=== PATIENT | female | born 1945 | race Caucasian/White ===

== ENCOUNTER → 2017-05-03 08:33 | Outpatient (CLI) | payer MEDICARE, OTHER, SELFPAY ==
--- NOTE | 2017-05-03 08:35 | HPBD_ITS ---
STUDY: DUAL ENERGY X-RAY ABSORPTIOMETRY / DXA REASON FOR EXAM: Female, 71 years old. The patient is postmenopausal. Loss of height. TECHNIQUE: Bone Mineral Density (BMD) measurements of lumbar spine and bilateral hips were obtained. COMPARISON: Comparison is made with prior examination dated March 27, 2015. FINDINGS: Lumbar Spine (L1-L4): g/cm2 (1.352) / T-score (1.5) / Z-score (3.2) Findings are suggestive of normal bone density with a low fracture risk. Left Femur Total: g/cm2 (1.107) / T-score (0.8) / Z-score (2.4) Left Femoral Neck: g/cm2 (0.940) / T-score (-0.7) / Z-score (1.1) Right Femur Total: g/cm2 (1.029) / T-score (0.2) / Z-score (1.8) Right Femoral Neck: g/cm2 (0.915) / T-score (-0.9) / Z-score (0.9) The T-Scores on the most recent prior examination were: Lumbar Spine (L1-L4): There has been worsening of bone density since the previous examination. Left Femur Total: which represents a worsening of 4.2%. Right Femur Total: which represents a worsening of 5.2%. HPBD/Dexa Bone Density Study (HP) IMPRESSION: The patient is considered normal as outlined below according to World Randy Organization (WHO) criteria with a low fracture risk. There has been worsening of bone density since the previous examination. Reference Information: The T-score is the number of standard deviations above or below the standard which is normal for young adults at their peak bone mineral density. The World Health Organization (WHO) interprets the T-scores as follows: Above -1 Normal bone density Between -1 and -2.5 Osteopenia Equal to / or below -2.5 Osteoporosis As a practical clinical guideline, osteopenia may be graded as follows: Mild -1 through -1.5 Moderate -1.6 through -2.0 Severe -2.1 through -2.4 The Z-score is the number of standard deviations above or below age-matched controls. A Z-score of less than -1.5 would be considered abnormal. References: 1. NIH Osteoporosis and Related Bone Diseases http://www.osteo.org 2. International Society for Clinical Densitometry http://www.iscd.org 3. National Osteoporosis Foundation http://www.nof.org Electronically Signed: Jairo Welch MD at 14:57 EST Tel [phone], Service support ,
== END ==
PROVIDERS: Family Provider Internal Medicine; PCP Internal Medicine; Visit Provider Internal Medicine
DX: Z78.0 Asymptomatic menopausal state (principal)
CPT/HCPCS: 77080

== ENCOUNTER → 2017-12-15 08:28 | Outpatient (CLI) | payer MEDICARE, OTHER, SELFPAY ==
--- NOTE | 2017-12-15 08:31 | BI_ITS ---
MAMMOGRAPHY - BILATERAL SCREENING REASON FOR EXAM: Female, 72 years old. Routine annual screening examination. PERTINENT HISTORY: Non-contributory. TECHNIQUE: Digital bilateral breast elizabeth (3D mammographic acquisition) in the CC and MLO projections. 2-D mediolateral oblique (MLO) and craniocaudad (CC) views of both breasts were obtained. CAD: Full Field Digital Mammography with Computer Added Detection was performed. COMPARISON: Comparison is made with prior study dated June 18, 2016 and April 17, 2015. FINDINGS: Breast Composition: There are scattered areas of fibroglandular density. There are no dominant masses or suspicious calcifications. Stable small benign-appearing bilateral axillary lymph nodes. No other significant abnormalities are identified. There has been no significant change since the prior study. BI/SCREENING MAMM (CAD), BILAT IMPRESSION: Stable bilateral screening mammogram. Yearly follow-up mammogram recommended. (A) ASSESSMENT CATEGORY: BIRADS Category 2: Benign. A letter regarding these results will be sent to the patient by the facility within 30 days. Approximately 10% of breast cancers are not detected by mammography. A normal mammogram should not delay biopsy of a clinically suspicious abnormality. [id number] Electronically Signed: Jairo Welch MD at 9:43 EDT Tel [phone], Service support ,
== END ==
PROVIDERS: Family Provider Internal Medicine; PCP Internal Medicine; Visit Provider Internal Medicine
DX: Z12.31 Encounter for screening mammogram for malignant neoplasm of breast (principal)
CPT/HCPCS: 77063; 77067

== ENCOUNTER → 2018-01-27 15:41 | Outpatient (CLI) | payer MEDICARE, OTHER, SELFPAY | PROVIDERS: Family Provider Internal Medicine; PCP Internal Medicine; Referring Provider Nurse Practitioner; Visit Provider Nurse Practitioner | DX: N89.8 Other specified noninflammatory disorders of vagina (principal) | CPT/HCPCS: 87070; 87205 ==

== ENCOUNTER → 2018-05-19 12:09 | Outpatient (CLI) | payer MEDICARE, OTHER, SELFPAY ==
--- NOTE | 2018-05-19 13:00 | MRI_ITS ---
STUDY: MRI BRAIN WITH AND WITHOUT CONTRAST (ATTENTION INTERNAL AUDITORY CANALS - I.A.C.s) REASON FOR EXAM: Female, 72 years old. Hearing loss with ataxia and headaches. TECHNIQUE: Standardized multiplanar fat and water weighted pulse sequences were obtained. Gadavist 10 ml IV was administered for the contrast portion of the examination. Several images are limited by patient motion. COMPARISON: Prior comparison studies are not available for review at this time. FINDINGS: Normal bilateral temporal bones. Normal bilateral internal auditory canals. There is no demonstrated intracanalicular or cisternal vestibular schwannoma (acoustic neuroma). There is no enhancement of the bilateral VIIth or VIIIth cranial nerves. Normal bilateral cochlea, vestibules and semicircular canals. There is mild cerebral atrophy with widening of the extra-axial spaces and ventricular dilatation. There are a limited number of small white matter hyperintensities, distributed throughout the deep white matter tracts of the cerebral hemispheres, consistent with mild chronic white matter ischemic changes. There is no evidence for recent intracranial ischemia or other cause of cytotoxic edema on diffusion weighted imaging (DWI). Normal T2* images of the brain without demonstrated susceptibility artifact. There is no demonstrated hemosiderin stain. There are prominent perivascular spaces (PVS) involving the basal ganglia. Normal thalami. Normal flow voids within the major intracranial circulation suggesting patency by spin echo criteria. Normal venous enhancement. There is no enhancing intra-axial or extra-axial abnormality. There is no extra-axial fluid accumulation. Normal sella turcica, pituitary gland, infundibular stalk, optic chiasm and hypothalamus. Normal tectal plate and pineal gland. Normal midbrain, ryan and medulla. There are mild involutional changes of the cerebellum with increased CSF in the posterior fossa. Normal basal cisterns. There are bilateral ocular lens implants with otherwise normal intraorbital contents. Normal visualized paranasal sinuses. Normal calvarium and skull base. Normal visualized soft tissue structures. Normal visualized upper cervical spine. MRI/Brain W/WO Contrast IMPRESSION: 1. Involutional changes of the brain, as described above. 2. No MR evidence of acute infarct. 3. No MR evidence for cerebellopontine angle mass or internal auditory canal lesion. Electronically Signed: Lorie Chavez MD at 11:53 EST , Service support ,
== END ==
PROVIDERS: Family Provider Internal Medicine; PCP Internal Medicine; Referring Provider Otolaryngology Otolaryngology/Facial Plastic Surgery; Visit Provider Otolaryngology Otolaryngology/Facial Plastic Surgery
DX: H91.21 Sudden idiopathic hearing loss, right ear (principal); H93.19 Tinnitus, unspecified ear; R51 Headache; R27.0 Ataxia, unspecified
CPT/HCPCS: 70553; A9585

== ENCOUNTER → 2018-08-21 | Outpatient (CLI) | payer MEDICARE, OTHER, SELFPAY ==
--- NOTE | 2018-08-21 13:41 | STRESSREP ---
Stress Test Report Pharmacologic myocardial perfusion stress test. 72-year-old lady with a history of exertional chest pain. Medications Metformin carvedilol losartan atorvastatin. Stress protocol: Resting EKG demonstrates normal sinus rhythm with a rate of 75 bpm normal intervals are noted resting blood pressures 152/82 mmHg. The patient exercised according to regular Mario protocol for a total duration of 4 minutes and 45 seconds. The maximum heart rate attained was 127 bpm which was 86% of maximum predicted heart rate the maximum workload was 6.7 metabolic equivalents. The patient maintained sinus rhythm throughout the recording. At rest there were no ST or T wave changes noted suggest ischemia at peak exercise mildly upsloping ST changes were noted with no meet the criteria for ischemia. No clinical angina was noted the test was terminated due to shortness of breath. The resting blood pressure was 152/82 with a final blood pressure of 150/88. Myocardial perfusion protocol. 11.9 mCi of technetium 99m sestamibi was injected at rest. The patient exercised according to regular Mario protocol for 4 minutes and 45 seconds at peak exercise 34.2 mCi of technetium 99m sestamibi was injected stress images were obtained stress and rest images were reconstructed in comparing the short axis vertical long horizontal long axis. Gated images were also obtained Perfusion SPECT analysis: Review of the stress images demonstrate normal uptake of tracer noted in all areas of the myocardium. The resting images similarly demonstrate normal uptake of tracer noted in all areas of myocardium. No areas of reversibility are noted suggest ischemia. No previous infarct is noted. Gated SPECT analysis: The gated ejection fraction is noted to be 77%. Conclusion: Normal exercise myocardial perfusion stress test at a moderate workload Preserved ejection fraction.
== END | disposition home or self-care (01) ==
LOC: CVS 06:39
PROVIDERS: Family Provider Internal Medicine; PCP Internal Medicine; Referring Provider Internal Medicine; Visit Provider Internal Medicine
DX: R07.9 Chest pain, unspecified (principal)
CPT/HCPCS: 78452; 93017; A9500; A4216; J2785

== ENCOUNTER → 2018-12-20 14:37 | Outpatient (CLI) | payer MEDICARE, OTHER, SELFPAY ==
--- NOTE | 2018-12-20 14:39 | BI_ITS ---
MAMMOGRAPHY - BILATERAL SCREENING REASON FOR EXAM: Female, 73 years old. Routine annual screening examination. PERTINENT HISTORY: Non-contributory. TECHNIQUE: Digital bilateral breast concepcion (3D mammographic acquisition) in the CC and MLO projections. 2-D mediolateral oblique (MLO) and craniocaudad (CC) views of both breasts were obtained. CAD: Full Field Digital Mammography with Computer Added Detection was performed. COMPARISON: Comparison is made with prior study dated December 15, 2017 and June 18, 2016. FINDINGS: Breast Composition: There are scattered areas of fibroglandular density. There are no dominant masses or suspicious calcifications. Stable small benign-appearing bilateral axillary lymph nodes. No other significant abnormalities are identified. There has been no significant change since the prior study. BI/SCREEN MAMM (CAD) W/CONCEPCION BILAT IMPRESSION: Stable bilateral screening mammogram. Yearly follow-up mammogram recommended. (A) ASSESSMENT CATEGORY: BIRADS Category 1: Negative. A letter regarding these results will be sent to the patient by the facility within 30 days. Approximately 10% of breast cancers are not detected by mammography. A normal mammogram should not delay biopsy of a clinically suspicious abnormality. [id number] Electronically Signed: Jairo Welch, at 15:54 EDT , Service support ,
== END ==
PROVIDERS: Family Provider Internal Medicine; PCP Internal Medicine; Referring Provider Internal Medicine; Visit Provider Internal Medicine
DX: Z12.31 Encounter for screening mammogram for malignant neoplasm of breast (principal)
CPT/HCPCS: 77063; 77067

== ENCOUNTER 2019-06-27 17:47 | Emergency (ER) | payer MEDICARE, OTHER, SELFPAY ==
[2019-06-27 17:48] VITALS: BP 176/87; PULSE 88; RESP 16; TEMP 36.6; O2SAT 98; BMI 35.3
--- NOTE | 2019-06-27 17:48 | NURSING ---
NO OLD EKGS
--- NOTE | 2019-06-27 18:02 | EKG12_ITS ---
Test Reason : Blood Pressure : / mmHG Vent. Rate : 078 BPM Atrial Rate : 078 BPM P-R Int : 174 ms QRS Dur : 098 ms QT Int : 386 ms P-R-T Axes : 060 -33 040 degrees QTc Int : 440 ms Normal sinus rhythm Left axis deviation Abnormal ECG Confirmed by MISTY GARCIA, MALATHI ([id number]), editor magazine RYAN ESCALANTE ([id number]) on 06/29/2019 9:36:13 AM Referred By: DARREL Confirmed By:SPENCER JAY MD
--- NOTE | 2019-06-27 18:03 | ED.DCSUM_ITS ---
History of Present Illness Chief Complaint: Palpitations Narrative: Patient states she was woken up in the middle of the night this past night, 12 or more hours ago from now, with the feeling like her heart was beating hard. She denies it beating fast, skipping. She just states that the rate seemed normal but she could tell it was beating which is abnormal for her she usually does not feel that as she is walking around. She states this was intermittent. She also had intermittent chest tightness, 3 or 4 episodes lasting 15 or 20 minutes at a time, nonpleuritic and without any dyspnea. No lightheadedness or syncope/near syncope. No recent travel, pain or swelling in her legs, history of venous thromboembolic disease, and she does not take any anticoagulants. No history of heart disease. She had a stress test 8 months ago that was negative, and has never needed a heart catheterization. She is on losartan and carvedilol for blood pressure and has been compliant with it not skipping or running out of any of these medicines. She denies taking any decongestants in the last couple days. 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 Called her doctor who earlier had her take an extra dose of her losartan 50 mg, and later sent her to the ER. - Past Medical History (1) Recurrent UTI (urinary tract infection) Status: Chronic (2) Hyperlipidemia Status: Chronic (3) Hypertension Status: Chronic (4) Irritable bowel syndrome Status: Chronic (5) M?ni?re's disease Status: Chronic (6) Osteoarthritis Status: Chronic (7) Type 2 diabetes mellitus Status: Chronic (8) Vitamin D deficiency Status: Chronic Past Medical History - Allergies and Home Meds Allergies/Adverse Reactions: Allergies No Known Allergies Allergy (Verified 06/27/19 17:50) Primary Care Physician: Indu Soria DO [Primary Care Provider] - Surgical History: - - sections, nasal reconstruction, tubal ligation, bilateral total knee replacement, cataract extraction with intraocular lens implants, hysterectomy, cholecystectomy and carpal tunnel surgery. Lives: Alone Smoking Status: Never smoker - Family History Maternal Family History: Reports: Cancer - ovarian with mets to the lung and the brain in mother Paternal Family History: Reports: - - father had a brain tumor Sibling Family History: Reports: - - sister with BPD, Brother with DM...also with FH of alcoholism in a brother Review of Systems General: Denies: Chills, Fever, Sweats Eyes: Denies: Visual changes - bilaterally, Diplopia ENT: Denies: Bilateral ear pain, Rhinorrhea, Sore throat Cardiovascular: Reports: Chest pain - without radiation when occur, Palpitations. Denies: Heart racing Respiratory: Denies: Dyspnea, Cough, Sputum, Dyspnea on exertion, Orthopnea Gastrointestinal: Denies: Abdominal pain, Nausea, Vomiting, Diarrhea, Melena, Hematochezia Genitourinary: Denies: Dysuria, Hematuria, Frequency Musculoskeletal: Denies: Neck pain, Back pain, Swelling, Extremity Pain Skin: Denies: Rash, Wounds Neurological: Denies: Headache, Weakness, Numbness Physical Exam Vital Signs/Narrative: Vital Signs Temp Pulse Resp BP Pulse Ox 06/27/19 17:48 97.9 F 88 16 176/87 H 98 Inital Vital Signs reviewed: Yes General: Well nourished, Well developed, Obese, No Acute Distress Head: Normocephalic, Atraumatic Eyes: Perrl, EOMI ENT: Moist mucous membranes, No rhinorrhea Neck: Supple, Nontender, No lymphadenopathy, No JVD Cardiovascular: Regular rate, Regular rhythm, No murmurs, Normal S1, Normal S2. Negative for: Tachycardia Respiratory: No distress, CTA bilaterally, Chest nontender Abdomen: Soft, Nontender, Nondistended, Normal bowel sounds Back: Nontender, Normal Inspection, CVA tenderness Extremities: Nontender, No edema. Negative for: Calf Tenderness Skin: Normal color, No rash, No Trauma Neurological: Alert, Oriented x3, Cranial nerves II-XII grossly intact, Normal Strength, Normal Sensation, Normal Gait Psychological: Normal affect, Normal Mood Diagnostic/Tx/Re-eval Impressions Chest X-Ray 06/27/19 19:19 IMPRESSION: Normal x-ray examination of the chest. Electronically Signed: Peter Gao DO at 19:50 EDT Tel [phone], Service support , 06/27/19 19:19 Chest 1 View (Portable) [RAD] Stat Laboratory Results 06/27/19 06/27/19 18:36 18:36 WBC 10.0 RBC 4.36 Hgb 13.3 Hct 38.7 MCV 88.8 MCH 30.5 MCHC 34.4 RDW Std Deviation 38.9 RDW Coeff of Rojelio 12.0 Plt Count 294 MPV 9.6 Immature Gran % (Auto) 0.500 Neut % (Auto) 67.1 Lymph % (Auto) 24.5 Whitfield % (Auto) 6.8 Eos % (Auto) 0.7 Baso % (Auto) 0.4 Absolute Neuts (auto) 6.7 Absolute Lymphs (auto) 2.46 Nucleated RBC % 0 Sodium 142 Potassium 3.8 Chloride 111 H Carbon Dioxide 24.0 Anion Gap 7 BUN 18 Creatinine 1.06 H Estim Creat Clear Calc 36.83 Est GFR (MDRD) Af Amer 65 Est GFR (MDRD) Non-Af 54 L BUN/Creatinine Ratio 17.0 Glucose 122 H Calcium 9.6 Troponin I < 0.015 - Rhythm Strip Rhythm Strip: Sinus Rhythm Rate: 78 Ectopy: None - EKG Initial EKG Interpretation: Sinus Rhythm, No Acute Injury Pattern, LAFB Prior: No Prior - Medical Decision Making Prior to being able to give her anything for her blood pressure, her pressure came down to the 140s on recheck. Nursing held the clonidine that was ordered. It did not become necessary, her pressure went up into the 150s at one point, but she had no recurrent chest discomfort or other acute symptoms. Her work-up is negative. I feel she can safely be discharged home to follow-up with her doctor with regards to medication changes and outpatient testing. ED Disposition - Plan for ED Patient: Disposition: Home or Assisted Living Diagnosis: Intermittent chest pain, Accelerated hypertension Instructions: ED High Blood Pressure Established Out of Control, ED Chest Pain Atypical Unkn Cause Referrals: Indu Soria DO [Primary Care Provider] - 2 Days Additional Instructions: If you continue to have elevated pressures over 165 systolic, you may double your carvedilol (both doses if necessary) if your doctor has not yet gotten back to you about medication changes.
[2019-06-27] MEDS: Aspirin 81 MG TAB.CHEW 324 MG PO (18:24)
[2019-06-27 18:25] VITALS: BP 143/67; PULSE 79; RESP 16; O2SAT 96
[2019-06-27 18:31] VITALS: BP 132/84; PULSE 81; RESP 16; O2SAT 97
[2019-06-27 18:42] LABS: Absolute Lymphocyte Count 2.46 X10^3/uL (0.83-4.51); Absolute Neutrophil Count 6.7 X10^3/uL (2.0-7.7); Basophil# 0.04 X10^3/uL; Basophil% 0.4 % (0-1); Eosinophil# 0.07 X10^3/uL; Eosinophils% 0.7 % (0-5); Hematocrit 38.7 % (37-47); Hemoglobin 13.3 g/dL (12.0-15.0); Lymphocyte # 2.46 X10^3/ul (4.0); Lymphocyte % 24.5 % (19-41); Mean Corp Hgb Conc 34.4 g/dL (32-36); Mean Corpuscular Hgb 30.5 pg (27.0-32.0); Mean Corpuscular Volume 88.8 fL (81-99); Mean Platelet Vol. 9.6 fl (6.2-12.0); Monocyte# 0.68 X10^3/uL; Monocyte% 6.8 % (0-10); NRBC Flagged by Analyzer 0 % (0-5); Neutrophil # 6.74 X10^3/uL (2.7-7.7); Neutrophil % 67.1 % (47-70); Platelet Count 294 K/mm3 (150-450); RBC Distribution Width SD 38.9 fl (35.1-43.9); Red Blood Count 4.36 M/mm3 (4.2-5.4)
[2019-06-27 18:59] LABS: Anion Gap 7 (5-15); BUN 18 mg/dL (7-18); Calcium,Total 9.6 mg/dL (8.5-10.1); Chloride 111 mmol/L (98-107); Creatinine, Serum 1.06 mg/dL (0.55-1.02); EST Glomerular Filtration Rate 54 mL/min (>60); Est Glom Filt Rate - Afr Amer 65 mL/min (>60); Estimated Creatinine Clearance 36.83 ml/min; Glucose 122 mg/dL (74-106); Potassium 3.8 mmol/L (3.5-5.1); Sodium Level 142 mmol/L (136-145)
--- NOTE | 2019-06-27 19:19 | RAD_ITS ---
STUDY: X-RAY CHEST REASON FOR EXAM: Female, 73 years old. CHEST PALPITATIONS TODAY. NO PAIN OR PRIOR CARDIAC HX. TECHNIQUE: Frontal view COMPARISON: None. FINDINGS: The lungs are clear and expanded. There is no demonstrated pleural abnormality. Normal size heart. Normal mediastinum and shelli. Normal visualized pulmonary arteries. Normal visualized aortic arch and descending thoracic aorta. Normal visualized thoracic spine. Normal visualized ribs, clavicles, and shoulders. There is no demonstrated abnormality of the visualized soft tissue structures of the upper abdomen. RAD/Chest 1 View (Portable) IMPRESSION: Normal x-ray examination of the chest. Electronically Signed: Peter Gao DO at 19:50 EDT Tel [phone], Service support ,
[2019-06-27 20:17] VITALS: BP 152/77; PULSE 67; RESP 16; O2SAT 97
== END 2019-06-27 20:23 | disposition home or self-care (01) ==
PROVIDERS: Emergency Provider Emergency Medicine; PCP Internal Medicine
DX: R07.89 Other chest pain (principal); I10 Essential (primary) hypertension; E66.9 Obesity, unspecified; K58.9 Irritable bowel syndrome, unspecified; E11.9 Type 2 diabetes mellitus without complications; E55.9 Vitamin D deficiency, unspecified; M19.90 Unspecified osteoarthritis, unspecified site; H81.09 Meniere's disease, unspecified ear; Z87.440 Personal history of urinary (tract) infections; Z79.4 Long term (current) use of insulin; Z79.84 Long term (current) use of oral hypoglycemic drugs; Z79.899 Other long term (current) drug therapy
CPT/HCPCS: 71045; 80048; 84484; 85025; 93005; 99284; A4216

== ENCOUNTER 2019-07-11 19:18 | Emergency (ER) | payer MEDICARE, OTHER, SELFPAY ==
[2019-07-11 19:19] VITALS: BP 161/76; PULSE 62; RESP 13; TEMP 36.8; O2SAT 97; BMI 36.3
[2019-07-11 19:33] VITALS: BP 158/70; PULSE 65; RESP 16; O2SAT 96
--- NOTE | 2019-07-11 19:52 | EKG12_ITS ---
Test Reason : DIZZINESS Blood Pressure : / mmHG Vent. Rate : 061 BPM Atrial Rate : 061 BPM P-R Int : 180 ms QRS Dur : 096 ms QT Int : 410 ms P-R-T Axes : 003 -25 004 degrees QTc Int : 412 ms Normal sinus rhythm Normal ECG Confirmed by MISTY GARCIA, MALATHI ([id number]), graphics editor RYAN ESCALANTE ([id number]) on 07/16/2019 10:55:01 AM Referred By: DR STAPLES Confirmed By:SPENCER JAY MD
--- NOTE | 2019-07-11 19:52 | CT_ITS ---
STUDY: CT BRAIN WITHOUT CONTRAST REASON FOR EXAM: Female, 73 years old. DIZZINESS,NAUSEA,NUMBNESS AND TINGLING TO BILAT ARMS -- HX:HTN,DIABETES,MENIERE''S DISEASE RADIATION DOSAGE (If Supplied By Facility): CTDIvol = ( 44.99 ) mGy, DLP = ( 796.11 ) mGycm TECHNIQUE: Transaxial CT imaging of the brain was performed without administration of intravenous contrast material. Individualized dose optimization techniques were used for this CT. COMPARISON: No relevant priors. FINDINGS: Normal soft tissue structures. Normal calvarium. Normal size ventricles and extra-axial spaces for the patient''s age. Mild periventricular white matter ischemic changes.. Normal basal ganglia and thalami. Normal brainstem. Normal cerebellum. There is no intracranial hemorrhage. There are no findings of an acute ischemic infarction. Postsurgical changes of the orbits Normal visualized paranasal sinuses. CT/Brain/Head without Contrast IMPRESSION: Mild periventricular matter ischemic changes. No evidence for acute bleed. If concern for acute infarct MRI recommended.. Electronically Signed: Rober Bejarano MD at 20:35 EDT , Service support ,
--- NOTE | 2019-07-11 19:55 | ED.DCSUM_ITS ---
- ER Visit Summary Date of Service: 07/11/19 Chief Complaint: Transient dizziness History of Present Illness: The patient is a 73 F history of insulin-dependent diabetes, hypertension, valvular heart disease, M?ni?re's. Patient states around 10 AM today she had dizziness which resolved quickly. Then tonight it began around 5:30 PM. Said it also had tingling in her left arm went across her chest and her right arm. No chest pain. No shortness of breath. She did have some nausea vomiting associated with it. There was kind of a room spinning sensation. States she feels better now just a little tired. Denies any visual change currently. Denies any trouble using her arms or legs. Denies any tro uble with speech. She is never had a stroke or mini stroke. She denies any headache. No recent head trauma. She is on no blood thinners. States she is never had anything like this before. Physical Examination: Older female no acute distress. Initial blood pressure 161/76. She does not look septic or toxic. H EENT exam normal. No signs of trauma. Pupils are unreactive laser motions are intact. No facial droop. Normal speech. TMs normal bilaterally. No wax. Neck nontender no lymphadenopathy. Lungs clear to auscultation bilaterally. Heart regular rate and rhythm no murmur rate about 60. Chest were nontender. Abdomen soft nontender normal bowel sounds no peritoneal signs. Patient moving all 4 extremities. Neurovascular intact. 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 Dorsi plantarflexion intact. Calves are nontender without edema. Neurologically she is awake alert with no focal motor or sensory deficits. Normal speech. No facial droop. Fingertip to nose within normal limits. She has no drift. NIH score is 0. Test Results: CAT scan of the brain showed mild periventricular ischemic white matter changes. But no acute stroke or bleed. EKG sinus rhythm rate of 61 no acute signs of LA or ischemia. No dysrhythmia. CBC showed a white count of 13 with a hemoglobin of 12 and hematocrit 38. No bands. Chemistries unremarkable gap of 6. Creatinine 0.9. Orthostatic vital signs were negative. Emergency Department Course and Treatment: Older female with dizziness currently resolved. Her Hallpike maneuver is negative. I cannot reproduce the dizziness at this time. Her neurologic exam is normal. She undergo screening exams. CAT scan of her brain. She will be ambulated to assess her gait and balance. Repeat exam patient is doing well at 21:02 PM. She will be discharged home with outpatient follow-up. I walked the patient prior to discharge. Treatment Plan: Follow-up with her primary care physician. Disposition: Discharge Impression: Acute dizziness of uncertain etiology History of insulin-dependent diabetes History of hypertension This note was generated with [employer] dictation software. It may contain incorrect words, spelling, and punctuation that were not noted in review of the chart prior to signing ED Disposition - Plan for ED Patient: Referrals: Indu Soria DO [Primary Care Provider] -
[2019-07-11 20:07] VITALS: BP 149/67; BP 150/68; BP 152/71; PULSE 64; PULSE 67; PULSE 71
[2019-07-11 20:28] LABS: Anion Gap 6 (5-15); BUN 18 mg/dL (7-18); BUN/Creat Ratio 19.3 RATIO (10-20); Calcium,Total 9.2 mg/dL (8.5-10.1); Chloride 107 mmol/L (98-107); Creatinine, Serum 0.93 mg/dL (0.55-1.02); EST Glomerular Filtration Rate 62 mL/min (>60); Est Glom Filt Rate - Afr Amer 76 mL/min (>60); Estimated Creatinine Clearance 41.97 ml/min; Glucose 121 mg/dL (74-106); Potassium 3.9 mmol/L (3.5-5.1); Sodium Level 140 mmol/L (136-145)
[2019-07-11 20:44] LABS: Absolute Lymphocyte Count 1.91 X10^3/uL (0.83-4.51); Absolute Neutrophil Count 10.5 X10^3/uL (2.0-7.7); Basophil# 0.04 X10^3/uL; Basophil% 0.3 % (0-1); Eosinophil# 0.09 X10^3/uL; Eosinophils% 0.7 % (0-5); Hematocrit 38.2 % (37-47); Hemoglobin 12.8 g/dL (12.0-15.0); Lymphocyte # 1.91 X10^3/ul (4.0); Lymphocyte % 14.4 % (19-41); Mean Corp Hgb Conc 33.5 g/dL (32-36); Mean Corpuscular Hgb 29.9 pg (27.0-32.0); Mean Corpuscular Volume 89.3 fL (81-99); Mean Platelet Vol. 9.9 fl (6.2-12.0); Monocyte# 0.64 X10^3/uL; Monocyte% 4.8 % (0-10); NRBC Flagged by Analyzer 0 % (0-5); Neutrophil # 10.51 X10^3/uL (2.7-7.7); Neutrophil % 79.4 % (47-70); Platelet Count 256 K/mm3 (150-450); RBC Distribution Width SD 38.6 fl (35.1-43.9); Red Blood Count 4.28 M/mm3 (4.2-5.4); White Blood Count 13.2 K/mm3 (4.4-11.0)
--- NOTE | 2019-07-11 21:02 | ED.DEP ---
ED Disposition - Plan for ED Patient: Disposition: Home or Assisted Living Instructions: ED Dizziness [facility] Referrals: Indu Soria, [Primary Care Provider] - As soon as possible Additional Instructions: Follow-up with your doctor call tomorrow to get an appointment. Your labs, EKG and CAT scan today were unremarkable.
[2019-07-11 21:21] VITALS: BP 147/65; PULSE 65; RESP 16; O2SAT 97
== END 2019-07-11 21:22 | disposition home or self-care (01) ==
PROVIDERS: Emergency Provider Emergency Medicine; PCP Internal Medicine
DX: R42 Dizziness and giddiness (principal); R11.2 Nausea with vomiting, unspecified; E11.9 Type 2 diabetes mellitus without complications; I10 Essential (primary) hypertension; H81.09 Meniere's disease, unspecified ear; E78.00 Pure hypercholesterolemia, unspecified; Z79.4 Long term (current) use of insulin; Z79.84 Long term (current) use of oral hypoglycemic drugs; Z79.899 Other long term (current) drug therapy
CPT/HCPCS: 70450; 80048; 85025; 93005; 99285; J7030; A4216

== ENCOUNTER → 2020-01-03 12:14 | Outpatient (CLI) | payer MEDICARE, OTHER, SELFPAY ==
--- NOTE | 2020-01-03 12:17 | BI_ITS ---
MAMMOGRAPHY - BILATERAL SCREENING REASON FOR EXAM: Female, 74 years old. Routine annual screening examination. PERTINENT HISTORY: Non-contributory. TECHNIQUE: Digital bilateral breast concepcion (3D mammographic acquisition) in the CC and MLO projections. 2-D mediolateral oblique (MLO) and craniocaudad (CC) views of both breasts were obtained. CAD: Full Field Digital Mammography with Computer Added Detection was performed. COMPARISON: Comparison is made with prior examination dated 12/20/2018 and 12/15/2017. FINDINGS: Breast Composition: There are scattered areas of fibroglandular density. There are no dominant masses or suspicious calcifications. Stable small benign appearing bilateral axillary lymph nodes. No other significant abnormalities are identified. There has been no significant change since the prior study. BI/SCREEN MAMM (CAD) W/CONCEPCION BILAT IMPRESSION: Stable bilateral screening mammogram. Yearly follow-up mammogram recommended. (A) ASSESSMENT CATEGORY: BIRADS Category 2: Benign. A letter regarding these results will be sent to the patient by the facility within 30 days. Approximately 10% of breast cancers are not detected by mammography. A normal mammogram should not delay biopsy of a clinically suspicious abnormality. [id number] Electronically Signed: Jairo Welch, at 13:39 EDT , Service support ,
--- NOTE | 2020-01-03 12:20 | BD_ITS ---
STUDY: DUAL ENERGY X-RAY ABSORPTIOMETRY / DXA REASON FOR EXAM: Female, 74 years old. Age of jordon 49. Pat is 186.9# and 62 and quot; a loss of 1'' per pat. Past use of steroid injections in her knees. Type II diabetic and takes metformin and trulicity. Takes 1200mg calcium and a multi-vit daily. Does a little exercising. Hx of a foot and nose fx. TECHNIQUE: Bone Mineral Density (BMD) measurements of lumbar spine and bilateral hips were obtained. COMPARISON: Comparison is made with prior examination dated 05/03/2017. FINDINGS: Lumbar Spine (L1-L4): g/cm2 (1.335) / T-score (1.4) / Z-score (3.2) Findings are suggestive of normal bone density with a low fracture risk. Left Femur Total: g/cm2 (1.122) / T-score (0.9) / Z-score (2.6) Left Femoral Neck: g/cm2 (0.956) / T-score (-0.6) / Z-score (1.3) Right Femur Total: g/cm2 (1.032) / T-score (0.2) / Z-score (1.9) Right Femoral Neck: g/cm2 (0.980) / T-score (-0.4) / Z-score (1.5) The T-Scores on the most recent prior examination were: Lumbar Spine (L1-L4): There has been improvement of bone density since the previous examination. Left Femur Total: which represents an improvement of 1.4%. Right Femur Total: which represents an improvement of 0.3%. BD/Dexa Bone Density Study IMPRESSION: The patient is considered normal as outlined below according to World Randy Organization (WHO) criteria with a low fracture risk. There has been improvement of bone density since the previous examination. Reference Information: The T-score is the number of standard deviations above or below the standard which is normal for young adults at their peak bone mineral density. The World Health Organization (WHO) interprets the T-scores as follows: Above -1 Normal bone density Between -1 and -2.5 Osteopenia Equal to / or below -2.5 Osteoporosis As a practical clinical guideline, osteopenia may be graded as follows: Mild -1 through -1.5 Moderate -1.6 through -2.0 Severe -2.1 through -2.4 The Z-score is the number of standard deviations above or below age-matched controls. A Z-score of less than -1.5 would be considered abnormal. References: 1. NIH Osteoporosis and Related Bone Diseases www osteo.org 2. International Society for Clinical Densitometry www iscd.org 3. National Osteoporosis Foundation www nof.org Electronically Signed: Jairo Welch, at 12:46 EDT , Service support ,
== END ==
PROVIDERS: PCP Internal Medicine; Referring Provider Internal Medicine; Visit Provider Internal Medicine
DX: Z12.31 Encounter for screening mammogram for malignant neoplasm of breast (principal); Z78.0 Asymptomatic menopausal state
CPT/HCPCS: 77063; 77067; 77080

== ENCOUNTER → 2020-02-20 09:10 | Outpatient (CLI) | payer MEDICARE, OTHER, SELFPAY ==
[2020-01-31 16:22] VITALS: BMI 34.0
== END ==
PROVIDERS: PCP Internal Medicine; Referring Provider Internal Medicine; Visit Provider Internal Medicine
DX: R00.2 Palpitations (principal)
CPT/HCPCS: 93225; 93226

== ENCOUNTER → 2020-03-31 14:39 | Outpatient (CLI) | payer MEDICARE, OTHER, SELFPAY ==
[2020-01-31 16:22] VITALS: BMI 34.0
--- NOTE | 2020-03-31 14:43 | VDLE_ITS ---
Reason For Study: Pain, Swelling Procedure LEFT This is a venous duplex using B-mode, color GSV is normal. flow and spectral Doppler. CFV is compressible, spontaneous, phasic, Exam performed in department. competent, and demonstrates normal A preliminary report was called and/or faxed augmentation. to [facility]. FV is compressible, spontaneous, phasic, competent and demonstrates normal augmentation. POP V is compressible, spontaneous, phasic, competent and demonstrates normal augmentation. T/P Trunk is compressible. PTV is compressible. LT PerV is compressible. Interpretation Summary There is no evidence of left lower extremity deep vein thrombosis. Left great saphenous vein appears patent and compressible segmentally. Ordering Physician: Won Saenz Referring Physician: Indu Soria M.D. Performed By: Sheron Cabrales RVT
== END ==
PROVIDERS: PCP Internal Medicine; Referring Provider Physician Assistant; Visit Provider Physician Assistant
DX: M79.662 Pain in left lower leg (principal); S82.025A Nondisplaced longitudinal fracture of left patella, initial encounter for closed fracture
CPT/HCPCS: 93971

== ENCOUNTER → 2020-04-01 | Outpatient (CLI) | payer MEDICARE, OTHER, SELFPAY ==
[2020-01-31 16:22] VITALS: BMI 34.0
== END | disposition home or self-care (01) ==
LOC: LABSPEC 13:58
PROVIDERS: PCP Internal Medicine; Referring Provider Internal Medicine; Visit Provider Internal Medicine
DX: R09.81 Nasal congestion (principal)
CPT/HCPCS: 87633

== ENCOUNTER → 2020-05-09 | Outpatient (CLI) | payer MEDICARE, OTHER, SELFPAY ==
[2020-01-31 16:22] VITALS: BMI 34.0
== END | disposition home or self-care (01) ==
LOC: LABSPEC 12:21
PROVIDERS: PCP Internal Medicine; Referring Provider Nurse Practitioner; Visit Provider Nurse Practitioner
DX: J30.9 Allergic rhinitis, unspecified (principal)
CPT/HCPCS: 87633

== ENCOUNTER → 2020-05-14 06:00 | Outpatient (CLI) | payer MEDICARE, OTHER, SELFPAY ==
[2020-01-31 16:22] VITALS: BMI 34.0
--- NOTE | 2020-05-14 10:14 | STRESSREP_ITS ---
Stress Test Report Date: 05-14-2020 Procedure: Pharmacologic stress nuclear imaging study Indications: Chest pain Consent: Per the patient Procedure: The patient underwent pharmacologic (Regadenoson 0.4mg ) evaluation with a peak heart rate of 90 beats per minute (62%predicted maximal heart rate) and a peak blood pressure of 134/60 mmHg. The baseline ECG demonstrated sinus rhythm. The peak pharmacologic ECG demonstrated no obvious ECG changes. There were no cardiac dysrhythmias pretest, during pharmacologic infusion, or recovery. There was no complaint of chest discomfort during pharmacologic infusion or recovery. The examination was discontinued secondary to completion of protocol. Impression: 1. Pharmacologic (Regadenoson) evaluation 2. Peak pharmacologic ECG with no obvious ECG changes. 3. There were no cardiac dysrhythmias pretest, during pharmacologic infusion, or recovery. 4. Nuclear images pending Myocardial perfusion imaging study: Technique: The patient was injected with 11.3 millicuries of technetium 99m Cardiolite and subsequently rest SPECT Cardiolite nuclear imaging was obtained in the horizontal long, vertical long, and short axis views. The patient underwent pharmacologic (Regadenoson) evaluation with a peak heart rate of 90 beats per minute (62% percent predicted maximal heart rate) and a peak blood pressure of 134/60 mmHg. The patient was injected with 36.0 millicuries of technetium 99m Cardiolite and subsequently stress SPECT Cardiolite nuclear imaging was obtained in the horizontal long, vertical long, and short axis views. A gated Cardiolite study at peak stress was obtained. Interpretation: Rest and stress SPECT Cardiolite nuclear imaging status post realignment, normalization, and attenuation correction demonstrate a small area of subtle diminished tracer uptake near the mid to distal anterior segments which appears to improve/normalize following stress. There is end systolic thickening and brightening. The gated Cardiolite study demonstrates myocardial thickening and inward wall motion. The reported LVEF is 88% %. Impression: 1. Rest and stress SPECT her nuclear imaging demonstrate resting myocardial perfusion changes which appear to improve/normalize following stress appearing compatible with shifting soft tissue attenuation/artifact with no myocardial perfusion changes considered diagnostic for associated stress-induced myocardial ischemia. 2. The gated Cardiolite study reports an LVEF of 88%. This note was generated with [employer] software. It may contain incorrect words, spelling, and punctuation that were not noted in checking the note before signing.
== END ==
PROVIDERS: PCP Internal Medicine; Referring Provider Internal Medicine; Visit Provider Internal Medicine
DX: R07.89 Other chest pain (principal)
CPT/HCPCS: 78452; 93017; A9500; A4216; J2785

== ENCOUNTER 2021-01-19 15:59 | Outpatient (CLI) | payer MEDICARE, OTHER, SELFPAY ==
[2021-01-19] MEDS: 0.9% Saline Lock 10 ML Syringe IV (16:09)
[2021-01-19 16:15] VITALS: BP 146/61; PULSE 64; RESP 16; TEMP 36.4; O2SAT 98; BMI 34.5
[2021-01-19 17:10] VITALS: BP 152/45; PULSE 57; RESP 16; TEMP 36.6; O2SAT 99
[2021-01-19 18:07] VITALS: BP 166/61; PULSE 57; RESP 16; TEMP 36.7; O2SAT 100
== END 2021-01-19 18:12 | disposition home or self-care (01) ==
LOC: MS3OUT 16:00 → MS3 16:01
PROVIDERS: PCP Internal Medicine; Referring Provider Nurse Practitioner Adult Health; Visit Provider Nurse Practitioner Adult Health
DX: Z23 Encounter for immunization (principal); U07.1 COVID-19
CPT/HCPCS: J7050; M0245; Q0245; A4216

== ENCOUNTER → 2021-02-28 08:46 | Outpatient (CLI) | payer MEDICARE, OTHER, SELFPAY ==
--- NOTE | 2021-02-28 08:47 | BI_ITS ---
MAMMOGRAPHY - BILATERAL SCREENING REASON FOR EXAM: Female, 75 years old. Routine annual screening examination. PERTINENT HISTORY: Non-contributory. TECHNIQUE: Digital bilateral breast concepcion (3D mammographic acquisition) in the CC and MLO projections. 2-D mediolateral oblique (MLO) and craniocaudad (CC) views of both breasts were obtained. CAD: Full Field Digital Mammography with Computer Added Detection was performed. COMPARISON: Comparison is made with prior examination dated 01/03/2020 and 12/20/2018. FINDINGS: Breast Composition: There are scattered areas of fibroglandular density. There are no dominant masses or suspicious calcifications. No other significant abnormalities are identified. There has been no significant change since the prior study. BI/SCRN MAMM (CAD)W/CONCEPCION BILAT IMPRESSION: Stable bilateral screening mammogram. Yearly follow-up mammogram recommended. (A) ASSESSMENT CATEGORY: BIRADS Category 1: Negative. A letter regarding these results will be sent to the patient by the facility within 30 days. Approximately 10% of breast cancers are not detected by mammography. A normal mammogram should not delay biopsy of a clinically suspicious abnormality. [id number] Electronically Signed: Jairo Welch MD at 8:39 EST , Service support ,
== END ==
PROVIDERS: PCP Internal Medicine; Referring Provider Internal Medicine; Visit Provider Internal Medicine
DX: Z12.31 Encounter for screening mammogram for malignant neoplasm of breast (principal)
CPT/HCPCS: 77063; 77067

== ENCOUNTER 2021-04-02 10:34 | Outpatient (CLI) | payer MEDICARE, OTHER, SELFPAY ==
--- NOTE | 2021-04-02 10:39 | VDUE_ITS ---
Reason For Study: swelling Left Proximal Jugular V and Subclavian V are dilated and noncompressible. Left Arm Left axillary vein is spontaneous, patent, phasic, competent, compressible and demonstrates augmentation. Left brachial vein is compressible. Left cephalic vein is compressible. Left basilic vein is compressible. Left Lower Arm Left radial vein is compressible. Left ulnar vein is compressible. Prelim called to Dr. Soria. VL/Venous Duplex US, Unilateral Interpretation Summary Acute deep venous thrombosis left internal jugular and subclavian veins. Left axillary and more distal veins appear to be patent and compressible includ ing the left brachial and cephalic vein Ordering Physician: Indu Soria Performed By: Stiven Fair RVT ?
== END 2021-04-02 23:59 | disposition short-term general hospital (02) ==
LOC: CVS 10:36
PROVIDERS: PCP Internal Medicine; Referring Provider Internal Medicine; Visit Provider Internal Medicine
DX: I82.C12 Acute embolism and thrombosis of left internal jugular vein (principal)
CPT/HCPCS: 93971

== ENCOUNTER → 2021-07-15 | Outpatient (CLI) | payer MEDICARE, OTHER, SELFPAY ==
--- NOTE | 2021-07-15 08:44 | VDUE_ITS ---
Reason For Study: s/p DVT Right Proximal Left Proximal Right subclavian vein is spontaneous, widely Lt IJV and Lt SubcV are partially patent, phasic, with no intraluminal compressible with minimal blood flow noted. echogenicity noted. Left Arm Left axillary vein is spontaneous, patent, phasic, competent, compressible and demonstrates augmentation. Left brachial vein is compressible. Left cephalic vein is compressible. Left basilic vein is compressible. Left Lower Arm Left radial vein is compressible. Left ulnar vein is compressible. VL/Venous Duplex US, Unilateral Interpretation Summary Chronic deep venous thrombosis left internal jugular vein and left subclavian v ein with minimal blood flow noted. Patent and compressible left cephalic and basilic veins Normal flow patterns right subclavian vein Slight improvement noted from the previous examination April 02, 2021 Ordering Physician: Indu Soria Referring Physician: Indu Soria Performed By: Michaelle Murillo, NOEMY, RVT ?
== END | disposition home or self-care (01) ==
LOC: CVS 08:42
PROVIDERS: PCP Internal Medicine; Referring Provider Internal Medicine; Visit Provider Internal Medicine
DX: I82.622 Acute embolism and thrombosis of deep veins of left upper extremity (principal)
CPT/HCPCS: 93971

== ENCOUNTER → 2021-12-03 | Outpatient (CLI) | payer MEDICARE, OTHER, SELFPAY ==
--- NOTE | 2021-12-03 09:16 | BI_ITS ---
MAMMOGRAPHY - UNILATERAL DIAGNOSTIC: RIGHT BREAST REASON FOR EXAM: Female, 76 years old. One-month history of right breast lump with a axillary tenderness. PERTINENT HISTORY: Non-contributory. TECHNIQUE: Digital unilateral breast elizabeth (3D mammographic acquisition) in the CC and MLO projections. 2-D mediolateral oblique (MLO) and craniocaudad (CC) views of both breasts were obtained. CAD: Full Field Digital Mammography with Computer Added Detection was performed. COMPARISON: Comparison is made with prior study dated 02/28/2021 and 01/03/2020. FINDINGS: Breast Composition: There are scattered areas of fibroglandular density. There are no dominant masses or suspicious calcifications. Stable small benign-appearing left axillary lymph nodes. No other significant abnormalities are identified. There has been no significant change since the prior study. BI/DIAG MAMM W/CAD, UNILAT IMPRESSION: Stable unilateral diagnostic mammogram. With the patient''s history of a palpable lump in the upper lateral aspect of the right breast, correlation with ultrasound is recommended. ASSESSMENT CATEGORY: BIRADS Category 0: Incomplete. Need additional imaging evaluation. A letter regarding these results will be sent to the patient by the facility within 30 days. Approximately 10% of breast cancers are not detected by mammography. A normal mammogram should not delay biopsy of a clinically suspicious abnormality. Electronically Signed: Jairo Welch MD at 10:36 EDT ,
--- NOTE | 2021-12-03 09:16 | US_ITS ---
STUDY: ULTRASOUND BREAST - RIGHT REASON FOR EXAM: Female, 76 years old. Palpable lump in the right breast. TECHNIQUE: Axial and longitudinal images of the RIGHT breast were performed with a high resolution ultrasound transducer. # OF IMAGES: 21 COMPARISON: Comparison is made with prior mammogram done earlier in the day. FINDINGS: RIGHT Breast: The axillary region of the right breast was examined with ultrasound. No sonographic abnormality is seen. US/Breast Limited Unilateral IMPRESSION: No sonographic abnormality is seen. ASSESSMENT CATEGORY: BIRADS Category 1: Negative. A letter regarding these results will be sent to the patient by the facility within 30 days. Electronically Signed: Jairo Welch MD at 10:38 EDT ,
== END | disposition home or self-care (01) ==
LOC: US 09:14
PROVIDERS: PCP Internal Medicine; Referring Provider Internal Medicine; Visit Provider Internal Medicine
DX: N64.59 Other signs and symptoms in breast (principal)
CPT/HCPCS: 76642; 77061; 77065; G0279

== ENCOUNTER 2022-01-27 09:00 | Outpatient (RCR) | payer MEDICARE, OTHER, SELFPAY ==
--- NOTE | 2021-12-23 13:44 | HP.PTEVAL_ITS ---
Patient's Visit Information LIBERTAD ESTRADA is a 76 year old F referred to Physical Therapy by Dr. Indu Soria DO with a diagnosis of CERVICAL, THORACIC AND LUMBAR M. SPASMS/STRAIN AND CERV RADIC. Date of Evaluation: 12/23/21 Physical Therapist: Cierra Marcos, PT, Cert MDT - Visit Plan Frequency: 2-3x /Week Duration: 4-6 Months Plan: US AND STM X 6 TO L NECK AND MED SCAP REGIONS (OK TO DO RIGHT SIDE TOO). POSTURE CORRECTION/STRENGTHENING, INSTRUCTION IN APPROPRIATE BODY MECHANICS AND ACTIVITY MODIFICATIONS. DLS WITH A NUETRAL SPINE. DIPAK UE AND LE ROM, STRETCHING AND STRENGTHENING. HEP INSTRUCTION. - Subjective Work/Leisure: RETIRED. LIVES WITH SPOUSE WHOM IS IN GOOD HEALTH FOR HIS AGE. Present symptoms: CHIEF C/O LEFT NECK/SHLD/SHLD BLADE PAIN. MID BACK PAIN IS ALSO CHEIF COMPLAINT. SOMETIMES RIGHT NECK AND SHLD PAIN TOO. L SHLD PAIN GOES INTO UPPER ARM TOO. MILD LOW BACK PAIN - CHRONIC. Present since: COUPLE MONTHS AGO. Pain Scale: WORST 5/10, LEAST 1/10. Currently: 3/10. Commenced as a result of: NO APPARENT REASON BUT PAIN INCREASED TRYING TO HELP SISTER WITH TRANSFERS. Symptoms at onset: LEFT SHLD. Worse: MOVING, BENDING TO DO HOUSEWORK, REACHING, DRIVING. Better: HEAT AND MOTRIN. RESTING. Disturbed sleep: YES - SOMETIMES. Previous history/Previous treatment: CHRONIC LBP. NO HISTORY OF NECK OR L SHLD PAIN. REMOTE HISTORY OF R SHLD SX - ARTHROSCOPIC. LBP HAS BEEN SELF MANAGED. NO SPINE SX. NO SPINE INJECTIONS. NO L SHLD SX OR INJECITON. Treatment this episode: PT CONSULT. ANTI-INFL AND MUSCLE RELAXER PRESCRIBED BUT CAN'T TAKE M. RELAXER. Coughing/sneezing/straining: POSITIVE. Gait: NORMAL FOR PATIENT. Bowel or Bladder Dysfunction: NO BUT H/O UTI'S. Accidents: NO. Unexplained weight loss: NO. Imaging: NO RECENT NECK OR UPPER BACK X-RAYS. LUMBAR X-RAY SEPTEMBER 2020: FINDINGS: VERTEBRAE: Preserved vertebral body height. No fracture. 4 mm. anterolisthesis L2 on L3. Preservation of the normal lumbar lordosis. Severe multilevel facet arthropathy. DISCS: Severe multilevel degenerative disc disease and spondylosis. INCLUDED ABDOMEN: Included bowel gas pattern is non-obstructive. RAD/L/S Spine Min 4 Views. IMPRESSION: . Grade 1 anterolisthesis L2 on L3. . Severe multilevel degenerative disc disease and spondylosis. . Electronically Signed: Ruben Hanna MD. at 19:58 EDT. PMH: SEE BELOW. DIPAK TKR'S. - Objective Sitting/Standing Posture: POOR. FH. RS'S. INCREASED TRUNK FLEXION. Active Correction of posture: BETTER. Other Observations: INDEP GAIT AND TRANSFERS. Sensory deficit: DIPAK UE AND LE LIGHT TOUCH SENSATION GROSSLY INTACT AND SYMMETRICAL. ROM deficit: TIGHT DIPAK HIP IR'S, HS'S AND GASTROC SOLEUS COMPLEX'S. DIPAK UE ROM WFL BUT REACHING UP, OUT AND BACK WITH L UE INCREASES L NECK AND SHLD PAIN. Motor deficit: DIPAK LE'S GROSSLY 5/5 WITH MMT'ING EXCEPT HIPS 4/5. DIPAK UE STRENGTH GROSSLY 4/5 BUT L SHLD 4-/5. Dural Signs: NEGATIVE DIPAK LE'S. POSITIVE L UE. Cervical Mvmt Loss: Flex: MIN - INCREASES L SHLD AND DIPAK NECK PAIN. Pro: NIL - INCREASES L NECK PAIN. Ext: NIKKI. Ret: NIKKI. RSB: NIKKI - INCREASES L NECK PAIN. LSB: NIKKI - INCREASES L NECK PAIN. R Rot: MOD. L Rot: MOD. Postural strength: POOR. Lumbar mvmt loss: flex - MIN. ext - NIKKI. R SG - NIKKI. L SG - NIKKI. PATIENT DENIES INCREASED PAIN WITH LUMBAR ROM TESTING ALL PLANES. THORACIC MVMT LOSS: DIPAK ROT - MOD - DENIES INCREASED MID BACK PAIN. Core strength: POOR. Palpation: NO ACUTE SPINE TENDERNESS IN CERVICAL, THORACIC OR LUMBAR SPINE TODAY WITH LIGHT PALPATION. TENDERNESS WITH PALPATION OF LEFT UPPER TRAP AND LEFT MEDIAL SCAP REGIONS BUT NOT DELTOID. TREATMENT: NEUROMUSCULAR REEDUCATION - RETRAINING OF MVMT AND POSTURE FOR SITTING, LYING AND STANDING ACTIVITIES. - Balance/Special Test Scores Oswestry Low Back Score: 8 Oswestry Neck Score: 7 - Goals Goal 1:: DECREASE C/O SPINE PAIN Goal Time Frame: 4-6 Weeks Goal 2:: IMPROVE STANDING, WALKING, SITTING, READING, AND HOMEMAKING FUNCTION Goal Time Frame: 4-6 Weeks Goal 3:: INSTRUCT IN PROPHYLAXIS Goal Time Frame: 4-6 Weeks - Anticipated Interventions Patient/Client Instruction: Educate patient on: Condition, Plan of Care, Risk Factors For the Purpose of:: To improve self management Therapeutic Exercise to Include: Strength training, Body mechanics, Postural training, Flexibilty training, Neuromotor development, In an aquatic setting, Dynamic Lumbar Stabilization, Scapular Strength/Stabilization For the Purpose of:: To decrease pain, To increase ROM, To improve muscle performance and motor function, To increase tolerance to activity/condition/position, To improve ability of physical actions for home/community/work/leisure Cryotherapy (ice pack, ice massage): Yes Thermo therapy (hot pack): Yes Ultrasound (thermal/non thermal): Yes For the Purpose of:: To decrease pain, To improve nutrient delivery to tissue Thank you for the opportunity to evaluate your patient. For Medicare and Medicare HMO plans, please review the plan of care and approve it. It will need to be FAXED BACK to us at [phone] for Medicare purposes. For Medicare only, by signing this I certify the plan of care. Please let me know if there are questions or concerns regarding this plan of care. Physician Signature: Date:
--- NOTE | 2022-06-24 11:51 | HP.PTDCNRP_ITS ---
LIBERTAD ESTRADA was seen in my office for initial evaluation on 12/23/21. The following Plan of Care was established for this patient: Initial Frequency: 2-3x /Week Initial Duration: 4-6 Months Patient/Client Instruction: Educate patient on: Condition, Plan of Care, Risk Factors For the Purpose of:: To improve self management Therapeutic Exercise to Include: Strength training, Body mechanics, Postural training, Flexibilty training, Neuromotor development, In an aquatic setting, Dynamic Lumbar Stabilization, Scapular Strength/Stabilization For the Purpose of:: To decrease pain, To increase ROM, To improve muscle perfo rmance and motor function, To increase tolerance to activity/condition/position, To improve ability of physical actions for home/community/work/leisure Cryotherapy (ice pack, ice massage): Yes Thermo therapy (hot pack): Yes Ultrasound (thermal/non thermal): Yes For the Purpose of:: To decrease pain, To improve nutrient delivery to tissue This patient was last seen in our office 01/27/22. Pertinent comments regarding their Physical therapy will appear below: This patient has not returned to Physical Therapy and is appropriate to return to MD for further follow-up as needed. At this point I will be discontinuing this patient from physical therapy. I would be happy to see this patient again in the future if found appropriate by the physician. Thank you! Cierra Marcos, PT, Cert MDT Balance/Gait/Functional tests - Balance/Special Test Scores Oswestry Low Back Score: 8 Oswestry Neck Score: 7
== END 2022-01-27 19:00 | disposition home or self-care (01) ==
LOC: PT 09:00
PROVIDERS: PCP Internal Medicine; Referring Provider Internal Medicine; Visit Provider Internal Medicine
DX: M54.2 Cervicalgia; M54.12 Radiculopathy, cervical region; M62.830 Muscle spasm of back
CPT/HCPCS: 97035; 97140; 97162; 97530

== ENCOUNTER 2022-02-20 13:36 | Emergency (ER) | payer MEDICARE, OTHER, SELFPAY ==
[2022-02-20 13:37] VITALS: BP 189/78; PULSE 81; RESP 18; TEMP 36; O2SAT 100; BMI 34.7
--- NOTE | 2022-02-20 13:48 | EX.ED.UPPERE ---
HPI History of Present Illness Chief Complaint: Upper Extremity Injury Detail of Chief Complaint: Pain Informant: patient Narrative Narrative: Patient presents secondary left arm pain and swelling. She is having neck and left shoulder pain for several weeks. She had an x-ray that showed arthritic changes. She states that she is currently being scheduled for an MRI of her neck and shoulder. She is had intermittent pain shooting down her left arm, but states last night it was worse. She had difficulty finding a position of comfort. When she got up this morning her pain was improved, however she feels that her left arm and hand are swollen. She is a history of DVT and when she called her doctor she was advised to come in and get an ultrasound. Unfortunately she presents on a Tuesday afternoon by did not have vascular ultrasound available and they did not do upper extremity ultrasounds on the weekend. [facility] Medical History Actinic keratoses Arthralgia of multiple sites Arthritis Back pain Benign essential hypertension Cataract Chest tightness Controlled diabetes mellitus DM (diabetes mellitus), type 2, uncontrolled, with renal complications H/o nasal reconstruction Hearing loss History of fall within past 90 days History of frequent headaches Hyperlipidemia, unspecified Irritable bowel syndrome with diarrhea Knee pain, acute Meniere disease Muscle spasm of back Nocturia Palpitations QIAN Rib pain on right side Sinus drainage Sinusitis, bacterial Stress reaction, emotional Type II diabetes mellitus, well controlled Uncontrolled type 2 diabetes mellitus Urinary frequency Vaginal atrophy Vitamin D deficiency Home Medications atorvastatin 10 mg tablet 10 mg PO DAILY cholesterol 09/23/16 [History Last Taken 09/22/16] calcium carbonate 600 mg-vitamin D3 20 mcg (800 unit) tablet 2 ea PO DAILY supplement 09/23/16 [History Last Taken 09/23/16 07:00] metformin 1,000 mg tablet 1,000 mg PO BID diabetes 09/23/16 [History Last Taken 09/23/16 07:00] Cholecalciferol (Vitamin D3) [Vitamin D3] 5,000 unit PO DAILY 07/11/19 [History Last Taken Unknown] ascorbic acid (vitamin C) 250 mg tablet 250 mg PO DAILY 07/11/19 [History Last Taken Unknown] dulaglutide 1.5 mg/0.5 mL subcutaneous pen injector 1.5 mg SQ TU 07/11/19 [History Last Taken Unknown] insulin degludec 100 unit/mL (3 mL) subcutaneous pen 15 units SQ QHS 07/11/19 [History Last Taken Unknown] nitrofurantoin macrocrystal 50 mg capsule 100 mg PO QHS 07/11/19 [History Last Taken Unknown] oxybutynin chloride 10 mg tablet,extended release 24 hr 10 mg PO QHS 07/11/19 [History Last Taken Unknown] carvedilol 6.25 mg tablet 12.5 mg PO BID blood pressure 02/01/20 [History Last Taken Unknown] estradiol 0.01% (0.1 mg/gram) vaginal cream (Estrace) 1 applic vaginal Q3D 02/01/20 [History Last Taken Unknown] losartan 50 mg tablet 100 mg PO DAILY 02/01/20 [History Last Taken Unknown] multivitamin (Multiple Vitamins tablet) 1 tab PO DAILY 02/01/20 [History Last Taken Unknown] cranberry 400 mg capsule 400 mg PO DAILY 01/19/21 [History Last Taken Unknown] hydrocodone-acetaminophen 5-325mg 5mg-325mg 1 tab PO Q6H PRN pain 3 days #10 tabs 02/20/22 [Rx Last Taken Unknown] Allergy/AdvReac Type Severity Reaction Status Date / Time ciprofloxacin [From Cipro] Allergy Hives Verified 02/20/22 13:37 Family History Brother Diabetes Alcohol abuse Mother Brain cancer Lung cancer Ovarian cancer Father Brain tumor Blood disorder Sister Bipolar disorder Surgical History H/O section H/O total knee replacement H/O tubal ligation H/O: hysterectomy History of carpal tunnel surgery History of cholecystectomy History of intraocular lens implant Social History household members: spouse Smoking Status: Never smoker alcohol intake: current alcohol intake frequency: a few times a week substance use type: does not use what type of physical activity do you participate in: none ROS ROS ED Constitutional Constitutional ED: Denies chills or fever(s) Eyes Eyes: Denies change in vision or discharge from eye(s) ENT ENT ED: Denies discharge from eye(s), rhinorrhea or sore throat Cardiovascular Cardiovascular: Denies chest pain or palpitations Respiratory/Chest Respiratory/Chest: Denies cough or dyspnea Gastrointestinal Gastrointestinal: Denies abdominal pain, diarrhea, nausea or vomiting Genitourinary Genitourinary ED: Denies difficulty urinating or dysuria Musculoskeletal Musculoskeletal: Reports extremity pain and neck pain; Denies back pain Integumentary Denies Abrasions or rash Neurologic Neurologic: Reports paresthesias; Denies headache(s) or weakness Psychiatric Psychiatric: Denies anxiety or depression Allergic/Immunologic Allergic/Immunologic ED: Denies lip swelling or urticaria EXAM Physical Exam Const Vital Signs: 02/20/22 13:37 Temperature 96.8 F L Temperature Source Temporal Pulse Rate 81 Respiratory Rate 18 Blood Pressure 189/78 H Blood Pressure Mean 115 Pulse Ox 100 Oxygen Delivery Method Room Air Positive well nourished and well developed General Appearance ED: well developed HEENT Reports normocephalic and head/scalp atraumatic Eyes PERRL and EOMs intact bilaterally Neck supple Neck Narrative: Mild left cervical paraspinal tenderness. Chest Wall inspection of chest normal and palpation of chest normal Resp normal respiratory effort and clear to auscultation bilaterally Cardio regular rate and regular rhythm GI normal to inspection, nondistended, normoactive bowel sounds Palpation: soft Extremity Extremity Narrative: No reproducible tenderness with palpation over the left shoulder. Mild edema noted to the left upper extremity. Strong distal pulses are noted with good cap refill. Good sensation on testing. Neuro oriented x3 and no sensory deficits noted Sensorium / Orientation: alert Motor Exam: strength 5/5 throughout Psych mental status grossly normal Skin no rashes or lesions noted MDM MDM MDM Narrative Medical decision making narrative: Patient presents on a weekend for upper extremity ultrasound and this is not available. I will place the order and will be performed Tuesday morning. To help control patient's pain I will write her a short course of Scurry. She states she will try half a tab at bedtime to see if that helps her pain. Return instructions are given. Discharge Plan Triage Chief Complaint: Upper Extremity Injury ED Provider: Suzette Dhillon Dx/Rx/DC Orders Clinical Impression: Cervical radiculopathy, Arm edema Instructions: ED Neck Pain, ED Peripheral Edema, Unilateral, ED Radiculopathy, Cervical Prescriptions: New hydrocodone-acetaminophen 5-325 mg tablet 1 tab PO Q6H PRN (Reason: pain) 3 Days Qty: 10 0RF No Action estradiol [Estrace] 0.01 % (0.1 mg/gram) cream 1 applic VAGINAL Q3D Rx Instructions: twice weekly multivitamin [Multiple Vitamins] Tablet 1 tab PO DAILY atorvastatin 10 MG tablet 10 mg PO DAILY metformin 1,000 MG tablet 1,000 mg PO BID calcium carbonate-vitamin D3 1 EACH tablet 2 ea PO DAILY carvedilol 6.25 mg tablet 12.5 mg PO BID nitrofurantoin macrocrystal 50 mg capsule 100 mg PO QHS oxybutynin chloride 10 MG tablet extended release 24hr 10 mg PO QHS ascorbic acid (vitamin C) 250 MG tablet 250 mg PO DAILY insulin degludec 100 unit/mL (3 mL) insulin pen 15 units SQ QHS dulaglutide 1.5 mg/0.5 mL pen injector 1.5 mg SQ Label Comments: GIVEN ON TUESDAY. Cholecalciferol (Vitamin D3) [Vitamin D3] 5,000 UNIT capsule 5,000 unit PO DAILY losartan 50 mg tablet 100 mg PO DAILY cranberry 400 mg Capsule 400 mg PO DAILY Other Ambulatory Orders: Venous Duplex US, Unilateral (Stat) Facility: [facility] - Location: [facility] Ordered By: Dr. Suzette Dhillon Primary Care Provider: Indu Soria Referrals: Indu Soria DO [Primary Care Provider] - 5-7 Days Disposition Disposition: Home, Self Care
[2022-02-20 14:13] VITALS: BP 139/76; PULSE 84; RESP 16; O2SAT 97
== END 2022-02-20 14:13 | disposition home or self-care (01) ==
PROVIDERS: Emergency Provider Emergency Medicine; PCP Internal Medicine; Visit Provider Emergency Medicine
DX: M54.12 Radiculopathy, cervical region (principal); E11.9 Type 2 diabetes mellitus without complications; M25.512 Pain in left shoulder; I10 Essential (primary) hypertension; M19.90 Unspecified osteoarthritis, unspecified site; R60.0 Localized edema; E78.5 Hyperlipidemia, unspecified; M79.89 Other specified soft tissue disorders; R20.2 Paresthesia of skin
CPT/HCPCS: 99282

== ENCOUNTER 2022-02-21 11:01 | Outpatient (CLI) | payer MEDICARE, OTHER, SELFPAY ==
--- NOTE | 2022-02-21 11:11 | VDUE_ITS ---
Reason For Study: Left Arm Swellig Right Proximal Left Proximal Right subclavian vein is spontaneous, widely Left jugular vein is dilated with patent, phasic, with no intraluminal intraluminal echogenicity and diminished echogenicity noted. venous flow. Left subclavian vein is dilated with intraluminal echogenicity notedthroughout. Left Arm Left axillary vein is dilated with intraluminal echogenicity noted and no Doppler flow noted. Left brachial vein is dilated with intraluminal echogenicity noted and diminished Doppler flow noted. Brachial vein intraluminal echogenicity extends fromorigin throughout 1 of 2 duplicate veins. Left cephalic vein is compressible. Basilic vein intraluminal echogenicity extends fromOrigin to mid bicep. Left Lower Arm Left radial vein is compressible. Ulnar vein intraluminal echogenicity extends fromorigin to mid forearm. VL/Venous Duplex US, Unilateral Interpretation Summary Deep venous thrombosis involving the left internal jugular, subclavian, axillar y, brachial veins with duplicate vein, ulnar vein. Superficial thrombophlebitis left basilic vein from its origin to the mid bicep . Normal flow patterns right subclavian vein Ordering Physician: Suzette Dhillon Referring Physician: Suzette Dhillon Performed By: Leandro Felix RVT ???
== END 2022-02-21 23:59 | disposition home or self-care (01) ==
LOC: US 11:03
PROVIDERS: PCP Internal Medicine; Referring Provider Emergency Medicine; Visit Provider Emergency Medicine
DX: R22.32 Localized swelling, mass and lump, left upper limb (principal)
CPT/HCPCS: 93971

== ENCOUNTER 2022-02-21 11:48 | Emergency (ER) | payer MEDICARE, OTHER, SELFPAY ==
[2022-02-21 11:49] VITALS: BP 163/77; PULSE 84; RESP 16; TEMP 35.8; O2SAT 98; BMI 34.7
--- NOTE | 2022-02-21 12:07 | EX.ED.UPPERE ---
HPI History of Present Illness Chief Complaint: Upper Extremity Injury Informant: patient Narrative Narrative: 76-year-old female was seen in the emergency room yesterday as an outpatient ultrasound ordered of her left arm for rule out DVT. She has previously had a DVT and was on Eliquis. She states that she has about 30 days of Eliquis remaining at home. She returned today for the duplex ultrasound which shows clot in the jugular vein extending into the internal jugular vein. There is also clot in the left subclavian and down to the brachial vein. She denies any chest pain or shortness of breath. She denies any new dyspnea on exertion. No shoulder pain or other signs and symptoms of PE. [facility] Medical History Actinic keratoses Arthralgia of multiple sites Arthritis Back pain Benign essential hypertension Cataract Chest tightness Controlled diabetes mellitus DM (diabetes mellitus), type 2, uncontrolled, with renal complications H/o nasal reconstruction Hearing loss History of fall within past 90 days History of frequent headaches Hyperlipidemia, unspecified Irritable bowel syndrome with diarrhea Knee pain, acute Meniere disease Muscle spasm of back Nocturia Palpitations QIAN Rib pain on right side Sinus drainage Sinusitis, bacterial Stress reaction, emotional Type II diabetes mellitus, well controlled Uncontrolled type 2 diabetes mellitus Urinary frequency Vaginal atrophy Vitamin D deficiency Home Medications atorvastatin 10 mg tablet 10 mg PO DAILY cholesterol 09/23/16 [History Last Taken 09/22/16] calcium carbonate 600 mg-vitamin D3 20 mcg (800 unit) tablet 2 ea PO DAILY supplement 09/23/16 [History Last Taken 09/23/16 07:00] metformin 1,000 mg tablet 1,000 mg PO BID diabetes 09/23/16 [History Last Taken 09/23/16 07:00] Cholecalciferol (Vitamin D3) [Vitamin D3] 5,000 unit PO DAILY 07/11/19 [History Last Taken Unknown] ascorbic acid (vitamin C) 250 mg tablet 250 mg PO DAILY 07/11/19 [History Last Taken Unknown] dulaglutide 1.5 mg/0.5 mL subcutaneous pen injector 1.5 mg SQ TU 07/11/19 [History Last Taken Unknown] insulin degludec 100 unit/mL (3 mL) subcutaneous pen 15 units SQ QHS 07/11/19 [History Last Taken Unknown] nitrofurantoin macrocrystal 50 mg capsule 100 mg PO QHS 07/11/19 [History Last Taken Unknown] oxybutynin chloride 10 mg tablet,extended release 24 hr 10 mg PO QHS 07/11/19 [History Last Taken Unknown] carvedilol 6.25 mg tablet 12.5 mg PO BID blood pressure 02/01/20 [History Last Taken Unknown] estradiol 0.01% (0.1 mg/gram) vaginal cream (Estrace) 1 applic vaginal Q3D 02/01/20 [History Last Taken Unknown] losartan 50 mg tablet 100 mg PO DAILY 02/01/20 [History Last Taken Unknown] multivitamin (Multiple Vitamins tablet) 1 tab PO DAILY 02/01/20 [History Last Taken Unknown] cranberry 400 mg capsule 400 mg PO DAILY 01/19/21 [History Last Taken Unknown] hydrocodone-acetaminophen 5-325mg 5mg-325mg 1 tab PO Q6H PRN pain 3 days #10 tabs 02/20/22 [Rx Last Taken Unknown] apixaban 5 mg tablet (Eliquis) 5 mg PO BID #74 tabs 02/21/22 [Rx Last Taken Unknown] Allergy/AdvReac Type Severity Reaction Status Date / Time ciprofloxacin [From Cipro] Allergy Hives Verified 02/21/22 11:48 Family History Brother Diabetes Alcohol abuse Mother Brain cancer Lung cancer Ovarian cancer Father Brain tumor Blood disorder Sister Bipolar disorder Surgical History H/O section H/O total knee replacement H/O tubal ligation H/O: hysterectomy History of carpal tunnel surgery History of cholecystectomy History of intraocular lens implant Social History household members: spouse Smoking Status: Never smoker alcohol intake: current alcohol intake frequency: a few times a week substance use type: does not use what type of physical activity do you participate in: none ROS ROS ED Constitutional Constitutional ED: Denies chills, fever(s) or weight loss Eyes Eyes: Denies change in vision or diplopia ENT ENT ED: Denies ear pain, rhinorrhea or sore throat Cardiovascular Cardiovascular: Denies chest pain, orthopnea, palpitations or racing heartbeat Respiratory/Chest Respiratory/Chest: Reports other Details: Dyspnea on exertion but is chronic with no change recently ; Denies cough, dyspnea or orthopnea Gastrointestinal Gastrointestinal: Denies abdominal pain, diarrhea, nausea or vomiting Genitourinary Genitourinary ED: Denies dysuria, hematuria or urinary frequency Musculoskeletal Musculoskeletal: Reports other Details: Left arm swelling ; Denies arthralgias or myalgias Integumentary Denies abscess or rash Neurologic Neurologic: Denies headache(s) or weakness Psychiatric Psychiatric: Denies anxiety, depression, suicidal ideation or suicidal thoughts Endocrine Endocrinology: Denies polydipsia, polyphagia or polyuria Allergic/Immunologic Allergic/Immunologic ED: Denies mouth swelling, tongue swelling or urticaria EXAM Physical Exam Const Vital Signs: 02/21/22 11:49 Temperature 96.5 F L Temperature Source Temporal Pulse Rate 84 Respiratory Rate 16 Blood Pressure 163/77 H Blood Pressure Mean 105 Pulse Ox 98 Oxygen Delivery Method Room Air Positive well nourished and well developed General Appearance ED: well developed HEENT Reports normocephalic, head/scalp atraumatic and moist mucous membranes Eyes PERRL and EOMs intact bilaterally Neck full ROM, no lymphadenopathy, supple and no JVD Resp normal respiratory effort and clear to auscultation bilaterally Cardio regular rate, regular rhythm and no murmurs GI normal to inspection, nondistended, normoactive bowel sounds and non-tender Palpation: soft Back/Spine no CVA tenderness and normal ROM Extremity Extremity Narrative: There is swelling of the left hand and forearm. There is no evidence of compartment syndrome. There is good capillary refill. There is no skin discoloration Neuro oriented x3 and CN's II-XII intact bilaterally Sensorium / Orientation: alert Motor Exam: strength 5/5 throughout Psych mental status grossly normal Mood & Affect: Negative for depressed or tearful Skin no rashes or lesions noted and no wounds MDM MDM MDM Narrative Medical decision making narrative: I reviewed the ultrasound performed an independent examination of the patient. I also spoke with Dr. Sommers from vascular surgery who recommends starting the patient back on Eliquis. He can follow-up with the patient in the next few days. She was given return instructions Discharge Plan Triage Chief Complaint: Upper Extremity Injury ED Provider: Roverto Dawson Dx/Rx/DC Orders Clinical Impression: Acute deep vein thrombosis (DVT) of left upper extremity Instructions: DVT Complications Prescriptions: New Eliquis 5 mg tablet 5 mg PO BID Qty: 74 0RF Rx Instructions: 10 mg twice a day for the first week. Then 5 mg twice a day. No Action estradiol [Estrace] 0.01 % (0.1 mg/gram) cream 1 applic VAGINAL Q3D Rx Instructions: twice weekly multivitamin [Multiple Vitamins] Tablet 1 tab PO DAILY atorvastatin 10 MG tablet 10 mg PO DAILY metformin 1,000 MG tablet 1,000 mg PO BID calcium carbonate-vitamin D3 1 EACH tablet 2 ea PO DAILY carvedilol 6.25 mg tablet 12.5 mg PO BID nitrofurantoin macrocrystal 50 mg capsule 100 mg PO QHS oxybutynin chloride 10 MG tablet extended release 24hr 10 mg PO QHS ascorbic acid (vitamin C) 250 MG tablet 250 mg PO DAILY insulin degludec 100 unit/mL (3 mL) insulin pen 15 units SQ QHS dulaglutide 1.5 mg/0.5 mL pen injector 1.5 mg SQ Label Comments: GIVEN ON TUESDAY. Cholecalciferol (Vitamin D3) [Vitamin D3] 5,000 UNIT capsule 5,000 unit PO DAILY losartan 50 mg tablet 100 mg PO DAILY cranberry 400 mg Capsule 400 mg PO DAILY hydrocodone-acetaminophen 5-325 mg tablet 1 tab PO Q6H PRN (Reason: pain) 3 Days Qty: 10 0RF Primary Care Provider: Indu Soria Referrals: Maykel Sommers MD [Med Staff - Active Staff] - As soon as possible Indu Soria DO [Primary Care Provider] - Activity Restrictions/Additional Instructions: Dr. Sommers is a vascular surgeon and an expert in blood clots. I spoke with him today regarding your ultrasound and he would like to see you in the next couple days. Please call his office If you experience chest pain shortness of breath syncope please return to emergency As you have been off of your Eliquis we need you to take 10 mg by mouth twice a day for 7 days then begin 5 mg twice a day Disposition Disposition: Home, Self Care
[2022-02-21] MEDS: APIXABAN 5 MG TABLET 10 MG PO (12:17)
== END 2022-02-21 12:19 | disposition home or self-care (01) ==
LOC: ED 12:07
PROVIDERS: Emergency Provider Emergency Medicine; PCP Internal Medicine; Visit Provider Emergency Medicine
DX: I82.622 Acute embolism and thrombosis of deep veins of left upper extremity (principal); I82.B12 Acute embolism and thrombosis of left subclavian vein; E11.9 Type 2 diabetes mellitus without complications; E78.5 Hyperlipidemia, unspecified; I10 Essential (primary) hypertension; Z79.01 Long term (current) use of anticoagulants
CPT/HCPCS: 93971; 99282

== ENCOUNTER → 2022-03-16 | Outpatient (CLI) | payer MEDICARE, OTHER, SELFPAY ==
--- NOTE | 2022-03-16 07:29 | MRI_ITS ---
STUDY: MRI CERVICAL SPINE WITHOUT CONTRAST REASON FOR EXAM: Female, 76 years old. CERVICAL RADICULOPATHY TECHNIQUE: Standardized fat and water weighted pulse sequences were obtained in the sagittal and axial planes. COMPARISON: None FINDINGS: Normal foramen magnum and brainstem-cervical cord junction. Normal craniovertebral junction. Normal anterior atlantoaxial articulation. Normal odontoid process. Mild cervical kyphosis at the C4-C5 disc space level. Abnormal C7, T1 and T2 vertebral bodies worrisome for bone metastatic disease. C2-3: Normal endplates. Normal disc height, signal and morphology. Normal central canal and right intervertebral neural foramen. Mild stenosis of the left intervertebral neural foramen due to moderate left degenerative facet arthropathy. C3-4: Normal endplates. Normal disc height, signal and morphology. Normal central canal and right intervertebral neural foramen. Mild stenosis of the left intervertebral neural foramen due to moderately pronounced left degenerative facet arthropathy. C4-5: Normal endplates. Mild disc space height narrowing. Mild ventral extradural defect due to small posterior bulging annulus. Normal central canal. Moderate stenosis of the right intervertebral neural foramen and mild stenosis of the left intervertebral neural foramen. C5-6: Normal endplates. Pronounced disc space height narrowing. Mild ventral extradural defect due to posterior marginal spurs. Mild central canal stenosis with an AP canal diameter of 6.6 mm. Mild stenosis of the intervertebral neural foramina. C6-7: Normal C6 inferior endplate. Abnormal T1 and T2 dark intensity involving a large portion of the C7 vertebral body and abnormal T1 hypointensity of the C7 spinous process and left C7 lamina. The T1 hypointensity is a new area of edema on the STIR sequence. Normal central canal and right intervertebral neural foramen. Moderate stenosis of the left intervertebral neural foramen. C7-T1: Normal C7 inferior endplate. Abnormal T1 and T2 dark intensity is involving a large portion of the C7 vertebral body and the even greater involvement of the T1 vertebral body. There is abnormal T1 hypointensity which becomes hyperintense on sagittal STIR sequence involving the C7 and T1 spinous processes, the left C7 lamina, the left T1 lamina, the left T1 pedicle, left T1 transverse process and right T1 pedicle. These are highly suspicious for bone metastases. Normal central canal and intervertebral neural foramina. T1-T2: Normal endplates. Normal disc height, signal and morphology. Abnormal T1 and T2 dark intensity foci involving the T1 and T2 vertebral bodies. Normal central canal and intervertebral neural foramina. T2-T3 and T3-T4: (Sagittal only). Normal endplates. Normal disc height, signal and morphology. Normal central canal and intervertebral neural foramina. Normal cervical cord. Normal included upper thoracic spinal cord, brainstem and cerebellum. Normal included midline pituitary gland, anterior third ventricle and infundibular stalk. Abnormal edema of the soft tissues around the left T1-T2 intervertebral neural foramen more than the left T2-T3 intervertebral neural foramen. MRI/Spine Cervical (Routine) IMPRESSION: 1. Probable bone metastases involving C7, T1 and T2 vertebral bodies, C7 spinous process, left C7 lamina, T1 spinous process, left T1 lamina, both T1 pedicles and left T1 transverse process. 2. Abnormal soft tissue edema around the left T1-T2 intervertebral neural foramen more than left T2-T3 intervertebral neural foramen. This is highly suspicious for neoplastic metastatic infiltration and is presumably causing left brachial plexopathy. RECOMMENDATION: MRI of the brachial plexus with and without contrast will be very helpful for further evaluation. N.B. : The above Results were Read Back by Chris Waterman MD to Jinny Jovel NP, and understanding confirmed on 03/16/2022 09:04:24 (ET). Electronically Signed: Chris Waterman MD at 8:51 EST ,
== END | disposition home or self-care (01) ==
LOC: MRI 07:12
PROVIDERS: PCP Internal Medicine; Referring Provider Internal Medicine; Visit Provider Internal Medicine
DX: M47.812 Spondylosis without myelopathy or radiculopathy, cervical region (principal); M50.30 Other cervical disc degeneration, unspecified cervical region; M79.89 Other specified soft tissue disorders
CPT/HCPCS: 72141

== ENCOUNTER → 2022-03-25 | Outpatient (CLI) | payer MEDICARE, OTHER, SELFPAY ==
--- NOTE | 2022-03-25 10:10 | BI_ITS ---
MAMMOGRAPHY - BILATERAL SCREENING REASON FOR EXAM: Female, 76 years old. Routine annual screening examination. PERTINENT HISTORY: Non-contributory. TECHNIQUE: Digital bilateral breast concepcion (3D mammographic acquisition) in the CC and MLO projections. 2-D mediolateral oblique (MLO) and craniocaudad (CC) views of both breasts were obtained. CAD: Full Field Digital Mammography with Computer Added Detection was performed. COMPARISON: Comparison is made with prior study dated 02/28/2021 and 12/03/2021. FINDINGS: Breast Composition: There are scattered areas of fibroglandular density. There are no dominant masses or suspicious calcifications. Stable small benign-appearing bilateral axillary lymph nodes. No other significant abnormalities are identified. There has been no significant change since the prior study. BI/SCRN MAMM (CAD)W/CONCEPCION BILAT IMPRESSION: Stable bilateral screening mammogram. Yearly follow-up mammogram recommended. (A) ASSESSMENT CATEGORY: BIRADS Category 2: Benign. A letter regarding these results will be sent to the patient by the facility within 30 days. Approximately 10% of breast cancers are not detected by mammography. A normal mammogram should not delay biopsy of a clinically suspicious abnormality. [id number] Electronically Signed: Jairo Welch MD at 12:22 EST ,
--- NOTE | 2022-03-25 10:25 | BD_ITS ---
STUDY: DUAL ENERGY X-RAY ABSORPTIOMETRY / DXA REASON FOR EXAM: Female, 76 years old. [id number] TECHNIQUE: Bone Mineral Density (BMD) measurements of lumbar spine and bilateral hips were obtained. COMPARISON: Comparison is made with prior study dated 01/03/2020. FINDINGS: Lumbar Spine (L1-L4): g/cm2 (1.211) / T-score (1.5) / Z-score (4.0) Findings are suggestive of normal bone density with a low fracture risk. Left Femur Total: g/cm2 (1.017) / T-score (0.6) / Z-score (2.5) Left Femoral Neck: g/cm2 (0.729) / T-score (-1.1) / Z-score (1.1) Right Femur Total: g/cm2 (1.003) / T-score (0.5) / Z-score (2.4) Right Femoral Neck: g/cm2 (0.687) / T-score (-1.5) / Z-score (0.7) The T-Scores on the most recent prior examination were: Lumbar Spine (L1-L4): There has been worsening of bone density since the previous examination. Left Femur Total: which represents a worsening of 3.4%. Right Femur Total: which represents an improvement of 3.9%. BD/Dexa Bone Density Study IMPRESSION: The patient is considered osteopenic as outlined below according to World Randy Organization (WHO) criteria with a low fracture risk. There has been worsening of bone density since the previous examination. Reference Information: The T-score is the number of standard deviations above or below the standard which is normal for young adults at their peak bone mineral density. The World Health Organization (WHO) interprets the T-scores as follows: Above -1 Normal bone density Between -1 and -2.5 Osteopenia Equal to / or below -2.5 Osteoporosis As a practical clinical guideline, osteopenia may be graded as follows: Mild -1 through -1.5 Moderate -1.6 through -2.0 Severe -2.1 through -2.4 The Z-score is the number of standard deviations above or below age-matched controls. A Z-score of less than -1.5 would be considered abnormal. References: 1. NIH Osteoporosis and Related Bone Diseases www osteo.org 2. International Society for Clinical Densitometry www iscd.org 3. National Osteoporosis Foundation www nof.org Electronically Signed: Jairo Welch MD at 13:02 EST ,
== END | disposition home or self-care (01) ==
PROVIDERS: PCP Internal Medicine; Visit Provider Internal Medicine
DX: Z12.31 Encounter for screening mammogram for malignant neoplasm of breast (principal); Z78.0 Asymptomatic menopausal state
CPT/HCPCS: 77063; 77067; 77080

== ENCOUNTER → 2022-03-31 | Outpatient (CLI) | payer MEDICARE, OTHER, SELFPAY ==
--- NOTE | 2022-03-31 08:30 | PET_ITS ---
EXAMINATION: FDG PET/CT ? INDICATIONS: 76-year-old female with suspected osseous skeletal metastatic disease. ? COMPARISON EXAMINATION: MRI of the cervical spine 03/16/2022 report ? INDEX LESION SIZE SUV INTERPRETATION Pancreatic tail 23.1 mm 4.2 Fulfills quantitative criteria for viable neoplasm ? Right mid pelvic mesentery anteriorly nodular density 14.3 mm largest 4.9 max Fulfills quantitative criteria for viable neoplasm ? 7th cervical, 1st and 2nd thoracic vertebra ? 4.3 max Quantitative criteria for viable neoplasm are fulfilled ? Left and right lobe hepatic parenchyma ? 2.8 max Ratio <2.0 Correlation with Magnetic Resonance Imaging may be of benefit ? TECHNIQUE: Following the intravenous administration of 13.09 mCi of F-18 deoxyglucose via the right hand, multiplanar image acquisitions of the neck, chest, abdomen and pelvis to the level of the midthigh, lower extremities to the level of the bilateral forefoot obtained at one-hour post radiopharmaceutical administration contemporaneously interpreted with MRI of the cervical spine 03/16/2022 report reveal: ? SERUM GLUCOSE LEVEL:? 145 mg/dL? HEIGHT:?? 62 inches WEIGHT:?? 180 pounds ? FINDINGS: ? HEAD/NECK:? There is no evidence of abnormal increased glucose metabolism in the pharyngeal mucosal space, parapharyngeal space, oropharynx, bilateral-lateral and anterior neck, hypopharynx and distribution of the larynx. ? The visualized portion of the cerebral cortical-subcortical structures demonstrate symmetric and preserved glucose metabolism. ? CHEST:? There is no quantitative scintigraphic evidence of abnormal increased glucose metabolism within the context of the bilateral hemithorax pulmonary parenchyma, right and left hemithorax at the pleural interface, mediastinal structures, and left-right thoracic perihilum. Prominent uptake is noted in the descending thoracic aorta commensurate with activated leukocytes associated with atherosclerotic plaque formation. ? CT of the chest demonstrates the following anatomic characteristics: A noncalcified parenchymal density noted in the left mid lung field just anterior to the fissure (left upper lobe) is nonglucose avid. Atherosclerotic calcification is defined in the thoracic aorta without evidence of dilatation, aneurysm formation. Coronary arterial calcification is observed. Right-left axillary soft tissue is ametabolic. Scattered mediastinal soft tissue densities reveal no evidence of increased glucose metabolism. ? ABDOMEN/PELVIS:? Several foci of increased tracer uptake are noted throughout the left and right lobes of the hepatic parenchyma (2.6) with a calculated maximum standard uptake value of 2.8 and lesion:liver ratio of <2.0. Facilitated FDG uptake is noted in the right upper pelvic mesentery anteriorly corresponding to a nodular density with a calculated standard uptake value of 4.9. The maximal axial diameter of the metabolic, morphologic abnormality is 14.3 mm. Increased radiopharmaceutical concentration is noted in the pancreatic tail corresponding to apparent mass formation generating a calculated standard uptake value of 4.2. The maximal axial diameter of the metabolic, morphologic abnormality is 23.1 mm AP.? Normal physiologic distribution of the radiopharmaceutical is identified in the splenic parenchyma, both renal units, urinary bladder, and diffusely apparent in the visualized intestinal tract. ? CT of the abdomen and pelvis is remarkable for the following: The uterus is surgically absent. Right-left subcentimeter inguinal soft tissue densities are nonglucose avid. Atherosclerotic calcification is defined in the abdominal aorta without evidence of dilatation, aneurysm formation. Pelvic arterial calcification is observed. Calcified granuloma formation is noted within the splenic parenchyma. The gallbladder appears surgically absent. ? SKELETAL:? Facilitated radiopharmaceutical concentration is defined in the 7th cervical and 1st and 2nd thoracic vertebra. Uptake involves the vertebral body of the 7th cervical, 1st and 2nd thoracic vertebra, as well as the left transverse process of the 1st thoracic vertebra. The calculated maximum standard uptake value is 4.3. Quantitative criteria for viable neoplasm are fulfilled. ? PET/PET/CT Tumor WB Initial IMPRESSION: 1. ABNORMAL EXAMINATION INDICATIVE OF MALIGNANT-VIABLE NEOPLASM. 2. The increased radiopharmaceutical concentration defined in the pancreatic tail fulfills quantitative criteria for viable neoplasm with single point technique. 3. The nodular density defined in the right mid anterior pelvic mesentery fulfills quantitative criteria for viable neoplasia. 4. Accentuated tracer uptake manifest in the 7th cervical and 1st and 2nd thoracic vertebra fulfill quantitative criteria for viable osseous neoplasia (Kati, et al, Clinical Nuclear Medicine, 29:161, 2004). 5. Enhanced tracer uptake manifest in the left and right lobes of hepatic parenchyma do not fulfill quantitative criteria for viable neoplasm. Correlation with magnetic resonance Imaging may be of benefit. Electronic Signature Durga Hsieh D.O. Accurate Quantification of SUVs for this report are calculated using the exclusive [employer]. ([place].S. Patent No. [id number] B2 US [phone] [place] patent [phone]). Standardization and correction of the FDG SUV metric via [employer] technology allow for vendor non-specific objective quantitative examination comparison and optimization of the sensitivity and specificity of the FDG PET-CT examination. . Electronically Signed: Durga Hsieh, at 8:35 EST ,
== END | disposition home or self-care (01) ==
LOC: ONC 07:53
PROVIDERS: PCP Internal Medicine; Referring Provider Internal Medicine; Visit Provider Internal Medicine
DX: Z90.710 Acquired absence of both cervix and uterus (principal); I70.0 Atherosclerosis of aorta; I25.10 Atherosclerotic heart disease of native coronary artery without angina pectoris; K76.9 Liver disease, unspecified; Z90.49 Acquired absence of other specified parts of digestive tract; D48.0 Neoplasm of uncertain behavior of bone and articular cartilage
CPT/HCPCS: 78816; A9552

== ENCOUNTER 2022-04-11 10:16 | Inpatient (IN) | payer MEDICARE, OTHER, SELFPAY ==
[2022-04-11] VITALS (7 sets, daily range): BP systolic 103–151; BP diastolic 44–57; PULSE 78–82; RESP 14–23; TEMP 36.5–36.6; O2SAT 94–98; BMI 33.3; BMI 33.8
--- NOTE | 2022-04-11 10:37 | ED.VIS.DYS ---
HPI History of Present Illness Chief Complaint: Shortness of Breath Informant: patient and family Onset/Context/Timing Onset: Weeks (2) Context: gradual Timing: Continuous Quality: Positive for Dyspnea on exertion and Orthopnea Worsened by: Exertion and Lying flat Relieved by: Rest Associated Symptoms Negative for cough, rhinorrhea, ear pain, fever, sore throat, chills or sweats Chest Pain: Positive for Intermittent and Pressure (Heaviness) Narrative Narrative: Patient presents with shortness of breath that has been getting progressively worse over the past 2 weeks. Patient states her breathing is worse whenever she lays flat. Patient also states she has been having some dyspnea with exertion. Patient states it has been constant and gradually getting worse. Patient admits to some heaviness in the substernal area. Patient denies any cough. Patient denies any sore throat or rhinorrhea. Patient denies any fevers or chills. Patient has a DVT and is on Eliquis for this. Patient and her daughter are concerned this could be a pulmonary embolism. PE Risk Factors: Positive for Cancer and Prior DVT or PE; Negative for OCP + Smoking + > 35, Recent immobilization, Recent surgery or Recent travel [facility] Medical History Actinic keratoses Arthralgia of multiple sites Arthritis Back pain Benign essential hypertension Cataract Chest tightness Controlled diabetes mellitus DM (diabetes mellitus), type 2, uncontrolled, with renal complications H/o nasal reconstruction Hearing loss History of fall within past 90 days History of frequent headaches Hyperlipidemia, unspecified Irritable bowel syndrome with diarrhea Knee pain, acute Meniere disease Muscle spasm of back Nocturia Palpitations QIAN Rib pain on right side Sinus drainage Sinusitis, bacterial Stress reaction, emotional Type II diabetes mellitus, well controlled Uncontrolled type 2 diabetes mellitus Urinary frequency Vaginal atrophy Vitamin D deficiency Home Medications atorvastatin 10 mg tablet 10 mg PO DAILY cholesterol 09/23/16 [History Last Taken 09/22/16] calcium carbonate 600 mg-vitamin D3 20 mcg (800 unit) tablet 2 ea PO DAILY supplement 09/23/16 [History Last Taken 09/23/16 07:00] metformin 1,000 mg tablet 1,000 mg PO BID diabetes 09/23/16 [History Last Taken 09/23/16 07:00] Cholecalciferol (Vitamin D3) [Vitamin D3] 5,000 unit PO DAILY 07/11/19 [History Last Taken Unknown] ascorbic acid (vitamin C) 250 mg tablet 250 mg PO DAILY 07/11/19 [History Last Taken Unknown] insulin degludec 100 unit/mL (3 mL) subcutaneous pen 15 units SQ QHS 07/11/19 [History Last Taken Unknown] carvedilol 6.25 mg tablet 12.5 mg PO BID blood pressure 02/01/20 [History Last Taken Unknown] estradiol 0.01% (0.1 mg/gram) vaginal cream (Estrace) 1 applic vaginal Q3D 02/01/20 [History Last Taken Unknown] losartan 50 mg tablet 100 mg PO DAILY 02/01/20 [History Last Taken Unknown] cranberry 400 mg capsule 400 mg PO DAILY 01/19/21 [History Last Taken Unknown] apixaban 5 mg tablet (Eliquis) 5 mg PO BID #74 tabs 02/21/22 [Rx Last Taken Unknown] apixaban 5 mg tablet (Eliquis) 5 mg PO BID #120 tabs 02/25/22 [Rx Last Taken Unknown] dulaglutide 1.5 mg/0.5 mL subcutaneous pen injector (Trulicity) 1.5 mg subcut QWEEK 02/25/22 [History Last Taken Unknown] multivitamin (Multiple Vitamins tablet) 2 tab PO DAILY 02/25/22 [History Last Taken Unknown] Allergy/AdvReac Type Severity Reaction Status Date / Time ciprofloxacin [From Cipro] Allergy Hives Verified 04/11/22 10:17 Family History Brother Diabetes Alcohol abuse Mother Brain cancer Lung cancer Ovarian cancer Father Brain tumor Blood disorder Sister Bipolar disorder Surgical History H/O section H/O total knee replacement H/O tubal ligation H/O: hysterectomy History of carpal tunnel surgery History of cholecystectomy History of intraocular lens implant Social History household members: spouse Smoking Status: Never smoker alcohol intake: current alcohol intake frequency: a few times a week substance use type: does not use what type of physical activity do you participate in: none ROS ROS ED Constitutional Constitutional ED: Denies chills or fever(s) Eyes Eyes: Denies blurry vision or change in vision ENT ENT ED: Denies rhinorrhea or sore throat Cardiovascular Cardiovascular: Reports chest pain; Denies palpitations Respiratory/Chest Respiratory/Chest: Reports dyspnea; Denies cough Gastrointestinal Gastrointestinal: Denies nausea or vomiting Genitourinary Genitourinary ED: Denies dysuria or hematuria Musculoskeletal Musculoskeletal: Reports back pain and neck pain Integumentary Denies abscess or rash Neurologic Neurologic: Denies headache(s) or weakness Allergic/Immunologic Allergic/Immunologic ED: Denies mouth swelling or urticaria EXAM Physical Exam Const Vital Signs: 04/11/22 10:18 04/11/22 10:45 04/11/22 10:54 Temperature 98 F Temperature Source Temporal Pulse Rate 81 Respiratory Rate 14 Respiratory Effort Short of Breath Respiratory Depth Normal Respiratory Pattern Normal Blood Pressure 103/57 L Blood Pressure Mean 72 Pulse Ox 97 Oxygen Delivery Method Room Air Room Air Room Air 04/11/22 12:28 Temperature Temperature Source Pulse Rate 78 Respiratory Rate 18 Respiratory Effort Respiratory Depth Respiratory Pattern Blood Pressure 119/50 L Blood Pressure Mean 73 Pulse Ox 95 Oxygen Delivery Method Room Air Positive well nourished, well developed and obese General Appearance ED: well developed and NAD Nutritional Appearance: obese HEENT Reports moist mucous membranes Neck supple and no JVD Resp normal respiratory effort Auscultation: diminished lung sounds bilateral lower Cardio regular rate and regular rhythm GI normal to inspection, nondistended, normoactive bowel sounds and non-tender Palpation: soft Extremity normal to inspection General Extremety ED: Negative for edema or tenderness General Extremity: Negative for edema Neuro oriented x3, CN's II-XII intact bilaterally and no sensory deficits noted Sensorium / Orientation: alert Motor Exam: strength 5/5 throughout Psych mental status grossly normal Skin no rashes or lesions noted MDM MDM MDM Narrative Medical decision making narrative: Patient was given a dose of Tylenol here. Differential diagnosis includes pulmonary embolism, cardiac ischemia, cardiac dysrhythmia, pneumonia, and cancer. Will obtain EKG to assess for cardiac ischemia/dysrhythmia. Will obtain CBC to check for leukocytosis and anemia. Will obtain comprehensive metabolic profile to assess for electrolyte abnormality, renal function, liver function. Will obtain PT with INR and PTT to assess for coagulopathy. Will obtain a troponin to assess for cardiac ischemia. We will obtain a CTA of the chest to assess for pulmonary embolism and cancer. Lab Data Lab results narrative: CBC was reviewed and showed a mild leukocytosis of 14.1. Hemoglobin was 11.3 hematocrit 34.7. Platelets were slightly low at 122. PT was 19.8 and INR is 1.7. PTT was 35.2. Comprehensive metabolic profile was reviewed. Alkaline phosphatase was slightly elevated at 548 and AST was slightly elevated at 44. ALT was normal. Bilirubin was normal. BUN was slightly elevated at 28 and creatinine was 1.16. CO2 was slightly low at 18. Anion gap was normal. High-sensitivity troponin was reviewed and was slightly elevated at 343. Labs: Laboratory Results - last 24 hr 04/11/22 04/11/22 04/11/22 10:40 10:40 10:40 WBC 14.1 H RBC 3.74 L Hgb 11.3 L Hct 34.7 L MCV 92.8 MCH 30.2 MCHC 32.6 RDW Std Deviation 49.1 H RDW Coeff of Rojelio 14.5 Plt Count 122 L MPV 11.2 Immature Gran % (Auto) 1.000 H Neut % (Auto) 73.0 H Lymph % (Auto) 14.9 L Freestone % (Auto) 8.0 Eos % (Auto) 2.6 Baso % (Auto) 0.5 Absolute Neuts (auto) 10.3 H Absolute Lymphs (auto) 2.10 Nucleated RBC % 0 PT 19.8 H INR 1.7 APTT 35.2 Sodium 139 Potassium 4.9 Chloride 112 H Carbon Dioxide 18.0 L Anion Gap 9 BUN 28 H Creatinine 1.16 H Estim Creat Clear Calc 32.12 Est GFR (MDRD) Af Amer 58 L Est GFR (MDRD) Non-Af 48 L BUN/Creatinine Ratio 24.1 H Glucose 143 H Calcium 9.3 Total Bilirubin 0.80 AST 44 H ALT 56 Alkaline Phosphatase 548 H Troponin I High Sens 343 H* Total Protein 7.0 Albumin 3.3 Globulin 3.7 Albumin/Globulin Ratio 0.9 Radiography Diagnostic Testing: Clinical Impression(s) from Imaging Studies Chest CTA 04/11/22 10:44 IMPRESSION: Small segmental and subsegmental right lower pulmonary emboli. Mild pleural effusions with mild pulmonary edema. Bilateral pulmonary nodules and mild mediastinal lymphadenopathy, suspicious for metastases with the finding of a pancreatic tail mass. Trace perisplenic free fluid again seen. Sclerotic lesions in the cervicothoracic spine, suspicious for osteoblastic metastases. Electronically Signed: Amarilis Tejeda MD at 11:57 EST , ADDENDUM: 04/11/22 1209 IMPRESSION: Small segmental and subsegmental right lower pulmonary emboli. Mild pleural effusions with mild pulmonary edema. Bilateral pulmonary nodules and mild mediastinal lymphadenopathy, suspicious for metastases with the finding of a pancreatic tail mass. Trace perisplenic free fluid again seen. Sclerotic lesions in the cervicothoracic spine, suspicious for osteoblastic metastases. N.B. : Dr Maykel Rivera MD, confirmed on 04/11/2022 12:02:51 (ET) that the healthcare facility has received the radiology report. Electronically Signed: Amarilis Tejeda MD at 11:57 EST , CTA of the chest was obtained. On my independent review, there are small segmental and subsegmental right lower lobe pulmonary emboli. There are mild pleural effusions. Radiologist also interpreted the CT scan and noted mild pulmonary edema with bilateral pulmonary nodules and mediastinal lymphadenopathy suspicious for metastases. There is also sclerotic lesions noted in the cervical thoracic spine suspicious for osteoblastic metastasis. Treatment and Re-Evaluation Narrative: Patient is feeling better on reevaluation. Patient was advised of her findings. Patient was given a heparin bolus and started on heparin drip given that she has pulmonary emboli it while she was already on Eliquis. Case was discussed with the hospitalist. He will admit patient to PCU. Patient understood and was agreeable with the plan. All questions were answered. Discharge Plan Triage Chief Complaint: Shortness of Breath ED Provider: Maykel Rivera Dx/Rx/DC Orders Clinical Impression: Pulmonary embolism, Hypertension, Elevated troponin, Morbid obesity Prescriptions: No Action estradiol [Estrace] 0.01 % (0.1 mg/gram) cream 1 applic VAGINAL Q3D Rx Instructions: twice weekly Eliquis 5 mg tablet 5 mg PO BID Qty: 120 0RF atorvastatin 10 MG tablet 10 mg PO DAILY metformin 1,000 MG tablet 1,000 mg PO BID calcium carbonate-vitamin D3 1 EACH tablet 2 ea PO DAILY carvedilol 6.25 mg tablet 12.5 mg PO BID ascorbic acid (vitamin C) 250 MG tablet 250 mg PO DAILY insulin degludec 100 unit/mL (3 mL) insulin pen 15 units SQ QHS Cholecalciferol (Vitamin D3) [Vitamin D3] 5,000 UNIT capsule 5,000 unit PO DAILY losartan 50 mg tablet 100 mg PO DAILY cranberry 400 mg Capsule 400 mg PO DAILY Eliquis 5 mg tablet 5 mg PO BID Qty: 74 0RF Rx Instructions: 10 mg twice a day for the first week. Then 5 mg twice a day. Primary Care Provider: Indu Soria Referrals: Indu Soria DO [Primary Care Provider] - Disposition Disposition: Acute Care Hospital [facility]
--- NOTE | 2022-04-11 10:44 | CT_ITS ---
ACR Level 3 findings have been noted. An addendum which confirms receipt of the report will follow. HISTORY: SOB x 1 week, blood clot in arm in February, on Eliquis. TECHNIQUE: CT angiogram of the chest was performed after the intravenous administration of 75 mL Isovue 370. Post-processing of the angiographic images was performed with multiplanar reformation and 3D reconstruction. Individualized dose optimization techniques were used for this CT. 1146 images. COMPARISON: PET-CT 03/31/2022. FINDINGS: CENTRAL AIRWAYS: Patent. LUNGS: Mild septal thickening with groundglass and nodular opacities. 2 mm noncalcified right upper lobe nodule on image 82/216. Spiculated 5 mm right lower lobe nodule on image 144. 4 mm left upper lobe nodule on image 68. 2 mm left upper lobe nodule on image 96. PLEURA: Mild bilateral pleural effusions. HEART/PERICARDIUM: Heart within normal limits in size. No right heart strain with the RV: LV ratio less than 1. No pericardial effusion. PULMONARY ARTERIES: Segmental and subsegmental right lower lobe filling defects. AORTA/VESSELS: No thoracic aortic aneurysm or dissection flap. Atherosclerosis noted. MEDIASTINUM/ALISSA: 1 x 1.5 cm precarinal lymph node. OSSEOUS STRUCTURES: Degenerative change. Sclerotic lesions in the lower cervical and upper thoracic spine. UPPER ABDOMEN: Incompletely imaged pancreatic tail mass. Trace perisplenic free fluid. CT/CTA Chest W/WO Contrast IMPRESSION: Small segmental and subsegmental right lower pulmonary emboli. Mild pleural effusions with mild pulmonary edema. Bilateral pulmonary nodules and mild mediastinal lymphadenopathy, suspicious for metastases with the finding of a pancreatic tail mass. Trace perisplenic free fluid again seen. Sclerotic lesions in the cervicothoracic spine, suspicious for osteoblastic metastases. Electronically Signed: Amarilis Tejeda MD at 11:57 EST ,
--- NOTE | 2022-04-11 10:44 | EKG12_ITS ---
Test Reason : SOB Blood Pressure : / mmHG Vent. Rate : 080 BPM Atrial Rate : 080 BPM P-R Int : 156 ms QRS Dur : 088 ms QT Int : 372 ms P-R-T Axes : 042 -26 038 degrees QTc Int : 429 ms Normal sinus rhythm Septal infarct , age undetermined Abnormal ECG Confirmed by AUNG GARCIA, REBECCA ([id number]), market editor DAVID CRAIN ([id number]) on 04/12/2022 10:52:24 AM Referred By: Confirmed By:REBECCA HORAN MD
[2022-04-11 10:57] LABS: Absolute Neutrophil Count 10.3 X10^3/uL (2.0-7.7); Basophil# 0.07 X10^3/uL; Basophil% 0.5 % (0-1); Eosinophil# 0.37 X10^3/uL; Eosinophils% 2.6 % (0-5); Hematocrit 34.7 % (37-47); Hemoglobin 11.3 g/dL (12.0-15.0); Lymphocyte % 14.9 % (19-41); Mean Corp Hgb Conc 32.6 g/dL (32-36); Mean Corpuscular Hgb 30.2 pg (27.0-32.0); Mean Corpuscular Volume 92.8 fL (81-99); Mean Platelet Vol. 11.2 fl (6.2-12.0); Monocyte# 1.12 X10^3/uL; NRBC Flagged by Analyzer 0 % (0-5); Neutrophil # 10.25 X10^3/uL (2.7-7.7); Platelet Count 122 K/mm3 (150-450); RBC Distribution Width CV 14.5 % (11.6-14.6); RBC Distribution Width SD 49.1 fl (35.1-43.9); Red Blood Count 3.74 M/mm3 (4.2-5.4); White Blood Count 14.1 K/mm3 (4.4-11.0)
[2022-04-11] MEDS: Aspirin 81 MG TAB.CHEW 324 MG PO (11:00)
[2022-04-11 11:06] LABS: International Normalized Ratio 1.7; Prothrombin Time (Protime)PT. 19.8 SECONDS (11.7-14.9)
[2022-04-11 11:09] LABS: Partial Thromboplast Time 35.2 Seconds (24.1-36.2)
[2022-04-11 11:21] LABS: ALB/GLOB Ratio 0.9 RATIO (0.9-2.4); AST(SGOT) 44 U/L (15-37); Alanine Aminotransfer ALT/SGPT 56 U/L (13-56); Albumin, Serum 3.3 g/dL (3.2-5.0); Alkaline Phosphatase 548 U/L (45-117); Anion Gap 9 (5-15); BUN 28 mg/dL (7-18); BUN/Creat Ratio 24.1 RATIO (10-20); Calcium,Total 9.3 mg/dL (8.5-10.1); Chloride 112 mmol/L (98-107); Creatinine, Serum 1.16 mg/dL (0.55-1.02); EST Glomerular Filtration Rate 48 mL/min (>60); Est Glom Filt Rate - Afr Amer 58 mL/min (>60); Estimated Creatinine Clearance 32.12 ml/min; Globulin 3.7 g/dL (2.2-4.2); Glucose 143 mg/dL (74-106); Potassium 4.9 mmol/L (3.5-5.1); Sodium Level 139 mmol/L (136-145); Troponin-I HS 343 pg/mL (3.0-54.0)
[2022-04-11 13:49] LABS: International Normalized Ratio 1.7; Prothrombin Time (Protime)PT. 19.8 SECONDS (11.7-14.9)
[2022-04-11 13:50] LABS: Partial Thromboplast Time 34.4 Seconds (24.1-36.2)
[2022-04-11] MEDS: Heparin Injection (Vial) 5,000 UNIT/ML VIAL 6000 UNIT IV (13:53)
[2022-04-11] MEDS: HEPARIN/D5w 25,000 UNITS 25,000 UNITS/250 ML IV.SOLN. 12 UNITS CONT INF (13:54)
[2022-04-11 13:57] LABS: Troponin-I HS 365 pg/mL (3.0-54.0)
--- NOTE | 2022-04-11 14:55 | PCM.HP.STD ---
HPI - General General Date of Admission: 04/11/22 HPI Narrative LIBERTAD ESTRADA, is a 76 F who presents to the hospital with shortness of breath and chest pressure has been going on for several weeks but it got worse today and yesterday. In the ER she was found to have an elevated troponin but is not endorsing any significant chest pain. A CTA of the chest was done which just shows segmental and subsegmental PEs. Unfortunately this is occurring while on Eliquis that she has been taking for the last several weeks for a left upper extremity DVT. 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 EKG was nonischemic of note she is afebrile with a leukocytosis, this could be reactive to cancer. [facility]LY [facility] Medical History Actinic keratoses Arthralgia of multiple sites Arthritis Back pain Benign essential hypertension Cataract Chest tightness Controlled diabetes mellitus DM (diabetes mellitus), type 2, uncontrolled, with renal complications H/o nasal reconstruction Hearing loss History of fall within past 90 days History of frequent headaches Hyperlipidemia, unspecified Irritable bowel syndrome with diarrhea Knee pain, acute Meniere disease Muscle spasm of back Nocturia Palpitations QIAN Rib pain on right side Sinus drainage Sinusitis, bacterial Stress reaction, emotional Type II diabetes mellitus, well controlled Uncontrolled type 2 diabetes mellitus Urinary frequency Vaginal atrophy Vitamin D deficiency Home Medications atorvastatin 10 mg tablet 10 mg PO DAILY cholesterol 09/23/16 [History Last Taken 09/22/16] calcium carbonate 600 mg-vitamin D3 20 mcg (800 unit) tablet 2 ea PO DAILY supplement 09/23/16 [History Last Taken 09/23/16 07:00] metformin 1,000 mg tablet 1,000 mg PO BID diabetes 09/23/16 [History Last Taken 09/23/16 07:00] Cholecalciferol (Vitamin D3) [Vitamin D3] 5,000 unit PO DAILY 07/11/19 [History Last Taken Unknown] ascorbic acid (vitamin C) 250 mg tablet 250 mg PO DAILY 07/11/19 [History Last Taken Unknown] insulin degludec 100 unit/mL (3 mL) subcutaneous pen 15 units SQ QHS 07/11/19 [History Last Taken Unknown] carvedilol 6.25 mg tablet 12.5 mg PO BID blood pressure 02/01/20 [History Last Taken Unknown] estradiol 0.01% (0.1 mg/gram) vaginal cream (Estrace) 1 applic vaginal Q3D 02/01/20 [History Last Taken Unknown] losartan 50 mg tablet 100 mg PO DAILY 02/01/20 [History Last Taken Unknown] cranberry 400 mg capsule 400 mg PO DAILY 01/19/21 [History Last Taken Unknown] apixaban 5 mg tablet (Eliquis) 5 mg PO BID #74 tabs 02/21/22 [Rx Last Taken Unknown] apixaban 5 mg tablet (Eliquis) 5 mg PO BID #120 tabs 02/25/22 [Rx Last Taken Unknown] dulaglutide 1.5 mg/0.5 mL subcutaneous pen injector (Trulicity) 1.5 mg subcut QWEEK 02/25/22 [History Last Taken Unknown] multivitamin (Multiple Vitamins tablet) 2 tab PO DAILY 02/25/22 [History Last Taken Unknown] Allergy/AdvReac Type Severity Reaction Status Date / Time ciprofloxacin [From Cipro] Allergy Hives Verified 04/11/22 10:17 Family History Brother Diabetes Alcohol abuse Mother Brain cancer Lung cancer Ovarian cancer Father Brain tumor Blood disorder Sister Bipolar disorder Surgical History H/O section H/O total knee replacement H/O tubal ligation H/O: hysterectomy History of carpal tunnel surgery History of cholecystectomy History of intraocular lens implant Social History household members: spouse Smoking Status: Never smoker alcohol intake: current alcohol intake frequency: a few times a week substance use type: does not use what type of physical activity do you participate in: none ROS Constitutional Constitutional: Denies chills, fatigue, fever(s) or malaise Eyes Eyes: Denies blurry vision ENT HEENT: Denies headache(s) or nasal discharge Cardiovascular Cardiovascular: Reports chest pain; Denies dyspnea on exertion or syncope Respiratory/Chest Respiratory/Chest: Reports shortness of breath at rest; Denies cough or shortness of breath with exertion Gastrointestinal Gastrointestinal: Denies constipation, diarrhea, nausea or vomiting Genitourinary Genitourinary: Denies dysuria Musculoskeletal Musculoskeletal: Reports back pain Neurologic Neurologic: Denies focal weakness, numbness or tremor(s) Psychiatric Psychiatric: Denies anxiety or depression Vital Signs Vital Signs Vital Signs: 04/11/22 10:18 04/11/22 10:45 04/11/22 10:54 Temperature 98 F Temperature Source Temporal Pulse Rate 81 Respiratory Rate 14 Respiratory Effort Short of Breath Respiratory Depth Normal Respiratory Pattern Normal Blood Pressure 103/57 L Blood Pressure Mean 72 Pulse Ox 97 Oxygen Delivery Method Room Air Room Air Room Air 04/11/22 12:28 04/11/22 13:57 04/11/22 14:38 Temperature 98 F Temperature Source Oral Pulse Rate 78 82 81 Respiratory Rate 18 23 H 21 H Respiratory Effort Respiratory Depth Respiratory Pattern Blood Pressure 119/50 L 149/51 H 151/54 H Blood Pressure Mean 73 83 86 Pulse Ox 95 94 94 Oxygen Delivery Method Room Air Room Air Room Air Weight Weight: 182 lb 5.156 oz Body Mass Index (BMI) 33.3 Physical Exam Narrative General: Alert, Oriented x3, Cooperative, No apparent distress HEENT: Atraumatic, PERRLA, EOMI, Normocephalic Oral: Moist Mucosa Neck: Supple, No JVD Lungs: Clear to auscultation, Normal air movement, No rhonchi, No wheeze, No rales Cardiovascular: Regular rate, Regular Rhythm, Normal S1, Normal S2, murmur Abdomen: Soft, Non Tender, Non-Distended, No Hepato-splenomegaly Extremities: No edema, Capillary Refill Less than 3 Seconds Skin: No rashes, No breakdown Musculoskeletal: No Tenderness to Palpation of Joints or Extremities Neurological: Cranial nerves II-XII grossly intact, Motor Exam 5/5 strength throughout, Sensory exam intact to light touch and pain Psych/Mental Status: Normal Affect, Appropriate Results Lab / Micro Data Result Diagrams: 04/11/22 10:40 04/11/22 10:40 Labs: Laboratory Results - last 24 hr 04/11/22 10:40: WBC 14.1 H, RBC 3.74 L, Hgb 11.3 L, Hct 34.7 L, MCV 92.8, MCH 30.2, MCHC 32.6, RDW Std Deviation 49.1 H, RDW Coeff of Rojelio 14.5, Plt Count 122 L, MPV 11.2, Immature Gran % (Auto) 1.000 H, Neut % (Auto) 73.0 H, Lymph % (Auto) 14.9 L, [place] % (Auto) 8.0, Eos % (Auto) 2.6, Baso % (Auto) 0.5, Absolute Neuts (auto) 10.3 H, Absolute Lymphs (auto) 2.10, Nucleated RBC % 0 04/11/22 10:40: Sodium 139, Potassium 4.9, Chloride 112 H, Carbon Dioxide 18.0 L, Anion Gap 9, BUN 28 H, Creatinine 1.16 H, Estim Creat Clear Calc 32.12, Est GFR (MDRD) Af Amer 58 L, Est GFR (MDRD) Non-Af 48 L, BUN/Creatinine Ratio 24.1 H, Glucose 143 H, Calcium 9.3, Total Bilirubin 0.80, AST 44 H, ALT 56, Alkaline Phosphatase 548 H, Troponin I High Sens 343 H*, Total Protein 7.0, Albumin 3.3, Globulin 3.7, Albumin/Globulin Ratio 0.9 04/11/22 10:40: PT 19.8 H, INR 1.7, APTT 35.2 04/11/22 13:32: PT 19.8 H, INR 1.7, APTT 34.4 04/11/22 13:32: Troponin I High Sens 365 H* Micro: Microbiology 04/11/22 11:00 Nasal Secretion SARS-CoV-2 & FLU Antigen (Rapid) - Final Radiology Impression Chest CTA 04/11/22 10:44 IMPRESSION: Small segmental and subsegmental right lower pulmonary emboli. Mild pleural effusions with mild pulmonary edema. Bilateral pulmonary nodules and mild mediastinal lymphadenopathy, suspicious for metastases with the finding of a pancreatic tail mass. Trace perisplenic free fluid again seen. Sclerotic lesions in the cervicothoracic spine, suspicious for osteoblastic metastases. Electronically Signed: Amarilis Tejeda MD at 11:57 EST Reading Location ID and State: [facility] / [place] Tel , Service support , ADDENDUM: 04/11/22 1209 IMPRESSION: Small segmental and subsegmental right lower pulmonary emboli. Mild pleural effusions with mild pulmonary edema. Bilateral pulmonary nodules and mild mediastinal lymphadenopathy, suspicious for metastases with the finding of a pancreatic tail mass. Trace perisplenic free fluid again seen. Sclerotic lesions in the cervicothoracic spine, suspicious for osteoblastic metastases. N.B. : Dr Maykel Rivera MD, confirmed on 04/11/2022 12:02:51 (ET) that the healthcare facility has received the radiology report. Electronically Signed: Amarilis Tejeda MD at 11:57 EST , Assessment & Plan Assessment/Plan (1) Pulmonary embolism: (2) Elevated troponin: PLAN: Plan 1. Elevated troponin due to either pulmonary embolism versus non-STEMI/HTN/HLD/pancreatic tail mass with recent upper extremity DVT ? Her elevated troponin is potentially due to her PEs so start her on a heparin drip and obtain an echo in the morning ? We will obtain serial troponins ? We will continue with her home blood pressure medications as well as her home Lipitor ? She has had Eliquis since the beginning of February when her upper extremity DVT was diagnosed it is possible at that time that she also had these PEs however given the pancreatic tail mass, I think it is better to assume that this is a Eliquis failure and transition her to subcutaneous Lovenox on discharge ? Continue with a heparin drip and will obtain an echo, she would also like to possibly have a biopsy done during this hospitalization ? 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 Had a 45-minute advance care planning discussion with her and her 2. DM2 ? Hold her formant but can continue with her long-acting insulin ? Accu-Cheks AC at bedtime ? Sign scale insulin ? We will adjust as necessary DVT: Heparin drip Charges/Coding Visit Charges Inpatient E&M: 12628 Init Hosp L2
--- NOTE | 2022-04-11 15:05 | ECHOD_ITS ---
Reason For Study: CHEST PAIN Procedure This was a 2D Doppler, Color Flow transthoracic echocardiogram. Exam performed portable in patient room. Left Ventricle Normal LV size. Left ventricular systolic function is normal. The estimated ejection fraction is 60 %. Stage 2 diastolic dysfunction. No regional wall motion abnormalities noted. Right Ventricle Normal RV size. Normal systolic function. Atria Normal left atrium. Normal right atrium. Mitral Valve There is mild mitral annular calcification. Bileaflet diffuse mitral valve thickening. Mild-Moderate (1-2+) eccentric mitral valve insufficiency. Tricuspid Valve Normal tricuspid valve. Moderate (2+) tricuspid valve insufficiency. Pulmonary artery systolic pressure is 77 mmHg. Moderate pulmonary hypertension. Aortic Valve Normal aortic valve. Trisinus/trileaflet aortic valve. Peak aortic valve gradient 38 mmHg. Mean aortic valve gradient 19 mmHg. Mild (1+) aortic valve insufficiency. Pulmonic Valve Normal pulmonic valve. Great Vessels Normal aortic root. The pulmonary artery is normal size. Normal inferior vena cava. Pericardium/Pleural No pericardial effusion. MMode/2D Measurements & Calculations Ao root diam: 3.5 cm LAV(MOD-bp): 50.6 ml LVAd ap4: 18.2 cm2 LAV(MOD-bp) Indexed: 27.6 ml/m2 LVLd ap4: 5.9 cm LAV(MOD-sp2): 75.8 ml EDV(MOD-sp4): 45.2 ml LAV(MOD-sp4): 24.6 ml EDV(sp4-el): 47.1 ml LVAs ap4: 11.7 cm2 LVLs ap4: 5.3 cm ESV(MOD-sp4): 23.4 ml ESV(sp4-el): 22.3 ml EF(MOD-sp4): 48.4 % EF(sp4-el): 52.8 % SV(MOD-sp4): 21.9 ml SV(sp4-el): 24.9 ml LA A4 area: 11.4 cm2 LA dimension(2D): 4.0 cm RA A4 area: 9.3 cm2 Time Measurements MV dec time: 0.19 sec Doppler Measurements & Calculations MV E max gustavo: 118.1 cm/sec Med Peak E' Gustavo: 9.1 cm/sec MV V2 max: 142.9 cm/sec MV A max gustavo: 83.5 cm/sec E/E' med: 12.9 MV max P.2 mmHg MV E/A: 1.4 MV V2 mean: 92.4 cm/sec MV mean P.8 mmHg MV V2 VTI: 40.1 cm MV dec slope: 671.2 cm/sec2 Ao V2 max: 305.9 cm/sec AI max gustavo: 427.0 cm/sec Ao max P.9 mmHg AI max P.9 mmHg Ao V2 mean: 201.9 cm/sec AI dec slope: 321.8 cm/sec2 Ao mean P.3 mmHg AI P1/2t: 388.6 msec Ao V2 VTI: 66.7 cm AV (velocity ratio): 0.35 LV V1 max: 102.6 cm/sec TR max gustavo: 428.8 cm/sec LV V1 max P.2 mmHg TR max P.5 mmHg LV V1 mean P.4 mmHg LV V1 mean: 73.4 cm/sec LV V1 VTI: 23.5 cm ECHO/Echo Complete Interpretation Summary Normal LV size. Left ventricular systolic function is normal. The estimated ejection fraction is 60 %. Mild-Moderate (1-2+) eccentric mitral valve insufficiency. Stage 2 diastolic dysfunction. Pulmonary artery systolic pressure is 77 mmHg. Moderate pulmonary hypertension. The previous the mitral regurgitation and tricuspid regurgitation are worse in the aortic valve is more thickened. Ordering Physician: Abebe Martinez Referring Physician: Indu Soria M.D. Performed By: Odette Cespedes RCS
[2022-04-11 17:15] LABS: Bedside Glucose 150 mg/dL (74-106)
[2022-04-11 18:13] LABS: Troponin-I HS 402 pg/mL (3.0-54.0)
[2022-04-11] MEDS: Morphine 2 MG/ML Syringe IV (19:25)
[2022-04-11] MEDS: 0.9% Saline Lock 10 ML Syringe IV (19:26)
[2022-04-11] MEDS: Carvedilol 12.5 MG Tablet PO (20:07)
[2022-04-11] MEDS: Insulin Glargine-YFGN 100 UNIT/ML Pen 15 UNIT SC (20:07)
[2022-04-11] MEDS: traZODone 50 MG Tablet PO (20:07)
[2022-04-11] MEDS: Atorvastatin Calcium 10 MG Tablet PO (20:07)
[2022-04-11 21:20] LABS: Bedside Glucose 149 mg/dL (74-106)
[2022-04-11 21:21] LABS: Partial Thromboplast Time 165.7 Seconds (24.1-36.2)
[2022-04-12] MEDS: Morphine 2 MG/ML Syringe IV (03:11)
[2022-04-12] MEDS: 0.9% Saline Lock 10 ML Syringe IV (03:12)
[2022-04-12 03:30] VITALS: BP 136/53; PULSE 77; RESP 16; TEMP 36.6; O2SAT 98
[2022-04-12 05:46] LABS: Absolute Lymphocyte Count 2.24 X10^3/uL (0.83-4.51); Basophil# 0.09 X10^3/uL; Basophil% 0.7 % (0-1); Eosinophil# 0.39 X10^3/uL; Lymphocyte # 2.24 X10^3/ul (0.83-4.51); Lymphocyte % 17.2 % (19-41); Mean Corp Hgb Conc 32.3 g/dL (32-36); Mean Corpuscular Hgb 30.1 pg (27.0-32.0); Mean Corpuscular Volume 93.4 fL (81-99); Mean Platelet Vol. 10.6 fl (6.2-12.0); Monocyte# 1.23 X10^3/uL; Monocyte% 9.5 % (0-10); NRBC Flagged by Analyzer 0 % (0-5); Neutrophil # 8.98 X10^3/uL (2.7-7.7); Neutrophil % 69.1 % (47-70); Platelet Count 131 K/mm3 (150-450); RBC Distribution Width CV 14.5 % (11.6-14.6); RBC Distribution Width SD 49.2 fl (35.1-43.9); Red Blood Count 3.32 M/mm3 (4.2-5.4)
[2022-04-12 05:57] LABS: Partial Thromboplast Time 71.2 Seconds (24.1-36.2)
[2022-04-12 06:12] LABS: Anion Gap 9 (5-15); BUN 24 mg/dL (7-18); Chloride 112 mmol/L (98-107); Creatinine, Serum 0.92 mg/dL (0.55-1.02); EST Glomerular Filtration Rate 63 mL/min (>60); Est Glom Filt Rate - Afr Amer 76 mL/min (>60); Glucose 130 mg/dL (74-106); Potassium 4.4 mmol/L (3.5-5.1); Sodium Level 139 mmol/L (136-145)
--- NOTE | 2022-04-12 08:05 | CT_ITS ---
STUDY: CT ABDOMEN AND PELVIS WITH CONTRAST REASON FOR EXAM: Female, 76 years old. Pancreatic mass. Pulmonary nodules. RADIATION DOSAGE (If Supplied By Facility): CTDIvol = ( 20.00 ) mGy, DLP = ( 1037.14 ) mGycm TECHNIQUE: Transaxial images were obtained from the dome of the diaphragm to the symphysis pubis without oral contrast. IV 100mL Isovue-370 was administered. Sagittal and coronal images were reconstructed. Individualized dose optimization techniques were used for this CT. COMPARISON: None. FINDINGS: Small bilateral pleural effusions with focal areas of confluence at the lung bases suggestive of atelectasis and/or infiltrates. Coronary artery calcification. Heterogeneous appearance of the liver parenchyma. There are multiple ill-defined areas throughout the liver. Metastatic deposits should be ruled out. The patient is status post cholecystectomy. Heterogeneous enhancement of the spleen. There is a 2.3 cm x 2.6 cm hypodense mass in the tail portion of the pancreas. This abuts the splenic hilum. Normal bilateral adrenal glands. Normal right kidney. Normal left kidney. Normal visualized stomach. Normal small intestine. Large amount of fecal material is seen in the colon. The appendix is visualized and appears normal. There is diffuse atherosclerotic calcification of the abdominal aorta and its major visceral branches, without a demonstrated aneurysm. Normal inferior vena cava. There is borderline retroperitoneal lymphadenopathy with enlarged nodes no greater than 10mm in the short axis diameter. Normal urinary bladder. There is absence of the uterus consistent with a prior hysterectomy. Normal abdominal wall. There are diffuse degenerative changes of the visualized lumbar spine. CT/Abdomen/Pelvis WITH Contrast IMPRESSION: Small bilateral pleural effusions with bibasilar atelectasis and/or early infiltrates. Heterogeneous appearance of the liver parenchyma suggestive of metastatic disease. Heterogeneous enhancement of the spleen. 2.3 cm x 2.6 cm hypodense mass in the tail of the pancreas. Electronically Signed: Jairo Welch MD at 12:17 EST ,
[2022-04-12 08:12] VITALS: BP 148/53; PULSE 79; RESP 14; TEMP 36.7; O2SAT 98
[2022-04-12] MEDS: Carvedilol 12.5 MG Tablet PO ×2 (09:53→21:41)
[2022-04-12] MEDS: Losartan Potassium 100 MG Tablet PO (09:53)
--- NOTE | 2022-04-12 11:06 | CASEMGMT ---
RN CM NOTE: RN CM to room to complete initial assessment. Pt out of room @ this time for CT. Kasey BSN RN CM
--- NOTE | 2022-04-12 11:45 | CASEMGMT ---
RN CM CARTRIDGE FILLER CM to room to meet with patient for initial transition planning/care coordination assessment. RN LORAINE introduced self and role at [facility]. Pt voices understanding and consents to assessment at this time. Pt sitting up in chair in room in no distress at this time. ,Elan, dtr, June, and friend, Christianne, all at bedside and pt agreeable to them being present during assessment. Pt is A/O at this time and answers all questions appropriately. Care providers, pharmacy, and demographics verified/updated at this time. PCP: Dr Soria Specialists:Dr Dinh-urology Preferred Pharmacy: [facility], [place] Insurance: Astrid Prescription Benefit: Yes. [facility] [employer] Living Will/HPOA: Has both LW and HCPOA, who is her , Elan LNOK: , Elan. Dtr's June and Berenice Living Arrangements: Lives w/her in one-story home w/3 steps to enter. Indep w/ADL's, manages her own medications, and does home mgmt tasks. Transportation: Pt states drives self and states no transportation concerns at this time. also drives DME: Has functioning glucometer w/supplies. She states is getting low on lancets and plans to call her PCP for refills. HHC/SNF: No hx SNF. Has had HHC in the past after knee surgery. She denies need for HHC @ d/c. Anticipate pt will discharge home on Lovenox inj. Pt states is comfortable w/giving herself injections, as she already does insulin injections. Pt wishes to return home and states has no concerns with going home at time of discharge. CM to follow for any discharge planning/needs. Pt voices no further concerns/needs at this time. Advised pt to ask for CM if any further questions/concerns/needs arise. Voices understanding. PLAN: Home w/family support and discharge plans in place. CM to follow for Lovenox @ d/c. Kasey RASMUSSEN RN, CM
[2022-04-12 12:14] LABS: Partial Thromboplast Time 54.1 Seconds (24.1-36.2)
--- NOTE | 2022-04-12 12:19 | CASEMGMT ---
SUNI CM NOTE: Call placed to [facility] pharmacy to obtain pt's Rx coverage info: Pt has [employer] Rx coverage. ID: [id number] Grp: [id number] Call placed to Alexa Farhanjaden @ . Per medical billing representative, Anna will require Prior auth. Direct # to obtain PA is: . Kasey RASMUSSEN RN CM
[2022-04-12] MEDS: Heparin Injection (Vial) 5,000 UNIT/ML VIAL IV (12:29)
[2022-04-12 12:55] LABS: Bedside Glucose 146 mg/dL (74-106)
--- NOTE | 2022-04-12 14:45 | PN.HOSP_ITS ---
Subjective Subjective Patient complaining of left medial scapular pain which sounds like precipitated her work-up in the first place. She was on [place] at home without much help. She also states that she has not had a bowel movement since Tuesday and would like something to help with this. Constipation has been problematic for her p reviously. We did discuss the plan of care with regards to her pulmonary embolisms as well as her pancreatic mass and probable biopsy. Last Eliquis dose was a.m. of 04/11/2022. Patient will need to be off Eliquis for 48 hours prior to biopsy. Patient did report that she has had unintentional weight loss in the last month. Objective Data Objective Data Vital Signs: Vital Signs Temp Pulse Resp BP Pulse Ox O2 Del Method 98.1 F 79 14 148/53 H 98 Room Air 04/12/22 08:12 04/12/22 08:12 04/12/22 08:12 04/12/22 08:12 04/12/22 08:12 04/12/22 10:00 Oxygen Delivery Method Room Air Weight: 83.869 kg Body Mass Index (BMI) 33.8 Intake & Output: Intake and Output for Last 24 Hours 04/10/22 04/11/22 04/12/22 23:59 23:59 23:59 Intake Total 940.4 / 940.4 567.45 / 567.45 Balance 940.4 / 940.4 567.45 / 567.45 Lab / Micro Data Result Diagrams: 04/12/22 05:36 04/12/22 05:36 Labs: Laboratory Results - last 24 hr 04/11/22 16:45: POC Glucose 150 H 04/11/22 17:24: Troponin I High Sens 402 H* 04/11/22 19:53: APTT 165.7 H* 04/11/22 20:05: POC Glucose 149 H 04/12/22 05:36: WBC 13.0 H, RBC 3.32 L, Hgb 10.0 L, Hct 31.0 L, MCV 93.4, MCH 30.1, MCHC 32.3, RDW Std Deviation 49.2 H, RDW Coeff of Rojelio 14.5, Plt Count 131 L, MPV 10.6, Immature Gran % (Auto) 0.500, Neut % (Auto) 69.1, Lymph % (Auto) 17.2 L, [place] % (Auto) 9.5, Eos % (Auto) 3.0, Baso % (Auto) 0.7, Absolute Neuts (auto) 9.0 H, Absolute Lymphs (auto) 2.24, Nucleated RBC % 0 04/12/22 05:36: Sodium 139, Potassium 4.4, Chloride 112 H, Carbon Dioxide 18.0 L , Anion Gap 9, BUN 24 H, Creatinine 0.92, Estim Creat Clear Calc 40.50, Est GFR (MDRD) Af Amer 76, Est GFR (MDRD) Non-Af 63, BUN/Creatinine Ratio 26.0 H, Glucose 130 H, Calcium 9.0 04/12/22 05:36: APTT 71.2 H 04/12/22 11:55: APTT 54.1 H 04/12/22 12:35: POC Glucose 146 H Micro: Microbiology 04/11/22 11:00 Nasal Secretion SARS-CoV-2 & FLU Antigen (Rapid) - Final Radiography Diagnostic Testing: Radiology Impression Echocardiogram 04/11/22 15:05 Interpretation Summary Normal LV size. Left ventricular systolic function is normal. The estimated ejection fraction is 60 %. Mild-Moderate (1-2+) eccentric mitral valve insufficiency. Stage 2 diastolic dysfunction. Pulmonary artery systolic pressure is 77 mmHg. Moderate pulmonary hypertension. The previous the mitral regurgitation and tricuspid regurgitation are worse in the aortic valve is more thickened. Ordering Physician: Abebe Martinez Referring Physician: Indu Soria M.D. Performed By: Odette Cespedes RCS Abdomen/Pelvis CT 04/12/22 08:05 IMPRESSION: Small bilateral pleural effusions with bibasilar atelectasis and/or early infiltrates. Heterogeneous appearance of the liver parenchyma suggestive of metastatic disease. Heterogeneous enhancement of the spleen. 2.3 cm x 2.6 cm hypodense mass in the tail of the pancreas. Electronically Signed: Jairo Welch MD at 12:17 EST , Physical Exam Const alert, oriented x3 and no apparent distress Constitutional Narrative: Older white female sitting up in chair at the bedside, family at bedside, patient appears comfortable and nontoxic at this time HEENT head/scalp atraumatic and moist oral mucous membranes HEENT Narrative: Mallampati 2, no thrush Head and Scalp: normocephalic Eyes PERRL and EOMs intact bilaterally Eyes Narrative: No scleral icterus Resp normal respiratory effort, no retractions, no use of accessory muscles and clear to auscultation bilaterally Auscultation: Negative for crackles, rhonchi or wheezes Cardio regular rate, regular rhythm, S1 normal heart sound, S2 normal heart sound, no murmurs, no rub, no gallops and no clicks GI normal to inspection, nondistended, normoactive bowel sounds, soft to palpation and non-tender Extremity no clubbing, cyanosis or edema Extremity Narrative: 2+ pedal pulses Skin no rashes or lesions noted, no wounds, skin turgor normal, no jaundice, no petechiae and no mottling Neuro oriented x3, moves all extremities and no focal motor deficits Speech: speech normal Psych affect normal Psych Narrative: Very pleasant, appropriately interactive Assessment & Plan Assessment/Plan (1) Elevated troponin: (2) Pulmonary embolism: (3) Pancreatic mass: (4) Metastatic malignant neoplasm of unknown primary site: (5) Anemia: (6) Constipation: (7) Thrombocytopenia: PLAN: Plan Acute pulmonary embolism/upper extremity DVT -CTA of the chest on 04/11/2022 demonstrated small subsegmental and segmental right lower pulmonary emboli as well as bilateral pulmonary nodules and mediastinal lymphadenopathy with a pancreatic tail mass and sclerotic lesions of the cervicothoracic spine suspicious for osteoblastic metastasis -Suspect the PE is a result of metastatic pancreatic cancer -Patient without any pain list on this however the masses in the tail of the pancreas which would not cause any obstruction -Continue heparin drip for now with plans to transition to Lovenox after CT- guided biopsy versus ERCP is performed -Plan to transition to Lovenox at discharge Pancreatic tail mass with metastatic disease -Suspect this is a pancreatic primary adenocarcinoma -Discussed case with interventional radiology and will plan for either CT-guided biopsy of the liver versus ERCP after I discussed the case with GI -Last Eliquis dose was a.m. of 04/11/2022 so the first that we could do the biopsy would be on 04/13/2022 -I did discuss the overall prognosis of pancreatic primaries with the patient and family at the bedside and they voiced understanding -Appears that she does have Trousseau's sign with the above VTE -We will need oncology follow-up after discharge Left shoulder pain -MRI of the cervical spine reviewed and appears there is concern for 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 -Start Decadron 4 mg daily -Topical lidocaine patch -As needed oxycodone every 4 hours 5 mg -Start tizanidine 2 mg every 8 hours scheduled -Reevaluate tomorrow Constipation -Start scheduled MiraLAX today -We will trial 1 dose of lactulose Troponin elevation -Echocardiogram done on 04/12/2021 demonstrated an EF of 60% with stage II diastolic dysfunction, severe pulmonary artery hypertension showing a pulmonary artery systolic pressure of 77 mmHg -Most likely related to acute PE -No wall motion abnormality on echo -Patient without any chest pain -Continue anticoagulation as noted above Anemia -This is new since admission -Repeat CBC in a.m. -Possibly somewhat dilutional -If continues to trend down will need to evaluate for any occult bleeding Thrombocytopenia -Mild with platelet count of 131,000 -Improved since yesterday -May be consumptive related to PE -Repeat CBC in a.m. Hypertension -Continue home Coreg at 12.5 mg p.o. twice daily -Continue home losartan Hyperlipidemia -Continue home atorvastatin DM-2 -Continue home glargine 15 units at at bedtime -Hold home Trulicity -Hold home metformin -Sliding scale insulin -Accu-Cheks as ordered -We will need to monitor with addition of Decadron -Continue cardiac/carb controlled diet -Continue home Coreg DVT prophylaxis -Full anticoagulated with a heparin drip with plans to transition to Lovenox CODE STATUS -DNR CCA with no intubation Charges/Coding Visit Charges Inpatient E&M: [address] [facility] Hosp L3
[2022-04-12] MEDS: oxyCODONE 5 MG Tablet PO ×2 (14:47→21:25)
[2022-04-12] MEDS: Lactulose 20 GM/30 ML UDC PO (14:47)
[2022-04-12] MEDS: Polyethylene Glycol 3350 17 GM PACKET PO (14:47)
[2022-04-12] MEDS: tiZANidine HCl 2 MG Tablet PO (14:50)
[2022-04-12] MEDS: HEPARIN/D5w 25,000 UNITS 25,000 UNITS/250 ML IV.SOLN. 10 UNITS CONT INF (15:56)
[2022-04-12] MEDS: dexAMETHasone 4 MG Tablet PO (15:57)
[2022-04-12 16:00] VITALS: BP 122/48; PULSE 73; RESP 14; TEMP 36.4; O2SAT 97
[2022-04-12 17:45] LABS: Bedside Glucose 153 mg/dL (74-106)
[2022-04-12 19:23] LABS: Partial Thromboplast Time 97.6 Seconds (24.1-36.2)
[2022-04-12 21:30] VITALS: BP 132/59; PULSE 78; RESP 16; TEMP 36.7; O2SAT 96
[2022-04-12] MEDS: Atorvastatin Calcium 10 MG Tablet PO (21:40)
[2022-04-12] MEDS: traZODone 50 MG Tablet PO (21:52)
[2022-04-12] MEDS: Insulin Lispro 100 UNIT/ML INSULN.PEN SC (21:53)
[2022-04-12] MEDS: Insulin Glargine-YFGN 100 UNIT/ML Pen 15 UNIT SC (21:57)
[2022-04-12 22:00] VITALS: PULSE 78
[2022-04-13] VITALS (17 sets, daily range): BP systolic 104–143; BP diastolic 46–72; PULSE 71–79; RESP 13–24; TEMP 36.3–36.8; O2SAT 94–100
--- NOTE | 2022-04-13 | ASPIGT_PTH ---
PATIENT: LIBERTAD ESTRADA LOC: [facility] U#:[id number] AGE/SX: 76/F ROOM: [facility] RE04/11/[address]: Dr. Nydia Root DO : 1945 BED: 1 DIS: 04/15/2022 SPEC #: [id number] RECD: 04/13/22 14:12 STATUS: DRISS REQ #: [id number] LISA: 04/13/22 00:[address]: Abebe Martinez DEPT: SURGICAL PATHOLOGY RECD BY: Lele Oro ENTERED: 04/13/22 14:12 SP TYPE: ASP RAD OTHR DR: DO Dr. Nydia Horta DO Dr. Nicholas F Kotsonis, MD Tissues: Liver, NOS Procedures: FNA Specimen Adequacy Special Stain Group II Surgery Specimen Level V Imprint (control) Comments: @ Ordering doctor for SSII edited from to @ by RETA at 04/13/221558 @ Ordering doctor for SUIV edited from to DR.NKOTSO Green by RETA at 04/13/22 155 @ Ordering doctor for SUV edited from to @ by RETA at 04/13/22 155 @ Ordering doctor for IMPRINT edited from to DR.NKOTSO Green by RETA at 04/13/221558 @ Ordering doctor for FNASA edited from to DR.NKOTSO Green by RETA at 04/13/22 155 @ Submitting doctor edited from to DR.NKOTSO Green by RETA at 04/13/22 155 HEADER OPERATION: CT-guided liver biopsy PRE-OP DIAGNOSIS: Mass TISSUE SUBMITTED: Liver 18-gauge x5 MICROSCOPIC DIAGNOSIS Liver, CT-guided core biopsy: Metastatic adenocarcinoma. See comment. AM:[place] 04/14/2022 COMMENT The specimen is evaluated at the time of biopsy by Dr. Bae. Immediate Evaluation = A few atypical cells noted. Immunohistochemistry ([id number]) supports the above diagnosis and is consistent with an upper GI/pancreatobiliary primary. This case was reviewed and diagnosis discussed with Dr. Araujo on 04/16/22. Case has been reviewed in consultation with Dr. Bae who concurs with the above diagnosis. IDC:SJ MICROSCOPIC DESCRIPTION Slides are reviewed. GROSS DESCRIPTION Received in fixative is one container labeled with the patient's name and designated liver. The specimen consists of multiple cores of kyle tissue that in aggregate measure 1 x 0.7 x 0.1 cm. The specimen is totally submitted in one cassette. Two touch imprints are prepared at the time of core biopsy. / SJ:rg 04/13/2022 TC:0 CPT: 15964
--- NOTE | 2022-04-13 | IMM_PTH ---
PATIENT: LIBERTAD ESTRADA LOC: U U#:[id number] AGE/SX: 76/F ROOM: [facility] RE04/11/[address]: Dr. Nydia Root, : 1945 BED: 1 DIS: 04/15/2022 SPEC #: [id number] RECD: 04/14/22 14:29 STATUS: DRISS REOnesimo #: [id number] LISA: 04/13/22 00:[address]: Abebe Martinez DEPT: IMMUNOHISTOCHEMISTRY RECD BY: Zulma Cruz ENTERED: 04/14/22 14:31 SP TYPE: IMMUNO OTHR DR: Dr. Indu Soria, DO Dr. Nydia Root DO Tissues: Liver, NOS Procedures: RCC (add) NAPSIN A (add) CK20 (add) CK7 (add) CK8 (add) HEP PAR (add) KI-67 (add) MAMM (add) P53 (add) MD (add) TTF1 (add) Vimentin (add) Pankeratin (add) GATA3 (add) ER (initial) PHYSICIAN & INSTITUTION [place] [id number] SPECIMEN INFORMATION: Tissue Source: Liver Clinical Info: Mass Specimen Number: [id number] CPT code: 20881, 53985 x14 METHODOLOGY: Deparaffinized sections of prefer/formalin-fixed tissue or PAP/DQ stained slides are incubated with monoclonal/polyclonal antibodies/oligonucleotide probes. Localization is made via biotin free immunoperoxidase method. Appropriate controls are performed and reacted as expected. Results on target cell population are indicated in the following table: RESULTS: ANTIBODY / CLONE RESULT ER (6F11) negative MD (1E2) negative Mammaglobin (31A5) negative GATA3 (L50-823) positive, focal, dim AE1-3 (AE1/AE3/PCK26) positive CK7 (OV-TL12/30) positive, focal CK8 (40rqvzU23) negative CK20 (KS20.8) negative Vimentin (V9) negative TTF-1 (8G7G3/1) negative Napsin A (Rabbit Polyclonal) positive, focal HepPar (OCh1E5) negative RCC (PN-15) negative P53 (DO-7) positive, 90% Ki-67 (30-9) positive These tests were developed and their performance characteristics determined by [facility]. They may not have been cleared or approved by the U.S. Food and Drug Administration. The FDA has determined that such clearance or approval is not necessary. The above immunohistochemical/dualISH markers are ordered and reviewed by the Pathologist. INTERPRETATION: Liver, CT-guided core biopsy: Adenocarcinoma. See comment. AM:[place] 04/16/2022 Comment: The immunohistochemical profile is consistent with upper GI/pancreatobiliary primary.
[2022-04-13 03:10] LABS: Partial Thromboplast Time 60.5 Seconds (24.1-36.2)
[2022-04-13 03:46] LABS: Bedside Glucose 311 mg/dL (74-106)
[2022-04-13] MEDS: Insulin Lispro 100 UNIT/ML INSULN.PEN SC ×3 (06:48→21:42)
[2022-04-13 07:10] LABS: Bedside Glucose 204 mg/dL (74-106)
[2022-04-13 09:12] LABS: Absolute Lymphocyte Count 1.39 X10^3/uL (0.83-4.51); Absolute Neutrophil Count 11.1 X10^3/uL (2.0-7.7); Basophil# 0.03 X10^3/uL; Basophil% 0.2 % (0-1); Eosinophil# 0.01 X10^3/uL; Eosinophils% 0.1 % (0-5); Hematocrit 30.5 % (37-47); Lymphocyte # 1.39 X10^3/ul (0.83-4.51); Lymphocyte % 10.3 % (19-41); Mean Corp Hgb Conc 32.8 g/dL (32-36); Mean Corpuscular Hgb 30.2 pg (27.0-32.0); Mean Corpuscular Volume 92.1 fL (81-99); Mean Platelet Vol. 10.9 fl (6.2-12.0); Monocyte# 0.81 X10^3/uL; NRBC Flagged by Analyzer 0 % (0-5); Neutrophil # 11.11 X10^3/uL (2.7-7.7); Neutrophil % 82.7 % (47-70); Platelet Count 174 K/mm3 (150-450); RBC Distribution Width CV 14.7 % (11.6-14.6); RBC Distribution Width SD 49.1 fl (35.1-43.9); Red Blood Count 3.31 M/mm3 (4.2-5.4); White Blood Count 13.5 K/mm3 (4.4-11.0)
[2022-04-13 09:28] LABS: Partial Thromboplast Time 56.1 Seconds (24.1-36.2)
[2022-04-13 09:30] LABS: AST(SGOT) 66 U/L (15-37); Alanine Aminotransfer ALT/SGPT 67 U/L (13-56); Albumin, Serum 3.3 g/dL (3.2-5.0); Alkaline Phosphatase 557 U/L (45-117); Anion Gap 8 (5-15); BUN 29 mg/dL (7-18); Calcium,Total 9.1 mg/dL (8.5-10.1); Chloride 110 mmol/L (98-107); Creatinine, Serum 1.32 mg/dL (0.55-1.02); EST Glomerular Filtration Rate 41 mL/min (>60); Est Glom Filt Rate - Afr Amer 50 mL/min (>60); Estimated Creatinine Clearance 28.23 ml/min; Globulin 3.4 g/dL (2.2-4.2); Glucose 228 mg/dL (74-106); Potassium 4.7 mmol/L (3.5-5.1); Protein, Total 6.7 g/dL (6.4-8.2); Sodium Level 137 mmol/L (136-145)
[2022-04-13] MEDS: Lidocaine 5% Patch 1 PATCH TOPICAL (11:36)
[2022-04-13] MEDS: Carvedilol 12.5 MG Tablet PO ×2 (11:37→21:14)
[2022-04-13] MEDS: Losartan Potassium 100 MG Tablet PO (11:37)
--- NOTE | 2022-04-13 12:06 | PN.HOSP_ITS ---
Subjective Subjective Patient states that her pain was much better managed overnight. She finally got a good night sleep. She also indicates she had a bowel movement yesterday. We discussed her biopsy later today and she is agreeable. The plan will be to start Lovenox this evening after her biopsy is complete discontinue heparin pilar ohara. We are hopeful for discharge tomorrow. I did discuss the case with radiation oncology and he will see her on Tuesday. Objective Data Objective Data Vital Signs: Vital Signs Temp Pulse Resp BP Pulse Ox O2 Del Method O2 Flow Rate 97.7 F L 77 16 132/60 H 97 Room Air 96 04/13/22 11:32 04/13/22 11:32 04/13/22 11:32 04/13/22 11:32 04/13/22 11:32 04/13/22 11:32 04/12/22 22:00 Oxygen Flow Rate (L/min) 96 Oxygen Delivery Method Room Air Weight: 83.869 kg Body Mass Index (BMI) 33.8 Intake & Output: Intake and Output for Last 24 Hours 04/11/22 04/12/22 04/13/22 23:59 23:59 23:59 Intake Total 940.4 / 940.4 1111.79 / 1311.79 300.00 / 300.00 Output Total 0 / 0 Balance 940.4 / 940.4 1111.79 / 1311.79 300.00 / 300.00 Lab / Micro Data Result Diagrams: 04/13/22 09:02 04/13/22 09:02 Labs: Laboratory Results - last 24 hr 04/12/22 11:55: APTT 54.1 H 04/12/22 12:35: POC Glucose 146 H 04/12/22 17:22: POC Glucose 153 H 04/12/22 18:38: APTT 97.6 H* 04/12/22 21:44: POC Glucose 311 H 04/13/22 02:52: APTT 60.5 H 04/13/22 06:46: POC Glucose 204 H 04/13/22 09:02: APTT 56.1 H 04/13/22 09:02: WBC 13.5 H, RBC 3.31 L, Hgb 10.0 L, Hct 30.5 L, MCV 92.1, MCH 30.2, MCHC 32.8, RDW Std Deviation 49.1 H, RDW Coeff of Rojelio 14.7 H, Plt Count 174, MPV 10.9, Immature Gran % (Auto) 0.700, Neut % (Auto) 82.7 H, Lymph % (Auto) 10.3 L, [place] % (Auto) 6.0, Eos % (Auto) 0.1, Baso % (Auto) 0.2, Absolute Neuts (auto) 11.1 H, Absolute Lymphs (auto) 1.39, Nucleated RBC % 0 04/13/22 09:02: Sodium 137, Potassium 4.7, Chloride 110 H, Carbon Dioxide 19.0 L , Anion Gap 8, BUN 29 H, Creatinine 1.32 H, Estim Creat Clear Calc 28.23, Est GFR (MDRD) Af Amer 50 L, Est GFR (MDRD) Non-Af 41 L, BUN/Creatinine Ratio 22.0 H , Glucose 228 H, Calcium 9.1, Total Bilirubin 0.60, AST 66 H, ALT 67 H, Alkaline Phosphatase 557 H, Total Protein 6.7, Albumin 3.3, Globulin 3.4, Albumin/Globulin Ratio 1.0 Micro: Microbiology 04/11/22 11:00 Nasal Secretion SARS-CoV-2 & FLU Antigen (Rapid) - Final Radiography Diagnostic Testing: Radiology Impression Echocardiogram 04/11/22 15:05 Interpretation Summary Normal LV size. Left ventricular systolic function is normal. The estimated ejection fraction is 60 %. Mild-Moderate (1-2+) eccentric mitral valve insufficiency. Stage 2 diastolic dysfunction. Pulmonary artery systolic pressure is 77 mmHg. Moderate pulmonary hypertension. The previous the mitral regurgitation and tricuspid regurgitation are worse in the aortic valve is more thickened. Ordering Physician: Abebe Martinez Referring Physician: Indu Soria M.D. Performed By: Odette Cespedes RCS Abdomen/Pelvis CT 04/12/22 08:05 IMPRESSION: Small bilateral pleural effusions with bibasilar atelectasis and/or early infiltrates. Heterogeneous appearance of the liver parenchyma suggestive of metastatic disease. Heterogeneous enhancement of the spleen. 2.3 cm x 2.6 cm hypodense mass in the tail of the pancreas. Electronically Signed: Jairo Welch MD at 12:17 EST , Physical Exam Const alert, oriented x3 and no apparent distress Constitutional Narrative: Older white female sitting up in chair at the bedside, her on the telephone, patient appears comfortable and nontoxic at this time HEENT head/scalp atraumatic and moist oral mucous membranes Head and Scalp: normocephalic Resp normal respiratory effort, no retractions, no use of accessory muscles and clear to auscultation bilaterally Auscultation: Negative for crackles, rhonchi or wheezes Cardio regular rate, regular rhythm, S1 normal heart sound, S2 normal heart sound, no murmurs, no rub, no gallops and no clicks GI normal to inspection, nondistended, normoactive bowel sounds, soft to palpation and non-tender Extremity no clubbing, cyanosis or edema Extremity Narrative: 2+ pedal pulses Neuro oriented x3, moves all extremities and no focal motor deficits Speech: speech normal Psych affect normal Psych Narrative: Very pleasant, appropriately interactive Assessment & Plan Assessment/Plan (1) Elevated troponin: (2) Pulmonary embolism: (3) Pancreatic mass: (4) Metastatic malignant neoplasm of unknown primary site: (5) Anemia: (6) Constipation: (7) Thrombocytopenia: PLAN: Plan Acute pulmonary embolism/upper extremity DVT -CTA of the chest on 04/11/2022 demonstrated small subsegmental and segmental right lower pulmonary emboli as well as bilateral pulmonary nodules and mediastinal lymphadenopathy with a pancreatic tail mass and sclerotic lesions of the cervicothoracic spine suspicious for osteoblastic metastasis -Suspect the PE is a result of metastatic cancer -Continue heparin drip for now and will transition to Lovenox later today after biopsy -Prescription sent for preauthorization -Patient will need education on self injection for Lovenox after discharge 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 of 04/11/2022 -Discussed case both with Dr. Dawkins from medical oncology and Dr. Araujo from radiation oncology -Dr. Araujo felt that that would be amenable to radiation and will see the patient on Tuesday -Dr. Dawkins will arrange follow-up after discharge -CA 19-9 pending Left shoulder pain -MRI of the cervical spine reviewed and appears there is concern for 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 -Continue Decadron and will plan on discharging with this -Topical lidocaine patch -As needed oxycodone every 4 hours 5 mg -Continue tizanidine 2 mg every 8 hours scheduled -Pain was much improved with above interventions -Would not pursue MRI of the shoulder at this time -We will plan for outpatient follow-up with radiation oncology as I feel this is likely related to metastatic disease based on previous cervical spine imaging Constipation -Continue scheduled MiraLAX today -Resolved with good bowel movement yesterday Troponin elevation -Echocardiogram done on 04/12/2021 demonstrated an EF of 60% with stage II diastolic dysfunction, severe pulmonary artery hypertension showing a pulmonary artery systolic pressure of 77 mmHg -Most likely related to acute PE -No wall motion abnormality on echo -Patient without any chest pain -Continue anticoagulation as noted above Anemia -Stable at 10.0 -Possibly somewhat dilutional Thrombocytopenia -Resolved -Suspect consumption related to PE Hypertension -Continue home Coreg at 12.5 mg p.o. twice daily -Continue home losartan Hyperlipidemia -Continue home atorvastatin DM-2 -Continue home glargine but increase from 15 units at at bedtime to 20 units at bedtime with steroid initiation -And fasting blood sugar was 228 -Hold home Trulicity -Hold home metformin -Sliding scale insulin -Accu-Cheks as ordered -We will need to monitor with addition of Decadron -Continue cardiac/carb controlled diet -Continue home Coreg DVT prophylaxis -Full anticoagulated with a heparin drip with plans to transition to Lovenox CODE STATUS -DNR CCA with no intubation Charges/Coding Visit Charges Inpatient E&M: 13591 Subs Hosp L2
[2022-04-13 13:36] LABS: Bedside Glucose 170 mg/dL (74-106)
[2022-04-13] MEDS: Midazolam 2 MG/2 ML Syringe IV (13:39)
[2022-04-13] MEDS: fentaNYL 100 MCG/2 ML Ampul IV (13:40)
[2022-04-13] MEDS: Lidocaine 2% (20 ml mdv) 20 ML Vial INFILT (13:55)
[2022-04-13] MEDS: oxyCODONE 5 MG Tablet PO ×2 (15:55→21:32)
[2022-04-13] MEDS: tiZANidine HCl 2 MG Tablet PO ×2 (15:57→21:14)
--- NOTE | 2022-04-13 17:40 | CT_ITS ---
PROCEDURE: CT DIRECTED CORE LIVER BIOPSY INDICATION: Female, 76 years old. PANCREATIC MASS- -- BX LIVER METS PHYSICIAN: Dr. RONI Stack CONSENT: Written informed consent was obtained having explained the risks, benefits and alternatives in detail with the patient who accepted the risks and agreed to proceed. Laboratory review and clinical assessment was performed. CONSCIOUS SEDATION PROTOCOL: The Drugs used were: 2 mg Versed, IV., and 50 mcg Fentanyl, IV. The sedation time was: 20 minutes. Conscious sedation was started at 1:40 PM and terminated at 2:00 PM. The conscious sedation protocol was independently monitored. RADIATION DOSAGE (If Supplied By Facility): CTDIvol = ( 22 ) mGy, DLP = ( 621 ) mGycm Individualized dose optimization techniques were used for this CT. TECHNIQUE: Using CT image guidance with image documentation, a suitable location in the right lobe of the liver was identified. Using an anterior approach, puncture of the liver was uneventful with an 18-gauge core needle system. 5, 18-gauge core samples were obtained, and submitted in formalin to the pathologist for further assessment. Followup CT scan revealed no distinct sequelae. CT/Biopsy/Inj or Needle Placement IMPRESSION: 1. CT directed core needle biopsy of the liver, using CT image guidance with image documentation as described. 2. Conscious Sedation protocol utilized with independent monitoring. Electronically Signed: Jairo Welch MD at 14:31 EST ,
[2022-04-13] MEDS: Enoxaparin 80 MG/0.8 ML Syringe SC (19:12)
[2022-04-13] MEDS: traZODone 50 MG Tablet PO (21:13)
[2022-04-13] MEDS: Atorvastatin Calcium 10 MG Tablet PO (21:13)
[2022-04-13] MEDS: Polyethylene Glycol 3350 17 GM PACKET PO (21:22)
[2022-04-13] MEDS: Insulin Glargine-YFGN 100 UNIT/ML Pen 20 UNIT SC (21:43)
[2022-04-14 02:47] LABS: Bedside Glucose 151 mg/dL (74-106)
[2022-04-14 02:47] LABS: Bedside Glucose 208 mg/dL (74-106)
[2022-04-14 03:15] VITALS: BP 103/54; PULSE 73; RESP 16; TEMP 36.3; O2SAT 100
[2022-04-14 06:31] LABS: Absolute Lymphocyte Count 2.22 X10^3/uL (0.83-4.51); Absolute Neutrophil Count 9.2 X10^3/uL (2.0-7.7); Basophil# 0.05 X10^3/uL; Basophil% 0.4 % (0-1); Eosinophil# 0.47 X10^3/uL; Eosinophils% 3.6 % (0-5); Hematocrit 28.3 % (37-47); Hemoglobin 9.1 g/dL (12.0-15.0); Lymphocyte # 2.22 X10^3/ul (0.83-4.51); Lymphocyte % 17.2 % (19-41); Mean Corp Hgb Conc 32.2 g/dL (32-36); Mean Corpuscular Hgb 30.4 pg (27.0-32.0); Mean Corpuscular Volume 94.6 fL (81-99); Mean Platelet Vol. 11.7 fl (6.2-12.0); Monocyte# 0.85 X10^3/uL; Monocyte% 6.6 % (0-10); NRBC Flagged by Analyzer 0 % (0-5); Neutrophil # 9.24 X10^3/uL (2.7-7.7); Neutrophil % 71.4 % (47-70); Platelet Count 177 K/mm3 (150-450); RBC Distribution Width CV 15.1 % (11.6-14.6); Red Blood Count 2.99 M/mm3 (4.2-5.4); White Blood Count 12.9 K/mm3 (4.4-11.0)
[2022-04-14 07:01] LABS: ALB/GLOB Ratio 1.1 RATIO (0.9-2.4); AST(SGOT) 154 U/L (15-37); Alanine Aminotransfer ALT/SGPT 110 U/L (13-56); Albumin, Serum 3.3 g/dL (3.2-5.0); Alkaline Phosphatase 593 U/L (45-117); Anion Gap 8 (5-15); BUN 37 mg/dL (7-18); BUN/Creat Ratio 18.6 RATIO (10-20); Calcium,Total 8.5 mg/dL (8.5-10.1); Chloride 108 mmol/L (98-107); Creatinine, Serum 1.99 mg/dL (0.55-1.02); EST Glomerular Filtration Rate 26 mL/min (>60); Est Glom Filt Rate - Afr Amer 31 mL/min (>60); Estimated Creatinine Clearance 18.72 ml/min; Globulin 3.1 g/dL (2.2-4.2); Glucose 151 mg/dL (74-106); Potassium 4.6 mmol/L (3.5-5.1); Protein, Total 6.4 g/dL (6.4-8.2); Sodium Level 137 mmol/L (136-145)
[2022-04-14 07:10] LABS: Bedside Glucose 129 mg/dL (74-106)
[2022-04-14 07:45] VITALS: O2SAT 97
--- NOTE | 2022-04-14 08:20 | US_ITS ---
INDICATION: Transaminitis - EXAMINATION: US Scrotum (Contents) TECHNIQUE: Martinez-scale and color Doppler imaging was performed of the right upper abdominal quadrant. COMPARISON: None. Findings: The liver is heterogenous with areas of increased and decreased echogenicity, however is normal in echotexture. There is no evidence of contour nodularity. No focal hepatic mass is identified. The main portal vein is normal in size and patent demonstrating hepatopetal flow. The gallbladder is surgically absent. Sonographic Baker''s tenderness is not appreciated. There is no evidence of intrahepatic biliary ductal dilatation. The CBD is dilated measuring 9 mm at the level of the bruna hepatis most likely due to reservoir effect. The visualized portions of the pancreas are unremarkable without evidence of focal or diffuse enlargement. Specifically, the tail is obscured by overlying bowel gas. Right kidney measures 8.7 cm in length. It is normal in echogenicity. No focal renal lesion is identified. There is no evidence of hydronephrosis. US/Abdomen Limited IMPRESSION: Heterogenous liver without evidence of contour nodularity. Findings are nonspecific and may be consistent with sequelae of fatty infiltration or other forms of diffuse liver disease. No evidence of focal hepatic mass. Remainder of the exam is otherwise unremarkable. Electronically Signed: Ruben Hanna MD at 17:55 EST ,
[2022-04-14] MEDS: dexAMETHasone 4 MG Tablet PO (09:00)
[2022-04-14 09:01] VITALS: BP 112/42; PULSE 74; RESP 16; TEMP 36.7; O2SAT 99
[2022-04-14] MEDS: 0.9% Normal Saline 1,000 ML 100 ML IV ×2 (09:06→18:19)
[2022-04-14] MEDS: 0.9% Saline Lock 10 ML Syringe IV (09:06)
[2022-04-14] MEDS: Lidocaine 5% Patch 1 PATCH TOPICAL (09:07)
[2022-04-14] MEDS: Enoxaparin 80 MG/0.8 ML Syringe SC (09:08)
[2022-04-14] MEDS: Ascorbic Acid 500 MG Tablet 250 MG PO (09:09)
[2022-04-14] MEDS: Polyethylene Glycol 3350 17 GM PACKET PO (09:32)
[2022-04-14 11:52] LABS: Hemoglobin 8.6 g/dL (12.0-15.0)
[2022-04-14 11:56] LABS: Bedside Glucose 199 mg/dL (74-106)
[2022-04-14 12:16] LABS: Anion Gap 11 (5-15); BUN 40 mg/dL (7-18); BUN/Creat Ratio 19.5 RATIO (10-20); Calcium,Total 8.6 mg/dL (8.5-10.1); Chloride 105 mmol/L (98-107); Creatinine, Serum 2.05 mg/dL (0.55-1.02); EST Glomerular Filtration Rate 25 mL/min (>60); Est Glom Filt Rate - Afr Amer 30 mL/min (>60); Estimated Creatinine Clearance 18.18 ml/min; Glucose 182 mg/dL (74-106); Potassium 4.5 mmol/L (3.5-5.1); Sodium Level 135 mmol/L (136-145)
[2022-04-14] MEDS: oxyCODONE 5 MG Tablet PO (14:06)
[2022-04-14 14:38] VITALS: BP 126/55; PULSE 76; RESP 16; TEMP 36.8; O2SAT 96
--- NOTE | 2022-04-14 15:29 | PN.HOSP_ITS ---
Subjective Subjective Patient reports she is having a little bit of pain at the site of her biopsy but overall no significant pain at rest. Continues to sleep better. No bowel movement yesterday however she states that she typically does not have daily bowel movements at home. I did discuss with her her renal function is elevated compared to her baseline today and I would like to see it stabilized and trend down prior to discharge I suspect its likely related to contrast that she had contrast for the CTA and the CT of her abdomen and pelvis and the timeframe for contrast-induced nephropathy would be about right at 2 to 3 days at this point. Her liver functions were also elevated and the etiology of this is unclear. Her alk phos was elevated on presentation however AST and ALT are newly elevated they were slightly elevated yesterday and have trended up since then it appears to be more like a medication induced etiology. Everything was explained the patient she voiced understanding. Objective Data Objective Data Vital Signs: Vital Signs Temp Pulse Resp BP Pulse Ox O2 Del Method O2 Flow Rate 98.3 F 76 16 126/55 H 96 Room Air 96 04/14/22 14:38 04/14/22 14:38 04/14/22 14:38 04/14/22 14:38 04/14/22 14:38 04/14/22 14:38 04/12/22 22:00 Oxygen Flow Rate (L/min) 96 Oxygen Delivery Method [5] Room Air Oxygen Delivery Method [4] Room Air Oxygen Delivery Method [3] Room Air Oxygen Delivery Method [2] Room Air Oxygen Delivery Method [1 ( Room Air Initial Baseline)] Oxygen Delivery Method Room Air Weight: 83.869 kg Body Mass Index (BMI) 33.8 Intake & Output: Intake and Output for Last 24 Hours 04/12/22 04/13/22 04/14/22 23:59 23:59 23:59 Intake Total 1111.79 / 1311.79 950.00 / 1050.00 100 / 100 Output Total 0 / 0 Balance 1111.79 / 1311.79 950.00 / 1050.00 100 / 100 Lab / Micro Data Result Diagrams: 04/14/22 11:45 04/14/22 11:45 Labs: Laboratory Results - last 24 hr 04/13/22 16:46: POC Glucose 151 H 04/13/22 21:40: POC Glucose 208 H 04/14/22 05:54: WBC 12.9 H, RBC 2.99 L, Hgb 9.1 L, Hct 28.3 L, MCV 94.6, MCH 30.4, MCHC 32.2, RDW Std Deviation 52.0 H, RDW Coeff of Rojelio 15.1 H, Plt Count 177, MPV 11.7, Immature Gran % (Auto) 0.800, Neut % (Auto) 71.4 H, Lymph % (Auto) 17.2 L, [place] % (Auto) 6.6, Eos % (Auto) 3.6, Baso % (Auto) 0.4, Absolute Neuts (auto) 9.2 H, Absolute Lymphs (auto) 2.22, Nucleated RBC % 0 04/14/22 05:54: Sodium 137, Potassium 4.6, Chloride 108 H, Carbon Dioxide 21.0, Anion Gap 8, BUN 37 H, Creatinine 1.99 H, Estim Creat Clear Calc 18.72, Est GFR (MDRD) Af Amer 31 L, Est GFR (MDRD) Non-Af 26 L, BUN/Creatinine Ratio 18.6, Glucose 151 H, Calcium 8.5, Phosphorus 5.0 H, Magnesium 2.0, Total Bilirubin 1.80 H, AST 154 H, ALT 110 H, Alkaline Phosphatase 593 H, Total Protein 6.4, Albumin 3.3, Globulin 3.1, Albumin/Globulin Ratio 1.1 04/14/22 06:25: POC Glucose 129 H 04/14/22 11:18: POC Glucose 199 H 04/14/22 11:45: Hgb 8.6 L, Hct 27.0 L 04/14/22 11:45: Sodium 135 L, Potassium 4.5, Chloride 105, Carbon Dioxide 19.0 L , Anion Gap 11, BUN 40 H, Creatinine 2.05 H, Estim Creat Clear Calc 18.18, Est GFR (MDRD) Af Amer 30 L, Est GFR (MDRD) Non-Af 25 L, BUN/Creatinine Ratio 19.5, Glucose 182 H, Calcium 8.6 Micro: Microbiology 04/11/22 11:00 Nasal Secretion SARS-CoV-2 & FLU Antigen (Rapid) - Final Physical Exam Narrative Const alert, oriented x3 and no apparent distress Constitutional Narrative: Older white female sitting up in chair at the bedside, family on phone at the time of my conversation with the patient, patient appears comfortable and nontoxic at this time HEENT head/scalp atraumatic and moist oral mucous membranes Eyes PERRL and EOMs intact bilaterally Eyes Narrative: No scleral icterus Resp normal respiratory effort, no retractions, no use of accessory muscles and clear to auscultation bilaterally Auscultation: Negative for crackles, rhonchi or wheezes Cardio regular rate, regular rhythm, S1 normal heart sound, S2 normal heart sound, no murmurs, no rub, no gallops and no clicks GI normal to inspection, nondistended, normoactive bowel sounds and soft to palpation GI Narrative: Mild right upper quadrant tenderness in the area of biopsy Extremity no clubbing, cyanosis or edema Extremity Narrative: 2+ pedal pulses Neuro oriented x3, moves all extremities and no focal motor deficits Speech: speech normal Psych affect normal Psych Narrative: Very pleasant, appropriately interactive Assessment & Plan Assessment/Plan (1) Elevated troponin: (2) Pulmonary embolism: (3) Pancreatic mass: (4) Metastatic malignant neoplasm of unknown primary site: (5) Anemia: (6) Constipation: (7) Thrombocytopenia: PLAN: Plan Acute pulmonary embolism/upper extremity DVT -CTA of the chest on 04/11/2022 demonstrated small subsegmental and segmental right lower pulmonary emboli as well as bilateral pulmonary nodules and mediastinal lymphadenopathy with a pancreatic tail mass and sclerotic lesions of the cervicothoracic spine suspicious for osteoblastic metastasis -Suspect the PE is a result of metastatic cancer -Continue subcu Lovenox -Prescription sent for preauthorization -Patient will need education on self injection for Lovenox after discharge 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 of 04/11/2022 -Discussed case both with Dr. Dawkins from medical oncology and Dr. Araujo from radiation oncology -Dr. Araujo felt that that would be amenable to radiation and will see the patient on Tuesday at 10 AM -Dr. Dawkins will arrange follow-up after discharge -CA 19-9 remains pending NANETTE -Serum creatinine up from 1.32 yesterday to 1.99 -This seems to be most consistent with contrast-induced nephropathy as she did receive contrast on the and -Repeat BMP this afternoon shows stabilizing serum creatinine at 2.05 with decreased rate of rise -Continue IV fluids -Hopeful that creatinine stabilizes and then starts to trend down -Currently on Lovenox for DVT however may need to convert back to heparin drip if renal function does not improve Transaminitis -Patient with alk phos/ALT/AST elevations -Appears more consistent with medication with regards to the liver enzymes as they were normal on presentation -We will check right upper quadrant ultrasound -Alk phos has been elevated throughout her admission and was 548 on presentation and now 593 however she has bony mets and I suspect this is likely related to this -Right upper quadrant ultrasound is pending Left shoulder pain -MRI of the cervical spine reviewed and appears there is concern for 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 -Continue Decadron and will plan on discharging with this -Topical lidocaine patch -As needed oxycodone every 4 hours 5 mg -Continue tizanidine 2 mg every 8 hours scheduled -Pain was much improved with above interventions -Would not pursue MRI of the shoulder at this time -We will plan for outpatient follow-up with radiation oncology as I feel this is likely related to metastatic disease based on previous cervical spine imaging Constipation -Continue scheduled MiraLAX today -Resolved with good bowel movement yesterday Troponin elevation -Echocardiogram done on 04/12/2021 demonstrated an EF of 60% with stage II diastolic dysfunction, severe pulmonary artery hypertension showing a pulmonary artery systolic pressure of 77 mmHg -Most likely related to acute PE -No wall motion abnormality on echo -Patient without any chest pain -Continue anticoagulation as noted above Anemia -Stable at 10.0 -Possibly somewhat dilutional Thrombocytopenia -Resolved -Suspect consumption related to PE Hypertension -Continue home Coreg at 12.5 mg p.o. twice daily -Hold losartan with worsening renal function -Add as needed hydralazine Hyperlipidemia -Continue home atorvastatin DM-2 -Continue home glargine at 20 units at at bedtime -Fasting blood sugar was 151 this morning -Hold home Trulicity -Hold home metformin -Sliding scale insulin -Accu-Cheks as ordered -We will need to monitor with addition of Decadron -Continue cardiac/carb controlled diet -Continue home Coreg DVT prophylaxis -Continue Lovenox but may need to switch back to heparin drip if renal function does not improve CODE STATUS -DNR CCA with no intubation Charges/Coding Visit Charges Inpatient E&M: 82248 Subs Hosp L2
--- NOTE | 2022-04-14 15:38 | CASEMGMT ---
SUNI BARON NOTE: Pt will be discharging home on Lovenox injections, which has been e-scribed to [facility] pharmacy. Call placed to [facility] and spoke w/pharmacist. She states no prior-auth is needed and cost is $168.05 for 5 day supply (10 syringes). Attempted to contact pt via phone at this time to inquire if this is affordable. No answer at this time. Will notify [employer], Sheron, of above to have her f/u with pt re: same. Kasey BSN SUNI BARON
[2022-04-14] MEDS: Insulin Lispro 100 UNIT/ML INSULN.PEN SC ×2 (16:43→21:22)
[2022-04-14 17:20] LABS: Bedside Glucose 228 mg/dL (74-106)
[2022-04-14 18:12] LABS: Carbohydrate AG 19-9 26242 U/mL (0-35)
[2022-04-14 21:11] VITALS: BP 128/50; PULSE 71; PULSE 77; RESP 18; TEMP 36.7; O2SAT 96
[2022-04-14] MEDS: tiZANidine HCl 2 MG Tablet PO (21:20)
[2022-04-14] MEDS: traZODone 50 MG Tablet PO (21:20)
[2022-04-14] MEDS: Insulin Glargine-YFGN 100 UNIT/ML Pen 20 UNIT SC (21:22)
[2022-04-14 21:45] LABS: Bedside Glucose 323 mg/dL (74-106)
[2022-04-15 03:00] VITALS: BP 130/56; PULSE 77; RESP 17; TEMP 36.6; O2SAT 97
[2022-04-15] MEDS: 0.9% Normal Saline 1,000 ML 100 ML IV (04:04)
[2022-04-15 05:30] LABS: Absolute Lymphocyte Count 1.13 X10^3/uL (0.83-4.51); Basophil# 0.01 X10^3/uL; Basophil% 0.1 % (0-1); Eosinophil# 0.02 X10^3/uL; Eosinophils% 0.1 % (0-5); Hematocrit 26.5 % (37-47); Hemoglobin 8.5 g/dL (12.0-15.0); Lymphocyte # 1.13 X10^3/ul (0.83-4.51); Lymphocyte % 8.1 % (19-41); Mean Corp Hgb Conc 32.1 g/dL (32-36); Mean Corpuscular Hgb 29.9 pg (27.0-32.0); Mean Corpuscular Volume 93.3 fL (81-99); Mean Platelet Vol. 11.2 fl (6.2-12.0); Monocyte# 0.78 X10^3/uL; Monocyte% 5.6 % (0-10); NRBC Flagged by Analyzer 0 % (0-5); Neutrophil # 11.95 X10^3/uL (2.7-7.7); Neutrophil % 85.1 % (47-70); Platelet Count 186 K/mm3 (150-450); RBC Distribution Width CV 14.7 % (11.6-14.6); RBC Distribution Width SD 50.2 fl (35.1-43.9); Red Blood Count 2.84 M/mm3 (4.2-5.4)
[2022-04-15] MEDS: tiZANidine HCl 2 MG Tablet PO ×2 (06:05→12:54)
[2022-04-15 06:07] VITALS: PULSE 68
[2022-04-15 06:08] LABS: ALB/GLOB Ratio 0.9 RATIO (0.9-2.4); AST(SGOT) 122 U/L (15-37); Alanine Aminotransfer ALT/SGPT 134 U/L (13-56); Alkaline Phosphatase 553 U/L (45-117); Anion Gap 11 (5-15); BUN 43 mg/dL (7-18); BUN/Creat Ratio 25.3 RATIO (10-20); Calcium,Total 8.2 mg/dL (8.5-10.1); Chloride 108 mmol/L (98-107); EST Glomerular Filtration Rate 31 mL/min (>60); Est Glom Filt Rate - Afr Amer 37 mL/min (>60); Estimated Creatinine Clearance 21.92 ml/min; Globulin 3.3 g/dL (2.2-4.2); Glucose 231 mg/dL (74-106); Phosphorus 4.2 mg/dL (2.5-4.9); Potassium 4.8 mmol/L (3.5-5.1); Protein, Total 6.3 g/dL (6.4-8.2); Sodium Level 136 mmol/L (136-145)
[2022-04-15] MEDS: Insulin Lispro 100 UNIT/ML INSULN.PEN SC ×2 (06:41→12:53)
[2022-04-15] MEDS: dexAMETHasone 4 MG Tablet PO (07:59)
[2022-04-15 08:00] VITALS: O2SAT 97
[2022-04-15] MEDS: Enoxaparin 80 MG/0.8 ML Syringe SC (08:08)
[2022-04-15] MEDS: Lidocaine 5% Patch 1 PATCH TOPICAL (08:08)
[2022-04-15] MEDS: Polyethylene Glycol 3350 17 GM PACKET PO (08:08)
[2022-04-15] MEDS: Carvedilol 12.5 MG Tablet PO (08:08)
[2022-04-15] MEDS: Ascorbic Acid 500 MG Tablet 250 MG PO (08:08)
[2022-04-15 08:20] LABS: Bedside Glucose 231 mg/dL (74-106)
[2022-04-15 09:00] VITALS: BP 123/63; PULSE 77; RESP 16; TEMP 36.3; O2SAT 99
[2022-04-15 09:30] LABS: Bedside Glucose 214 mg/dL (74-106)
--- NOTE | 2022-04-15 11:40 | DS.PCM_ITS ---
Providers Date of Admission: 04/11/22 Date of Discharge: 04/15/22 Primary Care Physician: Dr. Indu Soria DO Reason For Visit: PULMONARY EMBOLISM WITH POSSIBLE NON STEMI Diagnosis Discharge Diagnosis (1) Elevated troponin: Status: Acute Code(s): R77.8 - Other specified abnormalities of plasma proteins (2) Pulmonary embolism: Status: Acute Code(s): I26.99 - Other pulmonary embolism without acute cor pulmonale (3) Pancreatic mass: Status: Acute Code(s): K86.89 - Other specified diseases of pancreas (4) Metastatic malignant neoplasm of unknown primary site: Status: Acute Code(s): C79.9 - Secondary malignant neoplasm of unspecified site; C80.1 - Malignant (primary) neoplasm, unspecified (5) Anemia: Status: Acute Code(s): D64.9 - Anemia, unspecified (6) Constipation: Status: Acute Code(s): K59.00 - Constipation, unspecified (7) Thrombocytopenia: Status: Acute Code(s): D69.6 - Thrombocytopenia, unspecified Plan Acute pulmonary embolism/upper extremity DVT -CTA of the chest on 04/11/2022 demonstrated small subsegmental and segmental right lower pulmonary emboli as well as bilateral pulmonary nodules and mediastinal lymphadenopathy with a pancreatic tail mass and sclerotic lesions of the cervicothoracic spine suspicious for osteoblastic metastasis -Suspect the PE is a result of metastatic cancer -Continue subcu Lovenox -Prescription sent for preauthorization -Patient will need education on self injection for Lovenox after discharge 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 of 04/11/2022 -Discussed case both with Dr. Dawkins from medical oncology and Dr. Araujo from radiation oncology -Dr. Araujo felt that that would be amenable to radiation and will see the patient on Tuesday at 10 AM -Dr. Dawkins will arrange follow-up after discharge -CA 19-9 remains pending NANETTE -Serum creatinine up from 1.32 yesterday to 1.99 -This seems to be most consistent with contrast-induced nephropathy as she did receive contrast on the and -Repeat BMP this afternoon shows stabilizing serum creatinine at 2.05 with decreased rate of rise -Continue IV fluids -Hopeful that creatinine stabilizes and then starts to trend down -Currently on Lovenox for DVT however may need to convert back to heparin drip if renal function does not improve Transaminitis -Patient with alk phos/ALT/AST elevations -Appears more consistent with medication with regards to the liver enzymes as they were normal on presentation -We will check right upper quadrant ultrasound -Alk phos has been elevated throughout her admission and was 548 on presentation and now 593 however she has bony mets and I suspect this is likely related to this -Right upper quadrant ultrasound is pending Left shoulder pain -MRI of the cervical spine reviewed and appears there is concern for 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 -Continue Decadron and will plan on discharging with this -Topical lidocaine patch -As needed oxycodone every 4 hours 5 mg -Continue tizanidine 2 mg every 8 hours scheduled -Pain was much improved with above interventions -Would not pursue MRI of the shoulder at this time -We will plan for outpatient follow-up with radiation oncology as I feel this is likely related to metastatic disease based on previous cervical spine imaging Constipation -Continue scheduled MiraLAX today -Resolved with good bowel movement yesterday Troponin elevation -Echocardiogram done on 04/12/2021 demonstrated an EF of 60% with stage II diastolic dysfunction, severe pulmonary artery hypertension showing a pulmonary artery systolic pressure of 77 mmHg -Most likely related to acute PE -No wall motion abnormality on echo -Patient without any chest pain -Continue anticoagulation as noted above Anemia -Stable at 10.0 -Possibly somewhat dilutional Thrombocytopenia -Resolved -Suspect consumption related to PE Hypertension -Continue home Coreg at 12.5 mg p.o. twice daily -Hold losartan with worsening renal function -Add as needed hydralazine Hyperlipidemia -Continue home atorvastatin DM-2 -Continue home glargine at 20 units at at bedtime -Fasting blood sugar was 151 this morning -Hold home Trulicity -Hold home metformin -Sliding scale insulin -Accu-Cheks as ordered -We will need to monitor with addition of Decadron -Continue cardiac/carb controlled diet -Continue home Coreg DVT prophylaxis -Continue Lovenox but may need to switch back to heparin drip if renal function does not improve CODE STATUS -DNR CCA with no intubation Medications at Discharge Home Medications atorvastatin 10 mg tablet 10 mg PO DAILY cholesterol 07/06/17 calcium carbonate 600 mg-vitamin D3 20 mcg (800 unit) tablet 2 ea PO DAILY s upplement 09/23/16 metformin 1,000 mg tablet 1,000 mg PO BID diabetes 09/23/16 Cholecalciferol (Vitamin D3) [Vitamin D3] 5,000 unit PO DAILY vitamin 07/11/19 ascorbic acid (vitamin C) 250 mg tablet 250 mg PO DAILY vitamin 07/11/19 carvedilol 6.25 mg tablet 12.5 mg PO BID blood pressure 02/01/20 losartan 50 mg tablet 100 mg PO DAILY Blood pressure 02/01/20 cranberry 400 mg capsule 400 mg PO DAILY supplement 01/19/21 dulaglutide 1.5 mg/0.5 mL subcutaneous pen injector (Trulicity) 1.5 mg subcut QWEEK diabetes 02/25/22 multivitamin (Multiple Vitamins tablet) 2 tab PO DAILY supplement 02/25/22 enoxaparin 80 mg/0.8 mL subcutaneous syringe (Lovenox) 80 mg (0.8 mL) subcut Q12H #8 mL 04/13/22 dexamethasone 4 mg tablet 4 mg PO BREAKFAST #30 tabs 04/15/22 insulin degludec 100 unit/mL (3 mL) subcutaneous pen 28 unit (0.28 mL) subcut QHS diabetes #15 mL 04/15/22 lactulose 20 gram/30 mL oral solution 20 g (30 mL) PO DAILY PRN constipation #1,200 mL 04/15/22 oxycodone 5 mg tablet 5 mg PO Q4H PRN PRN Pain Score 6-10 5 days #30 tabs 04/15/22 polyethylene glycol 3350 17 gram oral powder packet 17 g PO DAILY #0 ea 04/15/22 trazodone 50 mg tablet 50 mg PO QHS #30 tabs 04/15/22 Hospital Course Operations - (CT-guided biopsy of the liver) Procedures 2-D Echocardiogram, EKG and - (CTA of the chest/CT of the abdomen pelvis/abdominal ultrasound) Summary of Care Provided Minutes Spent on Discharge: 39 Hospital Course: Mrs. Conroy is a 76-year-old white female who presented to the emergency department [facility] on 04/11/2022 with shortness of breath and chest pressure that had been going on for several weeks but gotten worse the day prior to presentation and even worse on the day of presentation. In the emergency department she was found to have an elevated troponin but did not have any significant chest pain at the time of hospitalist evaluation. A CTA of the chest was done and showed segmental and subsegmental pulmonary embolus. This occurred while she was on Eliquis for a right upper extremity DVT. Patient did indicate she was being worked up for cancer and had a recent PET scan that highlighted a pancreatic tail mass. No biopsy had yet been pursued. She was admitted to the medical floor and placed on a heparin drip initially. An echocardiogram was obtained given her troponin elevation and showed an EF of 60% with mild to moderate eccentric mitral valve insufficiency, stage II diastolic dysfunction and moderate pulmonary artery hypertension with a right ventricular systolic pressure of 77 mmHg. We suspect that the pulmonary hypertension and the troponin elevation were related to her PE. She complained of some significant left-sided neck/scapular pain during her hospital course and her recent imaging had been reviewed. An MRI of the spine for her neck pain on 02/19 which revealed probable bone metastasis involving C7, T1 and T2 vertebral bodies, C7 spinous process, C7 left lamina, T1 spinous process, T1 left lamina, both T1 pedicles and the left T1 transverse process. There also was noted to be some abnormal soft tissue edema around the left T1-T2 intervertebral neural foramen more on the left that was highly suspicious for neoplastic metastatic infiltration. I suspect this is causing her scapular pain. While in the hospital for her pain she was treated with Decadron to help with the soft tissue edema, narcotics, muscle relaxants, and a lidocaine patch. She had good resolution of her pain with this. With this abnormal finding as an outpatient, a PET scan was obtained on 03/31/2022 and demonstrated increased uptake in the pancreatic tail, nodular density in the right anterior pelvic mesentery, accentuated tracer uptake in the seventh, first, and second thoracic vertebra as well as enhanced tracer uptake in the left and right lobes of the hepatic parenchyma. The CTA done on admission showed PE as identified above with mild small pleural effusions and pulmonary edema, bilateral pulmonary nodules and mild mediastinal lymphadenopathy that were suspicious for metastatic disease as well as a pancreatic tail mass and sclerotic lesions as previously identified in the cervical and thoracic spine. We obtained a CT of her abdomen and pelvis as well trying to identify the best placed for biopsy and this showed a heterogeneous appearance of the liver parenchymal suggestive of metastatic disease as well as heterogeneous enhancement of the spleen with a pancreatic mass measuring 2.3 cm x 2.6 cm. A CA 19-9 was obtained and was found to be 26,242. A biopsy was obtained of liver parenchyma on 04/13/2022 and pathology was pending at the time of discharge however I am highly suspicious that her primary will be pancreatic adenocarcinoma. After her biopsy was she was transition from heparin drip to Lovenox. On the she had serum creatinine elevation to almost 2 and I suspect this is contrast-induced nephropathy. She was given some IV fluids and her serum creatinine did improve to 1.7 by the time of discharge. She also has some transaminitis which seems to be medication induced versus procedural induced. We did obtain a right upper quadrant ultrasound that did not show any new pathology. With her renal dysfunction her Lovenox dosing was dose adjusted to 80 mg daily. She was able to be discharged in stable condition on 04/15/2022. I discussed her case with both Dr. Rodrigues from radiation oncology and Dr. Dawkins from medical oncology and we have appointments set up for her on 04/16/2022 at 10 AM with radiation oncology and at 3 PM with medical oncology. She will need a repeat BMP to reassess her renal function and need for increased dosing of her Lovenox once her creatinine clearance is above 30. As noted above she was started on steroids which did worsen her glycemic control. We uptitrated her basal insulin to 28 units at at bedtime and she is to continue this until otherwise notified by physician. Constipation has also been an issue. We discharged her with scheduled MiraLAX and as needed lactulose instructing her to take the lactulose if she has not had a bowel movement after 3 days. I have asked her to follow-up with her primary care physician within the next month. Discharge diagnoses: Acute pulmonary embolism Right upper extremity DVT Metastatic cancer with suspected pancreatic primary (bone, liver, spleen) NANETTE-resolving Transaminitis Left shoulder/scapular pain secondary to metastatic disease Constipation Troponin elevation secondary to PE Anemia Thrombocytopenia-resolved Hypertension Hyperlipidemia DM-2 Physical Exam Narrative Const alert, oriented x3, no apparent distress and well nourished Constitutional Narrative: Older white female sitting up in chair at the bedside, daughter at bedside, marivel ent appears comfortable and nontoxic at this time, somewhat winded after exertion to the bathroom and back General Appearance: cooperative, comfortable, well kempt and well developed Orientation / Consciousness: awake, oriented to person, oriented to place and oriented to time Exam Limitations: no limitations Nutritional Appearance: obese HEENT normocephalic, head/scalp atraumatic, hearing grossly normal bilaterally and moist oral mucous membranes HEENT Narrative: Mallampati 2-3, no thrush Eyes PERRL and EOMs intact bilaterally Eyes Narrative: No scleral icterus, mild conjunctival pallor Neck no lymphadenopathy and supple Neck Narrative: Trachea midline, no thyroid Resp normal respiratory effort, no retractions and no use of accessory muscles Resp Narrative: Few scattered crackles at bases bilaterally Auscultation: crackles; Negative for rhonchi or wheezes Cardio regular rate, regular rhythm, S1 normal heart sound, S2 normal heart sound, no murmurs, no rub, no gallops and no clicks GI normal to inspection, nondistended, normoactive bowel sounds, soft to palpation and non-tender Extremity no clubbing, cyanosis or edema Extremity Narrative: 2+ pedal pulses Skin no rashes or lesions noted, no wounds, skin turgor normal, no jaundice, no petechiae and no mottling Skin Narrative: Biopsy site with dressing intact-clean and dry Neuro oriented x3, CN's II-XII intact bilaterally, moves all extremities and no focal motor deficits Speech: speech normal Psych affect normal Psych Narrative: Very pleasant, appropriately interactive Mood & Affect: anxious Weight / BMI Weight Weight: 83.869 kg Body Mass Index (BMI) 33.8 ABG / Lab / Microbiology Data Result Diagrams: 04/15/22 05:20 04/15/22 05:20 Laboratory: Laboratory Results - last 24 hr 04/12/22 18:38: CA 19-9 Antigen 50301 H 04/14/22 11:18: POC Glucose 199 H 04/14/22 11:45: Hgb 8.6 L, Hct 27.0 L 04/14/22 11:45: Sodium 135 L, Potassium 4.5, Chloride 105, Carbon Dioxide 19.0 L , Anion Gap 11, BUN 40 H, Creatinine 2.05 H, Estim Creat Clear Calc 18.18, Est GFR (MDRD) Af Amer 30 L, Est GFR (MDRD) Non-Af 25 L, BUN/Creatinine Ratio 19.5, Glucose 182 H, Calcium 8.6 04/14/22 16:41: POC Glucose 228 H 04/14/22 21:19: POC Glucose 323 H 04/15/22 05:20: WBC 14.0 H, RBC 2.84 L, Hgb 8.5 L, Hct 26.5 L, MCV 93.3, MCH 29.9, MCHC 32.1, RDW Std Deviation 50.2 H, RDW Coeff of Rojelio 14.7 H, Plt Count 186, MPV 11.2, Immature Gran % (Auto) 1.000 H, Neut % (Auto) 85.1 H, Lymph % (Auto) 8.1 L, Amador % (Auto) 5.6, Eos % (Auto) 0.1, Baso % (Auto) 0.1, Absolute Neuts (auto) 12.0 H, Absolute Lymphs (auto) 1.13, Nucleated RBC % 0 04/15/22 05:20: Sodium 136, Potassium 4.8, Chloride 108 H, Carbon Dioxide 17.0 L , Anion Gap 11, BUN 43 H, Creatinine 1.70 H, Estim Creat Clear Calc 21.92, Est GFR (MDRD) Af Amer 37 L, Est GFR (MDRD) Non-Af 31 L, BUN/Creatinine Ratio 25.3 H , Glucose 231 H, Calcium 8.2 L, Phosphorus 4.2, Magnesium 2.0, Total Bilirubin 0.70, AST 122 H, ALT 134 H, Alkaline Phosphatase 553 H, Total Protein 6.3 L, Albumin 3.0 L, Globulin 3.3, Albumin/Globulin Ratio 0.9 04/15/22 06:39: POC Glucose 231 H 04/15/22 09:09: POC Glucose 214 H Microbiology: Microbiology 04/11/22 11:00 Nasal Secretion SARS-CoV-2 & FLU Antigen (Rapid) - Final Radiography Diagnostic Testing: Radiology Impression Abdomen Ultrasound 04/14/22 08:20 IMPRESSION: Heterogenous liver without evidence of contour nodularity. Findings are nonspecific and may be consistent with sequelae of fatty infiltration or other forms of diffuse liver disease. No evidence of focal hepatic mass. Remainder of the exam is otherwise unremarkable. Electronically Signed: Ruben Hanna MD at 17:55 EST , D/C Instructions Discharge Diet: 1800 Calorie Control Diet Discharge Activity: Return to Normal Activity Meaningful Use Info Meaningful Use Diagnoses (Choose all that apply): VTE VTE Anticoag overlap given w/in hospital stay or rx'd at dc?: Yes Pt receive overlap for 5 days?: No Reason overlap not ordered, prescribed, or given for 5 days: Treatment Not Indicated Discharge Plan Admission Admit Date/Time: 04/11/22 14:45 Primary Reason for Your Visit: Shortness of breath/chest pressure Attending Provider: Nydia Root Primary Care Provider: Indu Soria Consulting Providers: Abebe Martinez Instructions Patient Instructions: MAGUI CULP Biopsy Liver Dc, MAGUI CULP Procedural Sedation Additional Instructions / Restrictions: 1. Continue higher insulin dose as noted on her discharge instructions until instructed otherwise 2. Your blood sugars are expected to be elevated some while you are on the Decadron thus the changes in the insulin 3. Continue daily MiraLAX and utilize lactulose if you have not had a bowel movement after 3 days Discharge Orders/Prescriptions Prescriptions: New enoxaparin [Lovenox] 80 mg/0.8 mL syringe 80 mg subcut Q12H Qty: 8 3RF trazodone 50 mg Tablet 50 mg PO QHS Qty: 30 0RF polyethylene glycol 3350 17 gram Powder In Packet 17 g PO DAILY Qty: 0 0RF dexamethasone 4 mg Tablet 4 mg PO BREAKFAST Qty: 30 0RF oxycodone 5 mg Tablet 5 mg PO Q4H PRN PRN (Reason: Pain Score 6-10) 5 Days Qty: 30 0RF lactulose 20 gram/30 mL solution 20 g PO DAILY PRN (Reason: constipation) Qty: 1200 0RF Rx Instructions: Take as needed for constipation if you have not had a bowel movement after 3 days Continued multivitamin [Multiple Vitamins] Tablet 2 tab PO DAILY Trulicity 1.5 mg/0.5 mL pen injector 1.5 mg subcut QWEEK atorvastatin 10 MG tablet 10 mg PO DAILY metformin 1,000 MG tablet 1,000 mg PO BID calcium carbonate-vitamin D3 1 EACH tablet 2 ea PO DAILY carvedilol 6.25 mg tablet 12.5 mg PO BID ascorbic acid (vitamin C) 250 MG tablet 250 mg PO DAILY Cholecalciferol (Vitamin D3) [Vitamin D3] 5,000 UNIT capsule 5,000 unit PO DAILY losartan 50 mg tablet 100 mg PO DAILY cranberry 400 mg Capsule 400 mg PO DAILY Changed insulin degludec 100 unit/mL (3 mL) insulin pen 28 unit subcut QHS Qty: 15 0RF Discontinued estradiol [Estrace] 0.01 % (0.1 mg/gram) cream 1 applic VAGINAL Q3D Rx Instructions: twice weekly Eliquis 5 mg tablet 5 mg PO BID Qty: 74 0RF Rx Instructions: 10 mg twice a day for the first week. Then 5 mg twice a day. Eliquis 5 mg tablet 5 mg PO BID Referrals / Follow Up: Indu Soria DO [Primary Care Provider] - Within 2 Weeks Sheng Dawkins DO [Med Staff - Active Staff] - 04/16/22 3:00 pm Seth Araujo DO [Med Staff - Active Staff] - 04/16/22 10:00 am Disposition Disposition (needs filled in before D/C Order can be placed): Home, Self Care Charges/Coding Visit Charges Inpatient E&M: 11955 Disch Hosp >30min
[2022-04-15 11:46] LABS: Bedside Glucose 176 mg/dL (74-106)
--- NOTE | 2022-04-15 12:06 | CASEMGMT ---
RN CM in to update patient regarding cost of Lovenox prescription of $168.05. Patient states she is aware of cost and will be able to afford the prescription. CM inquired if patient had any concerns or needs at discharge, patient declined needs or concerns at this time.
--- NOTE | 2022-04-15 13:48 | PHA.DC.MC ---
Pharmacy Service has performed discharge medication reconciliation and counseling for this patient. The patient was counseled on the following discharge medications and changes in medications for homegoing were reviewed. 1. OXYCODONE 2. LOVENOX 3. DECADRON The Reason for Use, instructions for use, and potential side effects were reviewed for all new medications. The patient's questions regarding all of their medications were answered. The patient demonstrated some understanding but would benefit from further education and reinforcement. Home Medications atorvastatin 10 mg tablet 10 mg PO DAILY cholesterol 09/23/16 calcium carbonate 600 mg-vitamin D3 20 mcg (800 unit) tablet 2 ea PO DAILY supplement 09/23/16 metformin 1,000 mg tablet 1,000 mg PO BID diabetes 09/23/16 Cholecalciferol (Vitamin D3) [Vitamin D3] 5,000 unit PO DAILY vitamin 07/11/19 ascorbic acid (vitamin C) 250 mg tablet 250 mg PO DAILY vitamin 07/11/19 carvedilol 6.25 mg tablet 12.5 mg PO BID blood pressure 02/01/20 losartan 50 mg tablet 100 mg PO DAILY Blood pressure 02/01/20 cranberry 400 mg capsule 400 mg PO DAILY supplement 01/19/21 dulaglutide 1.5 mg/0.5 mL subcutaneous pen injector (Trulicity) 1.5 mg subcut QWEEK diabetes 02/25/22 multivitamin (Multiple Vitamins tablet) 2 tab PO DAILY supplement 02/25/22 enoxaparin 80 mg/0.8 mL subcutaneous syringe (Lovenox) 80 mg (0.8 mL) subcut Q12H #8 mL 04/13/22 dexamethasone 4 mg tablet 4 mg PO BREAKFAST #30 tabs 04/15/22 insulin degludec 100 unit/mL (3 mL) subcutaneous pen 28 unit (0.28 mL) subcut QHS diabetes #15 mL 04/15/22 lactulose 20 gram/30 mL oral solution 20 g (30 mL) PO DAILY PRN constipation #1,200 mL 04/15/22 oxycodone 5 mg tablet 5 mg PO Q4H PRN PRN Pain Score 6-10 5 days #30 tabs 04/15/22 polyethylene glycol 3350 17 gram oral powder packet 17 g PO DAILY #0 ea 04/15/22 trazodone 50 mg tablet 50 mg PO QHS #30 tabs 04/15/22 The patient's discharge medication list was reviewed for discrepancies and discrepancies were resolved.
== END 2022-04-15 14:40 | disposition home or self-care (01) | DRG 176 ==
LOC: ED 13:39 → PCU 14:54
PROVIDERS: Hospitalist; Admitting Provider Family Medicine; Emergency Provider Emergency Medicine; PCP Internal Medicine; Visit Provider Internal Medicine
DX: I26.99 Other pulmonary embolism without acute cor pulmonale (principal); C79.51 Secondary malignant neoplasm of bone; C78.89 Secondary malignant neoplasm of other digestive organs; C25.9 Malignant neoplasm of pancreas, unspecified; N17.9 Acute kidney failure, unspecified; C78.7 Secondary malignant neoplasm of liver and intrahepatic bile duct; I82.621 Acute embolism and thrombosis of deep veins of right upper extremity; J81.1 Chronic pulmonary edema; I27.20 Pulmonary hypertension, unspecified; D69.6 Thrombocytopenia, unspecified; E11.9 Type 2 diabetes mellitus without complications; E66.01 Morbid (severe) obesity due to excess calories; E78.5 Hyperlipidemia, unspecified; I10 Essential (primary) hypertension; D64.9 Anemia, unspecified; K59.00 Constipation, unspecified; Z80.41 Family history of malignant neoplasm of ovary; Z80.1 Family history of malignant neoplasm of trachea, bronchus and lung; Z80.8 Family history of malignant neoplasm of other organs or systems; Z79.84 Long term (current) use of oral hypoglycemic drugs; R59.0 Localized enlarged lymph nodes; R77.8 Other specified abnormalities of plasma proteins; R59.1 Generalized enlarged lymph nodes; Z66 Do not resuscitate; Z79.01 Long term (current) use of anticoagulants; Z79.52 Long term (current) use of systemic steroids; N14.11 Contrast-induced nephropathy; R74.01 Elevation of levels of liver transaminase levels; G89.3 Neoplasm related pain (acute) (chronic)
CPT/HCPCS: 36415; 71275; 74177; 76705; 77012; 80048; 80053; 82962; 83735; 84100; 84484; 85014; 85018; 85025; 85610; 85730; 86301; 87428; 88172; 88305; 88307; 88313; 88341; 88342; 93005; 93306; 99156; 99285; J7030; J7040; J7050; Q9967; A4216